=== PATIENT | male | born 1940 | race Caucasian/White ===

== ENCOUNTER 2018-03-15 07:16 | Day surgery (SDC) | payer MEDICARE ==
[2018-03-14 12:59] VITALS: BMI 27.0
[2018-03-15 07:38] VITALS: TEMP 97.6
[2018-03-15] MEDS ORDERED: LACTATED RINGERS 1,000 ML IV ONE (07:55)
--- NOTE | 2018-03-15 08:17 | P.GSHP ---
History of Present Illness H&P Date: 03/15/18 Chief Complaint: Sebaceous cyst of back This is a 77-year-old male who presents today for excision of sebaceous cyst back. Patient has had a sebaceous cyst for several years. He's had a previous excision. The area has intermittent inflammation. Past Medical History Past Medical History: Eye Disorder, Osteoarthritis (OA) Additional Past Medical History / Comment(s): "pre-diabetic", glaucoma, neuropathy feet History of Any Multi-Drug Resistant Organisms: None Reported Past Surgical History: Cholecystectomy, Joint Replacement Additional Past Surgical History / Comment(s): right hip replaced, cataract surg. Past Anesthesia/Blood Transfusion Reactions: No Reported Reaction Smoking Status: Never smoker - Past Family History Mother Family Medical History: No Reported History Medications and Allergies Home Medications Medication Instructions Recorded Confirmed Type Brimonidine Tartrate [Alphagan P 1 drops BOTH EYES BID 03/14/18 03/15/18 History 0.1% Ophth Soln] Allergies Allergy/AdvReac Type Severity Reaction Status Date / Time No Known Allergies Allergy Verified 03/15/18 07:39 Surgical - Exam Vital Signs Temp Pulse Resp BP Pulse Ox 97.6 F 67 18 146/73 98 03/15/18 07:37 03/15/18 07:37 03/15/18 07:37 03/15/18 07:37 03/15/18 07:37 - General well developed, no distress - Eyes PERRL - ENT normal pinna - Neck no masses - Respiratory normal expansion - Cardiovascular Rhythm: regular - Abdomen Abdomen: soft, non tender - Integumentary Sebaceous cyst of back. We'll perform excision.
[2018-03-15] MEDS ORDERED: LIDOCAINE 1% INJ 10MG/ML (20 ML MDV) ONE (08:29)
[2018-03-15] MEDS ORDERED: PROPOFOL 10 MG/ML 20 ML VIAL IV ONE (08:29)
[2018-03-15] MEDS ORDERED: LIDOCAINE 1%-EPI 1:100,000 30 ML VIAL SQ ONE (08:45)
[2018-03-15] MEDS ORDERED: SODIUM CHLORIDE 0.9% 50 ML with ceFAZolin 2,000 MG IV ONE ×2 (08:57)
--- NOTE | 2018-03-15 09:16 | P.OP ---
Date of Procedure: 03/15/18 Preoperative Diagnosis: Sebaceous cyst back Postoperative Diagnosis: Sebaceous cyst back Procedure(s) Performed: Excision of sebaceous cyst back Anesthesia: MAC Surgeon: Davion Sorensen Estimated Blood Loss (ml): 2 Pathology: other (Sebaceous cyst back) Condition: stable Disposition: PACU Description of Procedure: The patient's placed on the operative table in the lateral position. He received IV sedation. His back was prepped and draped in usual sterile fashion. The area of the sebaceous cyst anesthetized 1% local Xylocaine. Patient had a 3 cm sebaceous cyst. Excision of the skin was performed 15 blade. Electrocautery used to dissect the specimen free. The Bovie hemostasis. The skin was closed interrupted 3-0 Monocryl suture. Dermabond was applied. Patient tolerated the procedure well and was sent to recovery in stable condition.
[2018-03-15 09:26] VITALS: BP 166/77; PULSE 85; RESP 22
--- NOTE | 2018-03-20 09:21 | CDI ---
Outpatient Documentation Clarification Form Date : 02/18/2018 CDS/Pole Inspector Name: Hardeep Lopez Phone: If any questions, call Jesica Chacko Advanced Manufacturing Consultant at [phone] Patient Name: Yousuf Cisneros Admit Date: 03/15/2018 Discharge Date: 03/15/2018 ATTENTION: The [facility] Coding Staff appreciate your assistance in clarifying documentation. Please respond to the clarification below the line at the bottom and electronically sign. The [facility] Coding staff will review the response and follow-up if needed. Please note: Queries are made part of the Legal Health Record. If you have any questions, please contact the Advanced Manufacturing Consultant. Dear Dr. Sorensen, As per H&P it is documented as Pre-diabetes and as per Anesthesia notes it is documented as Diabetes. Please confirm whether Patient has Pre-diabetes or Diabetes (with blood glucose values). Thank you for your kind consideration. MTDD
== END 2018-03-15 09:56 | disposition home or self-care (01) ==
LOC: OR 07:16
PROVIDERS: ATTEND Surgery
DX: L02.212 Cutaneous abscess of back [any part, except buttock and flank] (principal); M19.90 Unspecified osteoarthritis, unspecified site; Z96.641 Presence of right artificial hip joint; E11.39 Type 2 diabetes mellitus with other diabetic ophthalmic complication; E11.40 Type 2 diabetes mellitus with diabetic neuropathy, unspecified; Z90.49 Acquired absence of other specified parts of digestive tract; H42 Glaucoma in diseases classified elsewhere; H40.9 Unspecified glaucoma; Z79.899 Other long term (current) drug therapy
CPT/HCPCS: 11403; 88304; J2001; J0690; J2704

== ENCOUNTER 2021-05-01 17:07 | Inpatient (IN) | payer MEDICARE ==
[2021-05-01] MEDS ORDERED: SODIUM CHLORIDE 0.9% 500 ML 500 ML IV STA (17:50)
--- NOTE | 2021-05-01 18:00 | ED ---
General Adult HPI - General Source: patient, family, EMS, RN notes reviewed, old records reviewed Mode of arrival: EMS Limitations: no limitations - History of Present Illness -: hour(s) (14) Location: chest, right, upper extremity, lower extremity (Bilateral lower) Severity scale (1-10): 1 Quality: aching Consistency: constant Associated Symptoms: weakness Treatments Prior to Arrival: none <Anthony Solorzano - Last Filed: 05/01/21 19:05> <Jennifer Lu - Last Filed: 05/01/21 23:05> - General Chief complaint: Fall Stated complaint: fall Time Seen by Provider: 05/01/21 17:38 - History of Present Illness Initial comments: This is a 80-year-old white male that presents to the emergency room with his daughter. Patient states that he was in bed sleeping at 3 AM woke up due to arthritis pain and reached over to get some pain medication. He states that the table broke and he fell off the bed landing on his abdomen. He laid there all night long until family found him. Patient denies any head injuries. He states that he has no pain other than his arthritis pain. He does state that he has right arm weakness which has been like that for a couple of years. He has a right facial droop and slurred speech that he also states has been present for 2 years. His daughter states that he seems worse to her. She states that the weakness of the right hand is definitely new. Patient states he's never been diagnosed as having a stroke. His daughter does state that his right pupil is larger than his left. He does not take any blood thinners. He states that he was unable to get up on his own because of the weakness in his hands from his arthritis. He was incontinent of bowel and bladder while laying on the floor (Anthony Solorzano) - Related Data Home Medications Medication Instructions Recorded Confirmed Ibuprofen [Advil] 200 mg PO DAILY 05/01/21 05/01/21 Allergies Allergy/AdvReac Type Severity Reaction Status Date / Time No Known Allergies Allergy Verified 05/01/21 19:14 Review of Systems ROS Other: All systems not noted in ROS Statement are negative. <Anthony Solorzano - Last Filed: 05/01/21 19:05> ROS Other: All systems not noted in ROS Statement are negative. <Jennifer Lu - Last Filed: 05/01/21 23:05> ROS Statement: Those systems with pertinent positive or pertinent negative responses have been documented in the HPI. Past Medical History Past Medical History: Eye Disorder, Osteoarthritis (OA) Additional Past Medical History / Comment(s): "pre-diabetic", glaucoma, neuropathy feet History of Any Multi-Drug Resistant Organisms: None Reported Past Surgical History: Cholecystectomy, Joint Replacement Additional Past Surgical History / Comment(s): right hip replaced, cataract surg. Past Anesthesia/Blood Transfusion Reactions: No Reported Reaction Past Psychological History: No Psychological Hx Reported Past Alcohol Use History: None Reported Past Drug Use History: None Reported - Past Family History Mother Family Medical History: No Reported History <Anthony Solorzano - Last Filed: 05/01/21 19:05> General Exam Limitations: no limitations General appearance: alert, in no apparent distress Head exam: Present: atraumatic, normocephalic, normal inspection Eye exam: Present: EOMI, other (Right pupil at 5 left pupil at 4). Absent: scleral icterus, conjunctival injection, nystagmus Pupils: Present: unequal ENT exam: Present: normal exam, normal oropharynx, mucous membranes dry Neck exam: Present: normal inspection, full ROM. Absent: tenderness, meningismus, lymphadenopathy, thyromegaly Respiratory exam: Present: normal lung sounds bilaterally. Absent: respiratory distress, wheezes, rales, rhonchi, stridor, accessory muscle use, decreased breath sounds Cardiovascular Exam: Present: regular rate, normal rhythm, normal heart sounds. Absent: systolic murmur, diastolic murmur, rubs, gallop, clicks GI/Abdominal exam: Present: soft, other (Abrasions and redness to the mid chest). Absent: distended, tenderness Right Elbow exam: Present: abrasion. Absent: tenderness, laceration, deformity Forearm Wrist exam: Present: abrasion. Absent: tenderness, laceration, deformity Hand Wrist exam: Present: other (Weakness and inability to flex and extend fingers) Neuro motor exam: Absent: wrist extension intact, thumb opposition intact, thumb IP flexion intact, thumb adduction intact, fingers 2-5 abduction intact Vascular: Present: normal capillary refill, radial pulse. Absent: vascular compromise Back exam: Present: normal inspection. Absent: tenderness, CVA tenderness (R), CVA tenderness (L), rash noted Neurological exam: Present: alert Expanded Cranial nerves: EOM's Intact: Normal, Gag Reflex: Normal, Tongue Deviation: Normal Cerebellar function: Finger to Nose: Normal, Heel to [place]: Normal Motor strength exam: RUE: 4, LUE: 5, RLE: 5, LLE: 5 Eye Response: (4) open spontaneously Motor Response: (6) obeys commands Verbal Response: (5) oriented Navin Total: 15 Psychiatric exam: Present: normal affect, normal mood Skin exam: Present: warm, dry, intact, normal color. Absent: rash, cyanosis, diaphoretic, petechiae, pallor <Anthony Solorzano - Last Filed: 05/01/21 19:05> Course Vital Signs 05/01/21 05/01/21 05/01/21 17:08 20:17 21:24 Temperature 99.9 F H 102.1 F H Pulse Rate 94 87 101 H Respiratory 17 18 18 Rate Blood Pressure 157/79 138/72 128/98 O2 Sat by Pulse 96 97 94 L Oximetry 05/01/21 05/01/21 22:53 23:02 Temperature 100.2 F H 100.8 F H Pulse Rate 92 Respiratory 18 Rate Blood Pressure 108/78 O2 Sat by Pulse 94 L Oximetry EKG Findings - EKG Results: EKG: sinus rhythm (Ventricular rate 94, RI interval .184, QRS of 0.88, QTc 0.437; normal sinus rhythm) <Anthony Solorzano - Last Filed: 05/01/21 19:05> Medical Decision Making - Lab Data Result diagrams: 05/01/21 18:00 05/01/21 18:00 <Anthony Solorzano - Last Filed: 05/01/21 19:05> - Lab Data Result diagrams: 05/01/21 18:00 05/01/21 18:00 <Jennifer Lu - Last Filed: 05/01/21 23:05> - Medical Decision Making The patient was seen and evaluated by the mid-level provider however given his slurred speech and right arm weakness I was asked to evaluate the patient immediately. Patient's slurred speech is been present for approximately 2 years. The weakness in the right arm is new today, patient does have a wrist drop. I suspect this may be due to neurapraxia likely positional from being on the floor for 14 hours. Labs were ordered CT was ordered Labs resulted multiple abnormalities. Troponin is detectable but not elevated to concerning level. Patient does have a lactic acidosis and elevated crea tinine kinase consistent with a rhabdomyolysis. Patient did develop a fever of unknown work and while in the emergency department this improved to immediately with antipyretics and IV fluids. Patient care was discussed with the patient's primary care physician Dr. Lopez who agrees with the plan for admission, IV fluid resuscitation and possible evaluation by neurology for the patient's speech difficulties which are not new and new onset of right arm weakness. Patient incontinent of urine while in the emergency department. When attempted to urinate on bedside commode also had a bowel movement therefore urinalysis was not obtained in the emergency department. (Jennifer Lu) - Lab Data Lab Results 05/01/21 05/01/21 05/01/21 Range/Units 18:00 18:00 18:00 WBC 10.3 (3.8-10.6) k/uL RBC 4.67 (4.30-5.90) m/uL Hgb 14.5 (13.0-17.5) gm/dL Hct 43.0 (39.0-53.0) % MCV 92.2 (80.0-100.0) fL MCH 31.1 (25.0-35.0) pg MCHC 33.7 (31.0-37.0) g/dL RDW 13.2 (11.5-15.5) % Plt Count 245 (150-450) k/uL MPV 8.0 Neutrophils % (Manual) 78 % Band Neuts % (Manual) 9 % Lymphocytes % (Manual) 5 % Monocytes % (Manual) 8 % Neutrophils # (Manual) 8.90 H (1.3-7.7) k/uL Lymphocytes # (Manual) 0.52 L (1.0-4.8) k/uL Monocytes # (Manual) 0.82 (0-1.0) k/uL Nucleated RBCs 0 (0-0) /100 WBC Manual Slide Review Performed PT 12.2 H (9.0-12.0) sec INR 1.2 H (<1.2) APTT 23.7 (22.0-30.0) sec Sodium 140 (137-145) mmol/L Potassium 3.6 (3.5-5.1) mmol/L Chloride 108 H (98-107) mmol/L Carbon Dioxide 21 L (22-30) mmol/L Anion Gap 11 mmol/L BUN 20 (9-20) mg/dL Creatinine 0.94 (0.66-1.25) mg/dL Est GFR (CKD-EPI)AfAm 89 (>60 ml/min/1.73 sqM) Est GFR (CKD-EPI)NonAf 77 (>60 ml/min/1.73 sqM) Glucose 134 H (74-99) mg/dL POC Glucose (mg/dL) (75-99) mg/dL POC Glu [employer] Supervisor ID Lactic Ac Sepsis Rflx Plasma Lactic Acid John (0.7-2.0) mmol/L Calcium 9.2 (8.4-10.2) mg/dL Magnesium 1.6 (1.6-2.3) mg/dL Total Bilirubin 1.6 H (0.2-1.3) mg/dL AST 71 H (17-59) U/L ALT 25 (4-49) U/L Alkaline Phosphatase 65 (38-126) U/L CK-MB (CK-2) (0.0-2.4) ng/mL Troponin I (0.000-0.034) ng/mL Total Protein 6.6 (6.3-8.2) g/dL Albumin 3.7 (3.5-5.0) g/dL 05/01/21 05/01/21 05/01/21 Range/Units 18:00 18:00 19:09 WBC (3.8-10.6) k/uL RBC (4.30-5.90) m/uL Hgb (13.0-17.5) gm/dL Hct (39.0-53.0) % MCV (80.0-100.0) fL MCH (25.0-35.0) pg MCHC (31.0-37.0) g/dL RDW (11.5-15.5) % Plt Count (150-450) k/uL MPV Neutrophils % (Manual) % Band Neuts % (Manual) % Lymphocytes % (Manual) % Monocytes % (Manual) % Neutrophils # (Manual) (1.3-7.7) k/uL Lymphocytes # (Manual) (1.0-4.8) k/uL Monocytes # (Manual) (0-1.0) k/uL Nucleated RBCs (0-0) /100 WBC Manual Slide Review PT (9.0-12.0) sec INR (<1.2) APTT (22.0-30.0) sec Sodium (137-145) mmol/L Potassium (3.5-5.1) mmol/L Chloride (98-107) mmol/L Carbon Dioxide (22-30) mmol/L Anion Gap mmol/L BUN (9-20) mg/dL Creatinine (0.66-1.25) mg/dL Est GFR (CKD-EPI)AfAm (>60 ml/min/1.73 sqM) Est GFR (CKD-EPI)NonAf (>60 ml/min/1.73 sqM) Glucose (74-99) mg/dL POC Glucose (mg/dL) (75-99) mg/dL POC Glu [employer] Supervisor ID Lactic Ac Sepsis Rflx Y Plasma Lactic Acid John 2.3 H* (0.7-2.0) mmol/L Calcium (8.4-10.2) mg/dL Magnesium (1.6-2.3) mg/dL Total Bilirubin (0.2-1.3) mg/dL AST (17-59) U/L ALT (4-49) U/L Alkaline Phosphatase (38-126) U/L CK-MB (CK-2) 7.8 H (0.0-2.4) ng/mL Troponin I 0.051 H* (0.000-0.034) ng/mL Total Protein (6.3-8.2) g/dL Albumin (3.5-5.0) g/dL 05/01/21 Range/Units 20:02 WBC (3.8-10.6) k/uL RBC (4.30-5.90) m/uL Hgb (13.0-17.5) gm/dL Hct (39.0-53.0) % MCV (80.0-100.0) fL MCH (25.0-35.0) pg MCHC (31.0-37.0) g/dL RDW (11.5-15.5) % Plt Count (150-450) k/uL MPV Neutrophils % (Manual) % Band Neuts % (Manual) % Lymphocytes % (Manual) % Monocytes % (Manual) % Neutrophils # (Manual) (1.3-7.7) k/uL Lymphocytes # (Manual) (1.0-4.8) k/uL Monocytes # (Manual) (0-1.0) k/uL Nucleated RBCs (0-0) /100 WBC Manual Slide Review PT (9.0-12.0) sec INR (<1.2) APTT (22.0-30.0) sec Sodium (137-145) mmol/L Potassium (3.5-5.1) mmol/L Chloride (98-107) mmol/L Carbon Dioxide (22-30) mmol/L Anion Gap mmol/L BUN (9-20) mg/dL Creatinine (0.66-1.25) mg/dL Est GFR (CKD-EPI)AfAm (>60 ml/min/1.73 sqM) Est GFR (CKD-EPI)NonAf (>60 ml/min/1.73 sqM) Glucose (74-99) mg/dL POC Glucose (mg/dL) 102 H (75-99) mg/dL POC Glu [employer]eles[employer] Supervisor ID Syed [place] Lactic Ac Sepsis Rflx Plasma Lactic Acid John (0.7-2.0) mmol/L Calcium (8.4-10.2) mg/dL Magnesium (1.6-2.3) mg/dL Total Bilirubin (0.2-1.3) mg/dL AST (17-59) U/L ALT (4-49) U/L Alkaline Phosphatase (38-126) U/L CK-MB (CK-2) (0.0-2.4) ng/mL Troponin I (0.000-0.034) ng/mL Total Protein (6.3-8.2) g/dL Albumin (3.5-5.0) g/dL Disposition <Anthony Solorzano - Last Filed: 05/01/21 19:05> Is patient prescribed a controlled substance at d/c from ED?: No <Jennifer Lu - Last Filed: 05/01/21 23:05> Clinical Impression: Rhabdomyolysis, Fall at home, Slurred speech, Right wrist drop Disposition: ADMITTED IP TO THIS HOSP Condition: Serious
--- NOTE | 2021-05-01 18:45 | XR ---
EXAMINATION TYPE: XR chest 2V DATE OF EXAM: 05/01/2021 COMPARISON: NONE HISTORY: Weakness TECHNIQUE: 2 views FINDINGS: There is no heart failure nor confluent pneumonic infiltrate. There is small linear density at the left lung base. There are chest leads. Bony thorax is intact. IMPRESSION: Subsegmental atelectasis left lung base. Normal heart.
[2021-05-01 18:49] LABS: Albumin 3.7 g/dL (3.5-5.0); Calcium 9.2 mg/dL (8.4-10.2); Magnesium 1.6 mg/dL (1.6-2.3); Potassium 3.6 mmol/L (3.5-5.1); Total Bilirubin 1.6 mg/dL (0.2-1.3); Total Protein 6.6 g/dL (6.3-8.2)
[2021-05-01 18:59] LABS: HGB 14.5 gm/dL (13.0-17.5); MCH 31.1 pg (25.0-35.0); MCHC 33.7 g/dL (31.0-37.0); MCV 92.2 fL (80.0-100.0); Platelet Count 245 k/uL (150-450); RBC 4.67 m/uL (4.30-5.90); RDW 13.2 % (11.5-15.5); WBC 10.3 k/uL (3.8-10.6)
--- NOTE | 2021-05-01 18:59 | CT ---
EXAMINATION TYPE: CT brain mayco mata con DATE OF EXAM: 05/01/2021 COMPARISON: None HISTORY: weakness CT DLP: 1457 mGycm Automated exposure control for dose reduction was used. Images obtained of the brain and cervical spine without contrast. There is some cerebral cortical atrophy. There is no mass effect nor midline shift. There is no sign of intracranial hemorrhage. Calvarium is intact. There is normal aeration of the mastoid sinuses. Cervical vertebra show some straightening. There is anterior spurring from C4 to C7 with bridging ost eophytes. Posterior elements are intact. There is no compression fracture. 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 No fracture. Cerebral atrophy. No acute intracranial abnormality.
[2021-05-01 19:02] LABS: INR 1.2 (<1.2); Partial Thromboplastin Time 23.7 sec (22.0-30.0); Prothrombin Time 12.2 sec (9.0-12.0)
[2021-05-01 19:07] LABS: Creatine Kinase MB 7.8 ng/mL (0.0-2.4)
[2021-05-01 19:10] LABS: Troponin I 0.051 ng/mL (0.000-0.034)
[2021-05-01] MEDS ORDERED: SODIUM CHLORIDE 0.9% 500 ML 500 ML IV ONE (19:13)
[2021-05-01 19:31] LABS: Band Neutrophils % 9 %; Lymphocytes # (M) 0.52 k/uL (1.0-4.8); Monocytes # (M) 0.82 k/uL (0-1.0); Neutrophils % (M) 78 %; Nucleated Red Blood Cells 0 /100 WBC (0-0); Total Cells Counted 100
[2021-05-01 20:03] LABS: Glucose,Whole Blood 102 mg/dL (75-99)
[2021-05-01] MEDS ORDERED: NALOXONE 0.4 MG/ML 1 ML VIAL IV PRN (20:16)
[2021-05-01] MEDS ORDERED: ACETAMINOPHEN TAB 325 MG TAB PO STA (21:26)
[2021-05-01] MEDS ORDERED: IBUPROFEN 400 MG TAB PO PRN (22:17)
[2021-05-01] MEDS ORDERED: ACETAMINOPHEN TAB 325 MG TAB PO PRN (22:17)
[2021-05-01] MEDS: SODIUM CHLORIDE 0.9% 1,000 ML IV SCH (22:58)
[2021-05-01 23:37] LABS: Appearance,Urine Clear (Clear); Bilirubin,Urine Negative (Negative); Blood,Urine Small (Negative); Color,Urine Yellow; Glucose,Urine (UA) Negative (Negative); Hyaline Casts,Urine 1 /lpf (0-2); Ketones,Urine Trace (Negative); Leukocyte Esterase,Urine Negative (Negative); Mucus,Urine Rare /hpf; Nitrite,Urine Negative (Negative); PH, Urine 5.5 (5.0-8.0); Protein,Urine 1+ (Negative); RBC,Urine 3 /hpf (0-5); Specific Gravity,Urine 1.026 (1.001-1.035); Squamous Epithelial Cell,Urine <1 /hpf (0-4); Urobilinogen,Urine <2.0 mg/dL (<2.0); WBC,Urine 1 /hpf (0-5)
[2021-05-02] MEDS ORDERED: traMADol 50 MG TAB PO PRN (11:36)
--- NOTE | 2021-05-02 12:17 | XR ---
EXAMINATION TYPE: XR wrist limited 3 views RT, XR hand limited 2 views RT DATE OF EXAM: 05/02/2021 COMPARISON: NONE HISTORY: 80-year-old male pain after fall. FINDINGS: Wrist: The radiocarpal and distal radial ulnar joint as well as the midcarpal compartment appear intact. How ever, there is bony irregularity along the proximal ulnar aspect of the lunate bone. No acute fractur e, subluxation, dislocation is seen. Osteopenia. Hands: Mild degenerative change first CMC and triscaphe joints. Mild osteoarthritic change throughout the DI P joints. No displaced fracture. No subluxation or dislocation. IMPRESSION (wrist and hand): 1. Osteopenia. No displaced fracture seen. 2. Scattered mild osteoarthritic change at the DIP joints and base of the thumb. 3. 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
[2021-05-02] MEDS: HEPARIN SODIUM,PORCINE/PF 5,000 UNIT/0.5 ML SYRINGE SQ SCH ×2 (12:19→21:08)
[2021-05-02] MEDS: PANTOPRAZOLE 40 MG TABLET PO SCH (12:19)
[2021-05-02] MEDS: SODIUM CHLORIDE 0.9% 1,000 ML IV SCH ×2 (12:21→16:52)
--- NOTE | 2021-05-02 12:25 | P.HPIM ---
History of Present Illness H&P Date: 05/02/21 (Fell on the floor or 14/15 hours with the rhabdomyolysis.) Chief Complaint: Fell down off the bed on his face could not get up stayed on the floor Past Medical History Past Medical History: Eye Disorder, Osteoarthritis (OA) Additional Past Medical History / Comment(s): "pre-diabetic", glaucoma, neuropathy feet History of Any Multi-Drug Resistant Organisms: None Reported Past Surgical History: Cholecystectomy, Joint Replacement Additional Past Surgical History / Comment(s): right hip replaced, cataract surg. Past Anesthesia/Blood Transfusion Reactions: No Reported Reaction Past Psychological History: No Psychological Hx Reported Past Alcohol Use History: None Reported Past Drug Use History: None Reported - Past Family History Mother Family Medical History: No Reported History Medications and Allergies Home Medications Medication Instructions Recorded Confirmed Type Ibuprofen [Advil] 200 mg PO DAILY 05/01/21 05/01/21 History Allergies Allergy/AdvReac Type Severity Reaction Status Date / Time No Known Allergies Allergy Verified 05/01/21 19:14 Physical Exam Vitals: Vital Signs Temp Pulse Resp BP Pulse Ox 05/02/21 07:22 98.4 F 05/02/21 07:19 85 16 112/64 96 05/02/21 06:58 97.9 F 70 19 112/62 95 05/02/21 03:00 99.0 F 87 15 102/32 95 05/01/21 23:02 100.8 F H 05/01/21 22:53 100.2 F H 92 18 108/78 94 L 05/01/21 21:24 102.1 F H 101 H 18 128/98 94 L 05/01/21 20:17 87 18 138/72 97 05/01/21 17:08 99.9 F H 94 17 157/79 96 Intake and Output 05/01/21 05/02/21 05/02/21 22:59 06:59 14:59 Other: # Voids 2 # Bowel Movements 2 Weight 83.461 kg - Constitutional General appearance: average body habitus, disheveled, mild distress - EENT Eyes: abnormal pupil, anicteric sclerae, EOMI, dentition normal Ears: bilateral: obstructed by cerumen - Neck Neck: normal ROM Carotids: bilateral: upstroke normal Thyroid: negative: normal size - Respiratory Respiratory: negative: CTA, diminished, dullness, rales, rhonchi, wheezing, prolonged expiration, prolonged inspiration - Cardiovascular Heart rate: 68 Rhythm: regular Heart sounds: normal: S1, S2 - Gastrointestinal General gastrointestinal: normal bowel sounds - Genitourinary Incontinent of urine and stools - Neurologic Right facial drooping, nasolabial fold flat on the right side, abnormal uvula, end of the mouth deviated to the left side of the face as well as the tongue to the right side, inability to use the upper extremities. Hand and wrist as well Neurologic: CNII-XII intact - Musculoskeletal Musculoskeletal: right sided weakness (Right lower extremities longer than the left lower extremities.) Slurred speech inability to walk except with a rocking, history of stroke. Probably affecting the internal capsule. Results CBC & Chem 7: 05/01/21 18:00 05/01/21 18:00 Labs: Abnormal Lab Results - Last 24 Hours (Table) 05/01/21 05/01/21 05/01/21 Range/Units 18:00 18:00 18:00 Neutrophils # (Manual) 8.90 H (1.3-7.7) k/uL Lymphocytes # (Manual) 0.52 L (1.0-4.8) k/uL PT 12.2 H (9.0-12.0) sec INR 1.2 H (<1.2) Chloride 108 H (98-107) mmol/L Carbon Dioxide 21 L (22-30) mmol/L Glucose 134 H (74-99) mg/dL POC Glucose (mg/dL) (75-99) mg/dL Plasma Lactic Acid John (0.7-2.0) mmol/L Total Bilirubin 1.6 H (0.2-1.3) mg/dL AST 71 H (17-59) U/L Creatine Kinase (55-170) U/L CK-MB (CK-2) (0.0-2.4) ng/mL Troponin I (0.000-0.034) ng/mL Urine Protein (Negative) Urine Ketones (Negative) Urine Blood (Negative) Urine Mucus (None) /hpf 05/01/21 05/01/21 05/01/21 Range/Units 18:00 18:00 20:02 Neutrophils # (Manual) (1.3-7.7) k/uL Lymphocytes # (Manual) (1.0-4.8) k/uL PT (9.0-12.0) sec INR (<1.2) Chloride (98-107) mmol/L Carbon Dioxide (22-30) mmol/L Glucose (74-99) mg/dL POC Glucose (mg/dL) 102 H (75-99) mg/dL Plasma Lactic Acid John 2.3 H* (0.7-2.0) mmol/L Total Bilirubin (0.2-1.3) mg/dL AST (17-59) U/L Creatine Kinase (55-170) U/L CK-MB (CK-2) 7.8 H (0.0-2.4) ng/mL Troponin I 0.051 H* (0.000-0.034) ng/mL Urine Protein (Negative) Urine Ketones (Negative) Urine Blood (Negative) Urine Mucus (None) /hpf 05/01/21 05/01/21 05/01/21 Range/Units 21:13 21:35 23:15 Neutrophils # (Manual) (1.3-7.7) k/uL Lymphocytes # (Manual) (1.0-4.8) k/uL PT (9.0-12.0) sec INR (<1.2) Chloride (98-107) mmol/L Carbon Dioxide (22-30) mmol/L Glucose (74-99) mg/dL POC Glucose (mg/dL) (75-99) mg/dL Plasma Lactic Acid John 2.2 H* (0.7-2.0) mmol/L Total Bilirubin (0.2-1.3) mg/dL AST (17-59) U/L Creatine Kinase 2716 H* (55-170) U/L CK-MB (CK-2) (0.0-2.4) ng/mL Troponin I (0.000-0.034) ng/mL Urine Protein 1+ H (Negative) Urine Ketones Trace H (Negative) Urine Blood Small H (Negative) Urine Mucus Rare H (None) /hpf
[2021-05-02] MEDS ORDERED: MD COMMUNICATION TO PHARMACY 1 EACH MISC PO PRN (13:56)
[2021-05-02] MEDS: VANCOMYCIN 125 MG CAPSULE PO SCH ×3 (16:51→21:09)
[2021-05-02 17:08] LABS: Chol/HDL Ratio 3.27; LDL Cholesterol,Calculated 77.6 mg/dL (0.0-131.0); VLDL Calculation 15.4 mg/dL (5.00-40.00)
[2021-05-03] MEDS: SODIUM CHLORIDE 0.9% 1,000 ML IV SCH ×3 (04:54→20:57)
[2021-05-03] MEDS: HEPARIN SODIUM,PORCINE/PF 5,000 UNIT/0.5 ML SYRINGE SQ SCH ×3 (04:54→20:57)
[2021-05-03] MEDS: PANTOPRAZOLE 40 MG TABLET PO SCH (06:53)
[2021-05-03 08:48] LABS: Basophils % (A) 0 %; Eosinophils # (A) 0.2 k/uL (0-0.7); Eosinophils % (A) 2 %; HCT 39.6 % (39.0-53.0); HGB 12.8 gm/dL (13.0-17.5); Lymphocytes # (A) 1.2 k/uL (1.0-4.8); Lymphocytes % (A) 15 %; MCH 30.7 pg (25.0-35.0); MCHC 32.2 g/dL (31.0-37.0); MCV 95.2 fL (80.0-100.0); Mean Platelet Volume 7.7; Monocytes # (A) 0.7 k/uL (0-1.0); Monocytes % (A) 9 %; Neutrophils # (A) 5.4 k/uL (1.3-7.7); Neutrophils % (A) 69 %; Platelet Count 196 k/uL (150-450); RBC 4.16 m/uL (4.30-5.90); RDW 12.9 % (11.5-15.5); WBC 7.8 k/uL (3.8-10.6)
[2021-05-03 09:04] LABS: African American GFR (CKD) >90 (>60 ml/min/1.73 sqM); Anion Gap 6 mmol/L; Blood Urea Nitrogen 13 mg/dL (9-20); Calcium 7.9 mg/dL (8.4-10.2); Carbon Dioxide 19 mmol/L (22-30); Chloride 114 mmol/L (98-107); Creatine Kinase 651 U/L (55-170); Glucose 91 mg/dL (74-99); Magnesium 1.7 mg/dL (1.6-2.3); Non-African American GFR(CKD) 89 (>60 ml/min/1.73 sqM); Potassium 3.5 mmol/L (3.5-5.1); Sodium 139 mmol/L (137-145)
[2021-05-03] MEDS: DORZOLAMIDE-TIMOLOL 2.23%/0.68 10ML BTL BOTH EYES SCH ×2 (09:06→21:01)
[2021-05-03] MEDS: ARTIFICIAL TEARS-HYPROMELLOSE DROPS 15 ML BTL BOTH EYES SCH ×3 (09:06→21:01)
[2021-05-03] MEDS: BRIMONIDINE TARTRATE 0.2% DROPS 5 ML BTL BOTH EYES SCH ×2 (09:06→21:01)
[2021-05-03] MEDS: VANCOMYCIN 125 MG CAPSULE PO SCH ×4 (09:06→20:58)
--- NOTE | 2021-05-03 11:45 | MR ---
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 FINDINGS: Diffusion weighted images demonstrate no evidence of a recent infarct or other diffusion ab normality. There is no extra-axial fluid collection. There is some scattered hyperintensities along the external capsule region, basal ganglia on the left on inversion recovery T2-weighted sequences, some confluent hyperintensity in the pericallosal, subcortical white matter. The ventricular system a nd cisternal spaces are normal in size and appearance. The brain volume is age appropriate, there is cortical atrophy. The internal auditory canals, cerebellopontine angles are unremarkable. There is some inflammatory ch jeffery in the mastoid air cells on the right. Midline structures demonstrate normal morphology, there is a partially empty sella. The craniocervic al junction appears within normal limits. Post contrast images demonstrate no abnormal enhancement. The dural venous sinuses appear patent. The visualized sinuses are clear and the globes are intact. IMPRESSION: Age-related changes of atrophy and chronic small vessel ischemia among no evident cerebel lopontine angle mass or subacute ischemia
[2021-05-03] MEDS: SODIUM BICARBONATE TAB 650 MG TAB PO SCH ×2 (13:26→20:57)
[2021-05-03] MEDS: ASPIRIN 81 MG PO SCH (13:27)
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
--- NOTE | 2021-05-03 14:46 | US ---
EXAMINATION TYPE: US carotid duplex BILAT DATE OF EXAM: 05/03/2021 COMPARISON: NONE CLINICAL HISTORY: fall, weakness. Weakness, slurred speech EXAM MEASUREMENTS: RIGHT: Peak Systolic Velocity (PSV) cm/sec ----- Right CCA: 73.2 ----- Right ICA: 93.0 ----- Right ECA: 122.4 ICA/CCA ratio: 1.3 RIGHT: End Diastole cm/sec ----- Right CCA: 13.8 ----- Right ICA: 24.8 ----- Right ECA: 0.0 LEFT: Peak Systolic Velocity (PSV) cm/sec ----- Left CCA: 76.6 ----- Left ICA: 116.0 ----- Left ECA: 108.5 ICA/CCA ratio: 1.5 LEFT: End Diastole cm/sec ----- Left CCA: 11.7 ----- Left ICA: 16.3 ----- Left ECA: 0.0 VERTEBRALS (direction of flow): Right Vertebral: Antegrade Left Vertebral: Antegrade Rhythm: Normal Grayscale, color Doppler, spectral Doppler imaging performed of the carotid arteries. Waveform analys is does not show significant stenosis of the internal carotid arteries. No significant stenosis seen bilaterally IMPRESSION: No hemodynamic significant stenosis of the proximal internal carotid arteries by Doppler criteria, an indirect measurement of carotid stenosis Criteria for Assigning % of Stenosis / Diameter reduction (Estimation based on the indirect measurements of the internal carotid artery velocities (ICA PSV). 1. Normal (no stenosis)=ICA PSV < 125 cm/s: ratio < 2.0: ICA EDV<40 cm/s. 2. Less than 50% stenosis=ICA PSV < 125 cm/s: ratio < 2.0: ICA EDV<40 cm/s. 3. 50 to 69% stenosis=ICA PSV of 125 to 230 cm/s: ration 2.0 ? 4.0: ICA EDV 40-100 cm/s. 4. Greater than 70% stenosis to near occlusion= ICA PSV > 230 cm/s: ratio > 4.0: ICA EDV > 100 cm/s. 5. Near occlusion= ICA PSV velocities may be low or undetectable: variable ratio and ICA EDV. 6. Total occlusion=unable to detect flow.
--- NOTE | 2021-05-03 17:35 | P.PN ---
Subjective Progress Note Date: 05/03/21 (, C. difficile diarrhea.) Principal diagnosis: Diagnosis #1 rhabdomyolysis, fell off the bed could not get up a down on the floor for 14- 15 hours. #2 incontinent of urine and stools associated with diarrhea positive for C. difficile treated with vancomycin, and infectious disease consultation. #3 right facial drooping, slurred speech, weakness on the right side, midline walking difficulties with the underlying suspicious of old CVA in the left hemispheric clinically. #4 lactic acidosis, with metabolic acidosis. Secondary to rhabdomyolysis and muscle breakdown. #5 bilateral cataract surgery and present of glucoma treated by line server Dr. Dr. Ireland. #6 right hip surgery arthroplasty, done in [place], right leg longer than the left leg with need adjustment in his feet. #7 right wrist drop likely due to right radial nerve compression from prolonged lying on the floor. #8 possible history of CVA with mild residual dysarthria and right facial asymmetry with the MRI and the computed tomography scan was negative. #9 C. difficile positive was colitis diarrhea. #10 osteoarthritis #11 abnormal a LT urology unclear #12 severe hearing deficit with the hearing aid. #13 MRI done today revealed scattered hyper intensities along the external capsule region and the basal ganglia on the left on inversion recovery T2 weighted sequences, some hyper intensity in thepericallosal, sup cortical white matter. Which substantiate the clinical evidence of stroke right sided with the fascial drooping on the right side and slurred speech which happened on the left side of the brain no acute stroke. #14 LDL 77 Progress note Date of service 05/03/2021. Dictation by Dr. Lopez. Patient seen today [id number] and discussed with patient and his daughter and his son-in-law. Dr. Reyes neurologist did see the patient evaluated him today and he ordered some laboratories. MRI of the brain was indicating no acute stroke however changes in the left hemispheric could be related to old stroke consistent with the current manifestation. With the presence all hyper intensity along the external capsule region, basal ganglia on the left on inversion recovery [id number] sequence as well hyper intensity in the pericallosal, subcortical white matter. Carotid duplex study was no hemodynamic significant stenosis. Consultation with physical therapy, occupational therapy, speech therapy was ordered. C. difficile testing positive for the diarrhea patient started on vancomycin oral 4 times a day and consultation with infectious disease for for further input or treatment. Patient will need inpatient rehabilitation at [facility] or [facility] recovery and [facility] his [facility]. Patient is conscious alert he able to eat with natural teeth however he stated that he had occasionally choking. Speech pathology was consulted Head was normocephalic and atraumatic, pupil right pupil wider than the left pupil , right fascial drooping with loss of nasolabial fold, angle of the mouth pulled to the left side. Speech is slurred and difficult to understand. 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 Neck was supple no JVD no thyromegaly no lymphadenopathy trachea midline. Chest: Clear to auscultation and percussion no wheezes nor rhonchi's. Heart: Regular sinus rhythm no dysrhythmia and no history of heart attack in the past or angina. Abdomen soft positive bowel sounds no tenderness in the 4 quadrants, wearing diaper with incontinent of the urine and the p.m. with the underlying history of diarrhea. 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 No evidence of fracture, no edema, positive pulses bilateral 1+ over 2+ with the underlying mild peripheral vascular disease. The left lower extremities shorter than the right lower extremities Right total hip arthroplasty in [place]. Assessment: #1 need for further rehabilitation and adjustment shoes for the lower extremities to balance. #2 need for rehabilitation in a fdc of patient choice. #3 diarrhea with C. difficile need to be treated and we did consult Dr. Daniel infectious disease. #4 remote history of CVA clinically present with the underlying clinically positive criteria and the MRI did not clear that he has acute stroke on this admission Patient is a new to me and the first time number seen in the office before. With vague past history #5 metabolic acidosis started on sodium bicarb 325 mg twice a day with the carbon dioxide 19. Line #6 rhabdomyolysis. Plan: We will wait for the results of the testing ordered by Dr. Childs neurologist Physical therapy, speech therapy, *Started fdc for long-term rehabilitation. Rhabdomyolysis is still high and will check again tomorrow. Lactic acid normalized. Objective - Vital Signs Vital signs: Vital Signs Temp 98.1 F 05/03/21 08:00 Pulse 90 05/03/21 12:00 Resp 18 05/03/21 12:00 BP 132/63 05/03/21 12:00 Pulse Ox 96 05/03/21 12:00 Intake & Output 05/02/21 05/03/21 05/03/21 18:59 06:59 18:59 Intake Total 240 Output Total 1 2 1 Balance -1 -2 239 Weight 79.379 kg 86 kg Intake: Oral 240 Output: Stool 1 2 1 Other: Voiding Method Bedside Commode Diaper Diaper Diaper Incontinent Incontinent Incontinent # Voids 1 2 # Bowel Movements 1 2 - Labs CBC & Chem 7: 05/03/21 07:40 05/03/21 07:40 Labs: Abnormal Lab Results - Last 24 Hours (Table) 05/03/21 05/03/21 Range/Units 07:40 07:40 RBC 4.16 L (4.30-5.90) m/uL Hgb 12.8 L (13.0-17.5) gm/dL Chloride 114 H (98-107) mmol/L Carbon Dioxide 19 L (22-30) mmol/L Calcium 7.9 L (8.4-10.2) mg/dL Creatine Kinase 651 H (55-170) U/L
[2021-05-03 21:53] LABS: Cyclic Citrull Pep IgG Unit <0.5 U/mL; Cyclic Citrullinated Pep IgG NEGATIVE (NEGATIVE)
[2021-05-04] MEDS: HEPARIN SODIUM,PORCINE/PF 5,000 UNIT/0.5 ML SYRINGE SQ SCH ×3 (05:37→20:17)
[2021-05-04] MEDS: SODIUM CHLORIDE 0.9% 1,000 ML IV SCH ×2 (05:38→17:36)
[2021-05-04] MEDS: PANTOPRAZOLE 40 MG TABLET PO SCH (06:46)
[2021-05-04] MEDS ORDERED: CYANOCOBALAMIN 1,000 MCG/ML 1 ML VIAL IM ONE (09:19)
[2021-05-04] MEDS: SODIUM BICARBONATE TAB 650 MG TAB PO SCH ×2 (09:20→20:17)
[2021-05-04] MEDS: ARTIFICIAL TEARS-HYPROMELLOSE DROPS 15 ML BTL BOTH EYES SCH ×3 (09:20→20:17)
[2021-05-04] MEDS: VANCOMYCIN 125 MG CAPSULE PO SCH ×4 (09:20→20:18)
[2021-05-04] MEDS: ASPIRIN 81 MG PO SCH (09:20)
[2021-05-04] MEDS: DORZOLAMIDE-TIMOLOL 2.23%/0.68 10ML BTL BOTH EYES SCH ×2 (09:21→20:17)
[2021-05-04] MEDS: BRIMONIDINE TARTRATE 0.2% DROPS 5 ML BTL BOTH EYES SCH ×2 (09:21→20:17)
[2021-05-04 10:00] LABS: African American GFR (CKD) >90 (>60 ml/min/1.73 sqM); Anion Gap 6 mmol/L; Blood Urea Nitrogen 8 mg/dL (9-20); Calcium 7.9 mg/dL (8.4-10.2); Carbon Dioxide 22 mmol/L (22-30); Chloride 111 mmol/L (98-107); Creatine Kinase 243 U/L (55-170); Glucose 104 mg/dL (74-99); Non-African American GFR(CKD) 90 (>60 ml/min/1.73 sqM); Potassium 3.2 mmol/L (3.5-5.1); Sodium 139 mmol/L (137-145)
--- NOTE | 2021-05-04 11:39 | CDI ---
Documentation Clarification Form Date: 05/04/2021 11:19:26 AM From: Linette Knott RN, CCDS Admit Date: 05/01/2021 08:16:00 PM Patient Name: Yousuf Cisneros Visit Number: [id number] Discharge Date: ATTENTION: The Clinical Documentation Specialists (CDI) and [facility] Coding Staff appreciate your assistance in clarifying documentation. Please respond to the clarification below the line at the bottom and electronically sign. The CDI & [facility] Coding staff will review the response and follow-up if needed. Please note: Queries are made part of the Legal Health Record. If you have any questions, please contact the author of this message via ITS. Dr. Agustin Lopez Rhabdomyolysis is documented in the emergency department assessment, H&P and subsequent progress notes. [Additional clarification regarding the type of rhabdomyolysis is requested. History/Risk Factors: Arthritis Clinical Indicators: 80-year-old male present to ED found by family on floor after fall. He was on floor approximately 14-15 hours. He had new weakness in the right arm with wrist drop due to neurapraxia likely positional from being on floor for 14 hours per ED assessment. 05/01 Vital sign: 128/98 101 18 102.1 05/01 WBC 10.3, Neutrophils 8.90, Lactic acid 2.3, 2.2; Creatine Kinase 2716, CK- MB 7.8, Troponin I 0.051, Covid -19 Not detected; C. Difficile-Positive. Treatment: .9 NS 1000 MLS X2 then @ 100 MLS/HR Monitor Labs: CBC, BUN, CR, Lytes, creatine kinase, CK-MB per orders Please clarify the type of rhabdomyolysis, if known: [x ] Traumatic rhabdomyolysis due to fall [ ] Traumatic rhabdomyolysis due to prolonged immobility [ ] Other, please specify [ ] Unable to Determine (Template Last Revised: October 2020) Patient fall off the bed could not stand up stayed on the floor for 1415 hours until the family member came and helped. It is also on the admission note as well MTDD
--- NOTE | 2021-05-04 12:57 | P.PN ---
Subjective Progress Note Date: 05/04/21 (Rhabdomyolysis, fall off the bed, prolongated time on the floor, vitamin D deficiency, CVA with the right hemiparesis and facial drooping and speech disturbance) Prognosis note Dictation by Dr. Naranjo date of service 05/04/2021. Speech pathology did evaluate the patient today Mrs. [place] speech pathologist vinod parikh evaluation was nondiagnostic and she requesting a modified barium swallow and we agreed with that with a history of intermittent choking. Today he was complaining of the food doesn't taste well and he like this to, also he has C. difficile colitis with distention of the abdomen tympanitic on percussion and still have diarrhea, we consulted Dr. Daniel infectious disease and patient already on vancomycin orally. We'll consult dietitian for evaluation and treatment with the adjusting the diet Obtain abdominal x-ray with the tympanitic percussion and still diarrhea. 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 Patient had rhabdomyolysis with dehydration improving the serum creatine kinase today level 243 still but mildly elevated, potassium 3.2 with the hydration, vitamin B12 262 with vitamin B12 deficiency, plan to have vitamin B12 1000 g IM today and once a week subsequently. Positive stool for occult blood when association with C. difficile colitis. Rheumatoid factor 9 which is normal, CCP negative. Serum folate 15 which is normal, renal function stable blood glucose normal and hemoglobin A1c 5 with no evidence of diabetes mellitus. On the physical exam: Patient is conscious alert oriented able to communicate as a slurred speech able to eat but the food doesn't palatable to him and he need easy to swallow with a soft diet and will plan for dietitian consultation. HEENT: No changes pupil is on equal, oropharynx natural teeth and the modified barium swallow was planned for tomorrow a.m. I did speak with the speech pathologist Neck was supple no JVD no thyromegaly no lymphadenopathy trachea midline, carotid duplex scan was negative no hemodynamic significant stenosis. Chest clear to auscultation and percussion. Heart regular sinus rhythm no dysrhythmia. GI: Tympanitic abdomen with discomfort on percussion and decreased bowel sounds and diarrhea associated with C. difficile colitis currently on vancomycin oral and we will be obtaining x-ray of the abdomen today. And the speech pathology will do modified barium swallow tomorrow. Genitourinary: Patient is incontinent to urine and stools. Extremities no edema. Pulses however is 1+ over 2+, right hip prosthesis, right lower extremity longer than the left lower extremities, currently he is on the rehab with the plan for fpc prolonged rehabilitation.. Neurological evaluation: Seen by Dr. Reyes neurologist with the underlying suspicious of the left hemispheric CVA by MRI as mentioned in the report with the right facial drooping slurred speech and weakness in the right side. The right hand and the right breast with radial nerve compression was prolonged compression on the floor when he fell down for prolongated. 14-15 hour. He his daughter. Assessment: We requested vitamin D is not available yet with the low calcium 7.9. Modified barium swallow tomorrow. Vitamin B12 deficiency and Dr. Reyes given injection of vitamin B12 1000 g IM however this will need to be repeated at the next fpc once a week for 4 weeks and recheck vitamin B12 as well as switching to oral sublingual. Dr. Daniel infectious disease has been consulted because of the C. difficile colitis and infection. We'll follow his recommendation as well. Continue hydration with the rhabdomyolysis. Vital sign is stable. Plan continue the IV hydration for rhabdomyolysis, wait for modified barium swallow tomorrow, that is hypokalemia and we will recommend potassium supplementation as well and probably obtain ionized calcium for hypocalcemia. Plan for transfer to fpc when the bed is available in 48 hour period Objective - Vital Signs Vital signs: Vital Signs Temp 97.7 F 05/04/21 08:00 Pulse 82 05/04/21 08:00 Resp 16 05/04/21 08:00 BP 116/55 05/04/21 08:00 Pulse Ox 96 05/04/21 08:00 Intake & Output 05/03/21 05/04/21 05/04/21 18:59 06:59 18:59 Intake Total 358 180 Output Total 1 1 Balance 357 179 Weight 84 kg Intake: Oral 358 180 Output: Stool 1 1 Other: Voiding Method Diaper Diaper Diaper Incontinent Incontinent Incontinent # Voids 2 1 # Bowel Movements 2 2 1 - Labs CBC & Chem 7: 05/03/21 07:40 05/04/21 08:23 Labs: Abnormal Lab Results - Last 24 Hours (Table) 05/03/21 05/04/21 Range/Units 13:50 08:23 ESR 27 H (0-15) mm/hr Potassium 3.2 L (3.5-5.1) mmol/L Chloride 111 H (98-107) mmol/L BUN 8 L (9-20) mg/dL Glucose 104 H (74-99) mg/dL Calcium 7.9 L (8.4-10.2) mg/dL Creatine Kinase 243 H (55-170) U/L
[2021-05-04 13:18] LABS: Basophils % (A) 0 %; Eosinophils # (A) 0.2 k/uL (0-0.7); Eosinophils % (A) 2 %; HCT 41.5 % (39.0-53.0); Lymphocytes # (A) 1.6 k/uL (1.0-4.8); Lymphocytes % (A) 18 %; MCH 29.7 pg (25.0-35.0); MCHC 31.4 g/dL (31.0-37.0); MCV 94.5 fL (80.0-100.0); Mean Platelet Volume 7.4; Monocytes # (A) 0.8 k/uL (0-1.0); Monocytes % (A) 9 %; Neutrophils # (A) 6.2 k/uL (1.3-7.7); Neutrophils % (A) 68 %; Platelet Count 248 k/uL (150-450); RBC 4.39 m/uL (4.30-5.90); RDW 12.8 % (11.5-15.5); WBC 9.2 k/uL (3.8-10.6)
--- NOTE | 2021-05-04 13:42 | XR ---
EXAMINATION TYPE: XR abdomen complete w decub DATE OF EXAM: 05/04/2021 COMPARISON: NONE HISTORY: Pain TECHNIQUE: Supine, upright, and left side down lateral decubitus views of the abdomen are obtained. FINDINGS: Multiple dilated bowel loops with air-fluid levels. Hypertrophic and degenerative change sp ine. Linear changes involving the lung bases and surgical clips in right upper quadrant. Arthropathy of the left hip and postsurgical change right hip. Calcifications in the pelvis likely vascular. Diff use osteopenia. IMPRESSION: Nonspecific gas pattern correlate for distal obstruction versus ileus.
[2021-05-04 15:15] VITALS: BMI 27.3
[2021-05-04] MEDS: POTASSIUM CHLORIDE 10 MEQ in WATER FOR INJECTION 1 100ML.BAG IVPB SCH ×4 (17:33→21:31)
--- NOTE | 2021-05-04 22:15 | P.PN ---
Subjective Progress Note Date: 05/04/21 Patient was seen for a follow-up. Patient offers no new complaints. Patient had low-grade fever today. Patient has been diagnosed with C. difficile colitis. He is on oral vancomycin. Objective - Vital Signs Vital signs: Vital Signs Temp 98.2 F 05/04/21 16:00 Pulse 94 05/04/21 16:00 Resp 18 05/04/21 16:00 BP 134/60 05/04/21 16:00 Pulse Ox 95 05/04/21 16:00 Intake & Output 05/04/21 05/04/21 05/05/21 06:59 18:59 06:59 Intake Total 1018 Output Total 2 Balance 1016 Weight 84 kg 84 kg Intake: Oral 1018 Output: Stool 2 Other: Voiding Method Diaper Diaper Incontinent Incontinent # Voids 1 1 # Bowel Movements 2 3 - Exam Deferred. Mentation is normal. He is hard of hearing. - Labs CBC & Chem 7: 05/04/21 13:01 05/04/21 08:23 Labs: Abnormal Lab Results - Last 24 Hours (Table) 05/04/21 Range/Units 08:23 Potassium 3.2 L (3.5-5.1) mmol/L Chloride 111 H (98-107) mmol/L BUN 8 L (9-20) mg/dL Glucose 104 H (74-99) mg/dL Calcium 7.9 L (8.4-10.2) mg/dL Creatine Kinase 243 H (55-170) U/L Vitamin D 25-Hydroxy 26.4 L (30.0-100.0) ng/mL Assessment and Plan Assessment: * Status post fall by sliding off the bed, and laying on the floor for about 12 hours. Patient not able to get up because of generalized weakness, probably related to diarrhea from C. difficile and his underlying severe osteoarthritis of upper extremities. * New onset right wrist drop, likely due to right radial nerve compression from prolonged laying on the floor. * Previous history of possible CVA in the past, with mild residual dysarthria and right facial asymmetry. MRI of the brain revealed no acute stroke. * Mild B12 deficiency. * C. difficile colitis * Osteoarthritis * Minimally elevated ALT. * Hard of hearing. Plan: * Patient has developed right wrist drop, probably due to right radial nerve palsy from laying on the right arm for prolonged period of time. He. Hopefully will improve with time. Avoid laying on the right side, to prevent further compression of the right radial nerve. * May need outpatient EMG and nerve conduction studies of right upper extremity as outpatient, if symptoms persist beyond 2 weeks. * Patient is being treated for C. difficile colitis. * MRI of the brain revealed focal area of encephalomalacia along the basal ganglia on the right is again noted consistent with remote infarct. No acute process. Age-related changes of atrophy and chronic small vessel ischemia. No CP angle mass. * Carotid Doppler revealed no hemodynamic significant stenosis of proximal ICA. Antegrade flow in both vertebral arteries. * Continue aspirin 81 mg daily for stroke prevention. * Lipid panel with cholesterol 134, LDL 77, HDL 41 and triglycerides 77. No indication for statins. * B12 262, folate 15.0, MMA and B6 pending, ESR 27, RA negative, CCP negative and hemoglobin A1c 5.0. We will start B12 replacement. * PT and OT.
--- NOTE | 2021-05-04 23:01 | P.CONS ---
History of Present Illness - Reason for Consult Consult date: 05/04/21 C. diff colitis Requesting physician: Agustin Lopez - Chief Complaint Weakness and was found on ground x 1 day - History of Present Illness Patient is a 80-year-old male with a past medical history significant for CVA, patient was brought to [facility] ER on 05/01/2021 after pending the patient did fell down and the night before while trying to get his a rthritis medication and later on the floor. The patient was found by the family the next day or 2 without the patient was having more weakness and concern for a new stroke, patient subsequently has been admitted to hospital and stroke workup is in progress and the patient is being seen by neurology MRI did shows evidence of previous infarct, patient did have a fever of 120 Fahrenheit on presentation to the hospital, patient did have a UA that was negative chest x-ray with evidence of any pneumonia, patient did have diarrhea stool for C. diff was sent which came back positive for C. diff toxin, and patient was started on vancomycin and infectious disease was consulted to possibly for further management, at the time of my evaluation this morning the patient is pleasantly confused and elevated good historian, when asked specifically for home therapy went to the bathroom he was unable to answer no vomiting has been reported and the patient when asked specific denies having abdominal pain no chest pain shortness of breath or cough overall he still remains to be elevated as mostly information has been obtained from review the chart Review of Systems Positive points has been mentioned in HPI complete review could not be obtained because of his underlying mental status Past Medical History Past Medical History: Eye Disorder, Osteoarthritis (OA) Additional Past Medical History / Comment(s): glaucoma, History of Any Multi-Drug Resistant Organisms: C-DIFF Year Discovered:: 05/02/2021 MDRO Source:: Stool Past Surgical History: Cholecystectomy, Joint Replacement Additional Past Surgical History / Comment(s): right hip replaced, cataract surg. Past Anesthesia/Blood Transfusion Reactions: No Reported Reaction Smoking Status: Never smoker - Past Family History Mother Family Medical History: No Reported History Father Family Medical History: No Reported History Medications and Allergies Home Medications Medication Instructions Recorded Confirmed Type Ibuprofen [Advil] 200 mg PO DAILY 05/01/21 05/01/21 History Timolol/Brimonidin/Dorzolam/Pf 2 drop BOTH EYES BID 05/02/21 05/03/21 History [Timolol 0.5%/Brim 0.15%/Dorzolam 2% Ophth Soln] Artificial Tears-Hypromellose 1 drops BOTH EYES TID 05/03/21 05/03/21 History [Artificial Tear Drops] Allergies Allergy/AdvReac Type Severity Reaction Status Date / Time No Known Allergies Allergy Verified 05/01/21 19:14 Physical Exam Vitals: Vital Signs Temp Pulse Resp BP Pulse Ox 05/04/21 04:00 98.1 F 78 18 148/75 92 L 05/04/21 02:00 75 18 05/03/21 23:56 98.2 F 75 18 129/60 96 05/03/21 20:00 98.4 F 82 18 118/59 95 05/03/21 16:00 98.2 F 94 18 134/60 95 05/03/21 12:00 90 18 132/63 96 Intake and Output 05/03/21 05/04/21 05/04/21 22:59 06:59 14:59 Intake Total 180 Balance 180 Intake: Oral 180 Other: Voiding Method Diaper Diaper Incontinent Incontinent # Voids 1 # Bowel Movements 2 Weight 84 kg GENERAL DESCRIPTION: Elderly male lying in bed, no distress. No tachypnea or accessory muscle of respiration use. HEENT: Shows Pallor , no scleral icterus. Oral mucous membrane is dry. No pharyngeal erythema or thrush NECK: Trachea central, no thyromegaly. LUNGS: Unlabored breathing. Clear to auscultation anteriorly. No wheeze or crackle. HEART: S1, S2, regular rate and rhythm. No loud murmur ABDOMEN: Soft, no tenderness , guarding or rigidity, no organomegaly EXTREMITIES: No edema of feet. SKIN: No rash, no masses palpable. NEUROLOGICAL: The patient is awake, alert, oriented x1, mood and affect normal. Results CBC & Chem 7: 05/04/21 13:01 05/04/21 08:23 Labs: Abnormal Lab Results - Last 24 Hours (Table) 05/03/21 05/04/21 Range/Units 13:50 08:23 ESR 27 H (0-15) mm/hr Potassium 3.2 L (3.5-5.1) mmol/L Chloride 111 H (98-107) mmol/L BUN 8 L (9-20) mg/dL Glucose 104 H (74-99) mg/dL Calcium 7.9 L (8.4-10.2) mg/dL Creatine Kinase 243 H (55-170) U/L Assessment and Plan Assessment: 1-patient presented to the hospital after the patient was noticed to be on the floor after fall the night before with evidence of rhabdomyolysis patient did have a fever and diarrhea now with a stool for C. diff positive likely symptomatic C. diff colitis as there are no other FOCUS of infection (1) C. difficile colitis Current Visit: Yes Status: Acute Code(s): A04.72 - ENTEROCOLITIS D/T CLOSTRIDIUM DIFFICILE, NOT SPCF RECUR SNOMED Code(s): 393460382 Plan: 1-vancomycin 125 mg by mouth every 6 hours 10 days 2-we'll add Questran if the diarrhea persist 3-contact isolation We will follow on clinical condition and cultures to further adjust medication if needed Thank you for this consultation will follow this patient with you Time with Patient: Greater than 30
[2021-05-05] MEDS: HEPARIN SODIUM,PORCINE/PF 5,000 UNIT/0.5 ML SYRINGE SQ SCH ×3 (04:32→20:13)
[2021-05-05] MEDS: SODIUM CHLORIDE 0.9% 1,000 ML IV SCH ×3 (04:33→20:13)
[2021-05-05] MEDS: PANTOPRAZOLE 40 MG TABLET PO SCH (06:42)
[2021-05-05 08:00] LABS: African American GFR (CKD) >90 (>60 ml/min/1.73 sqM); Anion Gap 5 mmol/L; Blood Urea Nitrogen 4 mg/dL (9-20); Calcium 7.9 mg/dL (8.4-10.2); Carbon Dioxide 22 mmol/L (22-30); Chloride 113 mmol/L (98-107); Glucose 94 mg/dL (74-99); Non-African American GFR(CKD) >90 (>60 ml/min/1.73 sqM); Potassium 3.4 mmol/L (3.5-5.1); Sodium 140 mmol/L (137-145)
[2021-05-05] MEDS: VANCOMYCIN 125 MG CAPSULE PO SCH ×4 (08:20→20:13)
[2021-05-05] MEDS: SODIUM BICARBONATE TAB 650 MG TAB PO SCH ×2 (08:21→20:13)
[2021-05-05] MEDS: ASPIRIN 81 MG PO SCH (08:21)
[2021-05-05] MEDS: ARTIFICIAL TEARS-HYPROMELLOSE DROPS 15 ML BTL BOTH EYES SCH ×3 (08:22→20:14)
[2021-05-05] MEDS: DORZOLAMIDE-TIMOLOL 2.23%/0.68 10ML BTL BOTH EYES SCH (08:22)
[2021-05-05] MEDS: BRIMONIDINE TARTRATE 0.2% DROPS 5 ML BTL BOTH EYES SCH ×2 (08:37→20:14)
[2021-05-05] MEDS: POTASSIUM CHLORIDE ER 20 MEQ TAB.ER PO SCH ×2 (12:07→20:13)
[2021-05-05] MEDS: CHOLECALCIFEROL 25 MCG (1000 IU) TABLET PO SCH (12:07)
--- NOTE | 2021-05-05 13:03 | P.PN ---
Subjective Progress Note Date: 05/05/21 (C. difficile enteritis with colitis. Rhabdomyolysis improving, left atmospheric old CVA with right hemiparesis involving fascial. Right wrist radial nerve compression.) Progress note dictation by Dr. Lopez Date of service 05/05/2021. Discussed with his daughter the patient and the nurse JUSTIN Singh. We requested the check with [facility] on in regards acceptance of the patient with the C. difficile in [place] treatment "treatment needed for 10 days total, " Also waiting for Dr. De León the surgeon in regard of the metastatic abdomen with distention questionable ileus versus obstruction and hopefully he will see him today. In regards of rhabdomyolysis has been significant improvement and it will continue to improve subsequently as outpatient. Speech pathologist did cancel his MBS test due to effect of the distention of the abdomen and clear liquid diet, however these tests can be done and later date as he is able to eat and swallow in the hospital without choking. Patient still have diarrhea and loose bowel as his daughter and the patient stated yesterday. With no significant improvement yet but still is abdomen is tympanitic on percussion with discomfort. On examination today, patient is conscious alert oriented able to communicate his daughter at bedside trying to help him and feed him. Also his nurse in in the room with the discussion. Head was normocephalic and atraumatic, pupil is on equal, bilateral cataract surgery in the past underlying glaucoma and he has drops. Right facial asymmetry with the loss of nasolabial fold and deviation of the angle of the mouth. And slurred his speech. Neck was supple no JVD no thyromegaly no lymphadenopathy trachea midline. Chest is clear to auscultation percussion no wheezes no rhonchi's. Heart regular sinus rhythm no dysrhythmia. No chest pain Abdomen: Tympanitic on percussion vague discomfort still diarrhea positive blood probably associated with the enterocolitis from the C. difficile with normal hemoglobin Extremities right hip arthroplasty, right lower extremities longer than the left, Neurological examination no acute changes. Assessment currently we are waiting for the need the general surgeon Dr. De León for evaluation if there is any further treatment needed #2 also clarification with the [facility] and the accepting the patient with C. difficile before completing the treatment for 10 days. Patient did not have any added Questran so far, was suggested by Dr. Daniel infectious disease. Able to eat without choking and modified barium swallow has been canceled by the speech pathology. 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 Rhabdomyolysis improving significantly. With hydration. Lactic acidosis is resolved Patient living alone need for further rehabilitation and the plan for [facility] when bed is available and acceptance after surgical evaluation. Plan: We'll continue current medication and plan Discussed with patient and his daughter and his nurse. Electrolyte in a.m. to assess his potassium with the underlying hypokalemia Started on K-Dur 20 milliequivalent twice a day added to the protocol due to loss of potassium with the diarrhea and still low potassium. Objective - Vital Signs Vital signs: Vital Signs Temp 97.9 F 05/05/21 12:46 Pulse 83 05/05/21 12:46 Resp 18 05/05/21 12:46 BP 145/71 05/05/21 12:46 Pulse Ox 98 05/05/21 12:46 Intake & Output 05/04/21 05/05/21 05/05/21 18:59 06:59 18:59 Intake Total 1018 Output Total 2 Balance 1016 Weight 84 kg 87 kg Intake: Oral 1018 Output: Stool 2 Other: Voiding Method Diaper Diaper Diaper Incontinent Incontinent Incontinent # Voids 1 1 1 # Bowel Movements 3 - Labs CBC & Chem 7: 05/04/21 13:01 05/05/21 07:18 Labs: Abnormal Lab Results - Last 24 Hours (Table) 05/01/21 05/04/21 05/05/21 Range/Units 21:13 08:23 07:18 Potassium 3.4 L (3.5-5.1) mmol/L Chloride 113 H (98-107) mmol/L BUN 4 L (9-20) mg/dL Creatinine 0.64 L (0.66-1.25) mg/dL Calcium 7.9 L (8.4-10.2) mg/dL Myoglobin 1452 H (28-72) ng/mL Vitamin D 25-Hydroxy 26.4 L (30.0-100.0) ng/mL
--- NOTE | 2021-05-05 14:36 | P.GSCN ---
History of Present Illness Consult date: 05/05/21 History of present illness: This is a 80-year-old male presents to the hospital with C. difficile colitis. Is having multiple bowel movements a day 4-5. Already this morning. He denies any nausea vomiting. He denies any abdominal pain at this time. He is passing gas. He is tolerating a clear liquid diet. Past Medical History Past Medical History: Eye Disorder, Osteoarthritis (OA) Additional Past Medical History / Comment(s): glaucoma, History of Any Multi-Drug Resistant Organisms: C-DIFF Year Discovered:: 05/02/2021 MDRO Source:: Stool Past Surgical History: Cholecystectomy, Joint Replacement Additional Past Surgical History / Comment(s): right hip replaced, cataract surg. Past Anesthesia/Blood Transfusion Reactions: No Reported Reaction Smoking Status: Never smoker - Past Family History Mother Family Medical History: No Reported History Father Family Medical History: No Reported History Medications and Allergies Home Medications Medication Instructions Recorded Confirmed Type Ibuprofen [Advil] 200 mg PO DAILY 05/01/21 05/01/21 History Timolol/Brimonidin/Dorzolam/Pf 2 drop BOTH EYES BID 05/02/21 05/03/21 History [Timolol 0.5%/Brim 0.15%/Dorzolam 2% Ophth Soln] Artificial Tears-Hypromellose 1 drops BOTH EYES TID 05/03/21 05/03/21 History [Artificial Tear Drops] Allergies Allergy/AdvReac Type Severity Reaction Status Date / Time No Known Allergies Allergy Verified 05/01/21 19:14 Surgical - Exam Osteopathic Statement: *. No significant issues noted on an osteopathic structural exam other than those noted in the History and Physical/Consult. Vital Signs Temp Pulse Resp BP Pulse Ox 99.9 F H 94 17 157/79 96 05/01/21 17:08 05/01/21 17:08 05/01/21 17:08 05/01/21 17:08 05/01/21 17:08 - General well developed, well nourished, no distress - Neck trachea midline - Respiratory normal expansion, normal respiratory effort - Cardiovascular Rhythm: regular - Abdomen distended Abdomen: soft, non tender - Neurologic normal coordination, normal sensation - Psychiatric oriented to time, oriented to person, oriented to place Results - Labs 05/04/21 13:05/05/21 07:18 Abnormal Lab Results - Last 24 Hours (Table) 05/01/21 05/03/21 05/04/21 Range/Units 21:13 13:50 08:23 Potassium (3.5-5.1) mmol/L Chloride (98-107) mmol/L BUN (9-20) mg/dL Creatinine (0.66-1.25) mg/dL Calcium (8.4-10.2) mg/dL Myoglobin 1452 H (28-72) ng/mL Vitamin B6 3 L (5-50) ug/L Vitamin D 25-Hydroxy 26.4 L (30.0-100.0) ng/mL 05/05/21 Range/Units 07:18 Potassium 3.4 L (3.5-5.1) mmol/L Chloride 113 H (98-107) mmol/L BUN 4 L (9-20) mg/dL Creatinine 0.64 L (0.66-1.25) mg/dL Calcium 7.9 L (8.4-10.2) mg/dL Myoglobin (28-72) ng/mL Vitamin B6 (5-50) ug/L Vitamin D 25-Hydroxy (30.0-100.0) ng/mL Diabetes panel 05/05/21 Range/Units 07:18 Sodium 140 (137-145) mmol/L Potassium 3.4 L (3.5-5.1) mmol/L Chloride 113 H (98-107) mmol/L Carbon Dioxide 22 (22-30) mmol/L BUN 4 L (9-20) mg/dL Creatinine 0.64 L (0.66-1.25) mg/dL Glucose 94 (74-99) mg/dL Calcium 7.9 L (8.4-10.2) mg/dL Calcium panel 05/05/21 Range/Units 07:18 Calcium 7.9 L (8.4-10.2) mg/dL Pituitary panel 05/05/21 Range/Units 07:18 Sodium 140 (137-145) mmol/L Potassium 3.4 L (3.5-5.1) mmol/L Chloride 113 H (98-107) mmol/L Carbon Dioxide 22 (22-30) mmol/L BUN 4 L (9-20) mg/dL Creatinine 0.64 L (0.66-1.25) mg/dL Glucose 94 (74-99) mg/dL Calcium 7.9 L (8.4-10.2) mg/dL Adrenal panel 05/05/21 Range/Units 07:18 Sodium 140 (137-145) mmol/L Potassium 3.4 L (3.5-5.1) mmol/L Chloride 113 H (98-107) mmol/L Carbon Dioxide 22 (22-30) mmol/L BUN 4 L (9-20) mg/dL Creatinine 0.64 L (0.66-1.25) mg/dL Glucose 94 (74-99) mg/dL Calcium 7.9 L (8.4-10.2) mg/dL Assessment and Plan Assessment: Cdiff colitis Plan: Patient is having BM and passing gas. No Nausea or vomiting or clinical signs of obstruction. Continue ID recs for antibiotics for treatment of Cdiff. Distention likely secondary to Cdiff. No plans for acute general surgical intervention
--- NOTE | 2021-05-05 15:05 | P.PN ---
Subjective Progress Note Date: 05/05/21 Patient was seen for a follow-up. Patient offers no new complaints. Patient is laying comfortably in the bed. Patient has been diagnosed with C. difficile colitis. He is on oral vancomycin. Objective - Vital Signs Vital signs: Vital Signs Temp 97.9 F 05/05/21 12:46 Pulse 83 05/05/21 12:46 Resp 18 05/05/21 12:46 BP 145/71 05/05/21 12:46 Pulse Ox 98 05/05/21 12:46 Intake & Output 05/04/21 05/05/21 05/05/21 18:59 06:59 18:59 Intake Total 1018 Output Total 2 Balance 1016 Weight 84 kg 87 kg Intake: Oral 1018 Output: Stool 2 Other: Voiding Method Diaper Diaper Diaper Incontinent Incontinent Incontinent # Voids 1 1 1 # Bowel Movements 3 - Exam Deferred. Mentation is normal. He is hard of hearing. Patient continues to have slurred speech, right facial droop. Right wrist drop, has not changed. - Labs CBC & Chem 7: 05/04/21 13:01 05/06/21 09:19 Labs: Abnormal Lab Results - Last 24 Hours (Table) 05/01/21 05/03/21 05/04/21 Range/Units 21:13 13:50 08:23 Potassium (3.5-5.1) mmol/L Chloride (98-107) mmol/L BUN (9-20) mg/dL Creatinine (0.66-1.25) mg/dL Calcium (8.4-10.2) mg/dL Myoglobin 1452 H (28-72) ng/mL Vitamin B6 3 L (5-50) ug/L Vitamin D 25-Hydroxy 26.4 L (30.0-100.0) ng/mL 05/05/21 Range/Units 07:18 Potassium 3.4 L (3.5-5.1) mmol/L Chloride 113 H (98-107) mmol/L BUN 4 L (9-20) mg/dL Creatinine 0.64 L (0.66-1.25) mg/dL Calcium 7.9 L (8.4-10.2) mg/dL Myoglobin (28-72) ng/mL Vitamin B6 (5-50) ug/L Vitamin D 25-Hydroxy (30.0-100.0) ng/mL Assessment and Plan Assessment: * Status post fall by sliding off the bed, and laying on the floor for about 12 hours. Patient not able to get up because of generalized weakness, probably related to diarrhea from C. difficile and his underlying severe osteoarthritis of upper extremities. * New onset right wrist drop, likely due to right radial nerve compression from prolonged laying on the floor. * Previous history of possible CVA in the past, with mild residual dysarthria and right facial asymmetry. MRI of the brain revealed no acute stroke. * Mild B12 deficiency. * Vitamin B6 deficiency * C. difficile colitis * Osteoarthritis * Minimally elevated ALT. * Hard of hearing. Plan: * Patient has developed right wrist drop, probably due to right radial nerve palsy from laying on the right arm for prolonged period of time. He. Hopefully will improve with time. Avoid laying on the right side, to prevent further compression of the right radial nerve. * May need outpatient EMG and nerve conduction studies of right upper extremity as outpatient, if symptoms persist beyond 2 weeks. * Patient is being treated for C. difficile colitis. * MRI of the brain revealed focal area of encephalomalacia along the basal ganglia on the right is again noted consistent with remote infarct. No acute process. Age-related changes of atrophy and chronic small vessel ischemia. No CP angle mass. * Carotid Doppler revealed no hemodynamic significant stenosis of proximal ICA. Antegrade flow in both vertebral arteries. * Continue aspirin 81 mg daily for stroke prevention. * Lipid panel with cholesterol 134, LDL 77, HDL 41 and triglycerides 77. No indication for statins. * B12 262, folate 15.0, MMA 0.29 normal. B6 3 (5-50), ESR 27, RA negative, CCP negative and hemoglobin A1c 5.0. We will start B12 and vitamin B6 replacement. * PT and OT.
--- NOTE | 2021-05-05 15:40 | PN ---
PROGRESS NOTE DATE OF SERVICE: 05/05/2021 REASON FOR FOLLOWUP: C difficile colitis. INTERVAL HISTORY: The patient is afebrile. He is breathing comfortably. He seems to be slightly more awake and alert. He is still complaining of diarrhea; unable to tell me how many times he went to the bathroom. No chest pain occasional cough. PHYSICAL EXAMINATION: Blood pressure 145/71 with a pulse of 83, temperature 97.9. He is 98% on room air. GENERAL DESCRIPTION: General description is an elderly male lying in bed in no distress. RESPIRATORY SYSTEM: Unlabored breathing. Clear to auscultation anteriorly. HEART: S1, S2. Regular rate and rhythm. ABDOMEN: Soft. No tenderness. LABS: Hemoglobin is 13, white count 9.2. BUN , creatinine 0.64. DIAGNOSTIC IMPRESSION AND PLAN: Patient with Clostridium difficile colitis, on oral vancomycin. Still complaining of diarrhea. Will add Questran for symptomatic relief and continue supportive care. Continue with oral vancomycin. MMODL / IJN: [id number] /
[2021-05-05] MEDS: CYANOCOBALAMIN 1,000 MCG/ML 1 ML VIAL IM SCH (16:01)
[2021-05-05] MEDS: PYRIDOXINE 50 MG TAB PO SCH ×2 (16:02→20:13)
[2021-05-05] MEDS: CHOLESTYRAMINE (WITH SUGAR) 4 GM PACKET PO SCH (18:01)
[2021-05-06] MEDS: SODIUM CHLORIDE 0.9% 1,000 ML IV SCH (04:38)
[2021-05-06] MEDS: HEPARIN SODIUM,PORCINE/PF 5,000 UNIT/0.5 ML SYRINGE SQ SCH ×2 (04:38→11:29)
[2021-05-06] MEDS: PANTOPRAZOLE 40 MG TABLET PO SCH (06:19)
[2021-05-06] MEDS: VANCOMYCIN 125 MG CAPSULE PO SCH ×2 (08:58→11:29)
[2021-05-06] MEDS: CHOLESTYRAMINE (WITH SUGAR) 4 GM PACKET PO SCH (08:58)
[2021-05-06] MEDS: POTASSIUM CHLORIDE ER 20 MEQ TAB.ER PO SCH (08:58)
[2021-05-06] MEDS: ARTIFICIAL TEARS-HYPROMELLOSE DROPS 15 ML BTL BOTH EYES SCH ×2 (08:59→17:01)
[2021-05-06] MEDS: PYRIDOXINE 50 MG TAB PO SCH (08:59)
[2021-05-06] MEDS: CHOLECALCIFEROL 25 MCG (1000 IU) TABLET PO SCH (08:59)
[2021-05-06] MEDS: ASPIRIN 81 MG PO SCH (08:59)
[2021-05-06] MEDS: BRIMONIDINE TARTRATE 0.2% DROPS 5 ML BTL BOTH EYES SCH (08:59)
[2021-05-06] MEDS: SODIUM BICARBONATE TAB 650 MG TAB PO SCH (09:00)
[2021-05-06] MEDS: CYANOCOBALAMIN 1,000 MCG/ML 1 ML VIAL IM SCH (09:00)
[2021-05-06] MEDS: DORZOLAMIDE-TIMOLOL 2.23%/0.68 10ML BTL BOTH EYES SCH (09:00)
[2021-05-06 10:10] LABS: Potassium 3.8 mmol/L (3.5-5.1)
--- NOTE | 2021-05-06 13:00 | P.DS ---
Providers Date of admission: 05/01/21 20:16 Expected date of discharge: 05/06/21 Attending physician: Agustin Lopez Consults: 05/03/21 06:41 Consult Physician Urgent Consulting Provider: Shiv Drake Consult Reason/Comments: r/o cva Do you want consulting provider notified?: Yes 05/03/21 15:27 Consult Physician Routine Consulting Provider: Lissa Daniel Consult Reason/Comments: Cdiff on PO vanco Do you want consulting provider notified?: Yes 05/04/21 14:07 Consult Physician Routine Consulting Provider: Rey Diggs Consult Reason/Comments: obstruction vs ileas/ Occult positive stool Do you want consulting provider notified?: Yes Primary care physician: Agustin Lopez Discharge summary date of service 05/06/[address] Lopez Disposition Continue rehabilitation and admission to [facility] for further evaluation and treatment. Final diagnoses: #1 rhabdomyolysis resulted from falling off the bed laying down on the floor for 14-15 hours till his daughter came and checked on him. #2 severe C. difficile with enterocolitis C. difficile infection associated with electrolyte imbalance and hypokalemia. #3 remote left CVA and right facial drooping, slurred speech, occasional dysphagia with the bedside speech pathology evaluation was negative. Prior to discharge speech pathology will do modified barium swallow for evaluation prior to discharge to [facility]. For jail rehabilitation. #4 bilateral cataract surgery in the past with the presence of glaucoma treated by Dr. Dario peralta ophthalmologists. #5 urinary incontinence, stool incontinent, #6 patient lives alone with need for more than 20 pupil 4 his ADLs. #7 vitamin B12 deficiency #8 vitamin B6 deficiency. #9 hypocalcemia associated with vitamin D deficiency, ionized calcium was normal. #10 mild elevation of d-dimer, ultrasound of the lower extremities negative for DVT. #11 right radial nerve in the rest compression with laying down on the floor causing decreased function and recommendation from neurology Dr. Odonnell to see as outpatient urologist Procedure done during his hospitalization including the emergency room. Computed tomography scan of the brain Consultation with neurology Dr. Reyes Consultation with general surgeon Dr. anne. Ultrasound of the lower extremities negative for DVT Modified barium swallow with a history of stroke and remote history of choking result is pending. Chest x-ray negative Abdominal x-ray with distention, seen by Dr. anne the surgeon, secondary symptoms of C. difficile and colitis and to continue the current antibiotic. Carotid testing ordered by Dr. Reyes was negative. With no hemodynamic significant stenosis and the EKG normal sinus rhythm and no evidence of congestive heart failure. Presentation to the emergency room Patient fell off the bed could not move or get up stayed on the floor for 14-15 hours. His previous physician Dr. Bates. in the ER patient and the family requested me to see the patient and to treat him. Elevated CPK need to be hydrated with the also extremity finger that he had probable a stroke considered as initially as an acute however the computed tomography scan was negative. Hospital course: Patient admitted and monitored serum creatine kinase, he had also peripheral edema, for further evaluation and testing to rule out DVT. With review of the laboratories for further electrolyte abnormalities and vitamin deficiency and hypokalemia, which she has been covered. And patient has been recovered and need for further rehab in [facility]. [id number] exam on discharge. Patient is going for MBS study for swallowing. Head was normocephalic and atraumatic, right pupil wider than the left pupil Oropharynx natural teeth able to eat and swallow, his right facial drooping and angle of the mouth pulled to the left side. And slurred speech. Had weakness also in the right-sided. Neck was supple no JVD no thyromegaly no lymphadenopathy, trachea midline Chest was clear to auscultation percussion Heart regular sinus rhythm no history of CT in the past or chest pain Abdomen: Mild distention distention with percussion positive bowel sounds and he has bowel movement however slowest due to the C. difficile colitis. Extremities: No edema, positive pulses bilateral, right lower leg is longer than the left lower leg, with the history of right hip prosthesis done in [place]. For further need of balancing of his left foot with the thick soles of the shoes and can be done as an rehab [facility] Neurologically patient no change in mental status and his neurological finding is stable need for further rehabilitation. Assessment and plan: Patient will have today MBS study followed by discharge to [facility] with the current medication. I did review the medication and no narcotic in it. We'll follow him as outpatient in the jail as he is a new patient to me. Patient Condition at Discharge: Serious Plan - Discharge Summary Discharge Rx Participant: Yes New Discharge Prescriptions: New Cyanocobalamin [Vitamin B-12 Injection] 1,000 mcg IM WEEKLY #20 ml Cholecalciferol [Vitamin D3 (25 Mcg = 1000 Iu)] 100 mcg PO DAILY #30 tablet Aspirin 81 mg PO DAILY tab Potassium Chloride ER [K-Dur 20] 20 meq PO BID #60 tablet Pantoprazole [Protonix] 40 mg PO AC-BRKFST #60 tab Cholestyramine (with Sugar) [Questran Packet] 4 gm PO BID@1000,1800 #20 packet Acetaminophen Tab [Tylenol] 650 mg PO Q6HR PRN tab PRN Reason: Mild Pain Or Fever > 100.5 Vancomycin 125 mg PO QID 10 Days #40 Pyridoxine [Vitamin B-6] 50 mg PO BID #60 tab Continue Timolol/Brimonidin/Dorzolam/Pf [Timolol 0.5%/Brim 0.15%/Dorzolam 2% Ophth Soln] 2 drop BOTH EYES BID Artificial Tears-Hypromellose [Artificial Tear Drops] 1 drops BOTH EYES TID Discontinued Ibuprofen [Advil] 200 mg PO DAILY Discharge Medication List Timolol/Brimonidin/Dorzolam/Pf [Timolol 0.5%/Brim 0.15%/Dorzolam 2% Ophth Soln] 2 drop BOTH EYES BID 05/02/21 [History] Artificial Tears-Hypromellose [Artificial Tear Drops] 1 drops BOTH EYES TID 05/03/21 [History] Acetaminophen Tab [Tylenol] 650 mg PO Q6HR PRN tab 05/06/21 [Rx] Aspirin 81 mg PO DAILY tab 05/06/21 [Rx] Cholecalciferol [Vitamin D3 (25 Mcg = 1000 Iu)] 100 mcg PO DAILY #30 tablet 05/06/21 [Rx] Cholestyramine (with Sugar) [Questran Packet] 4 gm PO BID@1000,1800 #20 packet 05/06/21 [Rx] Cyanocobalamin [Vitamin B-12 Injection] 1,000 mcg IM WEEKLY #20 ml 05/06/21 [Rx] Pantoprazole [Protonix] 40 mg PO AC-BRKFST #60 tab 05/06/21 [Rx] Potassium Chloride ER [K-Dur 20] 20 meq PO BID #60 tablet 05/06/21 [Rx] Pyridoxine [Vitamin B-6] 50 mg PO BID #60 tab 05/06/21 [Rx] Vancomycin 125 mg PO QID 10 Days #40 05/06/21 [Rx]
[2021-05-06 13:06] VITALS: BP 172/78; PULSE 88; RESP 17; TEMP 98.3
--- NOTE | 2021-05-06 13:59 | FL ---
EXAMINATION TYPE: FL barium swallow w video DATE OF EXAM: 05/06/2021 COMPARISON: NONE HISTORY: Dysarthria, weakness, rule out aspiration. The patient was evaluated in the lateral projection during real-time fluoroscopy, during ingestion of barium mixed with solids and liquids. No aspiration or laryngeal penetration. See report from [facility] pathology. Vallecular residuals were noted. Delayed initiation of the swallow was present. 2 minutes 36 seconds fluoroscopy time, no images obtained
--- NOTE | 2021-05-06 15:16 | PN ---
PROGRESS NOTE DATE OF SERVICE: 05/06/2021 REASON FOR FOLLOWUP: C difficile colitis. INTERVAL HISTORY: The patient is afebrile. The patient is breathing comfortably. Denies having any chest pain, shortness of breath or cough. No abdominal pain. Diarrhea has slowed down. PHYSICAL EXAMINATION: Blood pressure is 172/78 with a pulse of 88, temperature 98.3. He is 93% on room air. GENERAL DESCRIPTION: General description is an elderly male lying in bed in no distress. RESPIRATORY SYSTEM: Unlabored breathing. Clear to auscultation anteriorly. HEART: S1, S2. Regular rate and rhythm. ABDOMEN: Soft. No tenderness. EXTREMITIES: No edema of the feet. LABS: Creatinine 0.64. DIAGNOSTIC IMPRESSION AND PLAN: Patient with Clostridium difficile colitis; seems to be clinically responding to the oral vancomycin and Questran; to continue to finish a 10-day course of therapy and monitor his clinical course closely. Continue supportive care. MMODL / IJN: [id number] /
--- NOTE | 2021-05-06 18:56 | P.PN ---
Subjective Progress Note Date: 05/06/21 Patient was seen for a follow-up. Patient offers no new complaints. Patient is laying comfortably in the bed. Patient has been diagnosed with C. difficile colitis. He is on oral vancomycin. Objective - Vital Signs Vital signs: Vital Signs Temp 98.3 F 05/06/21 12:00 Pulse 88 05/06/21 12:00 Resp 17 05/06/21 12:00 BP 172/78 05/06/21 12:00 Pulse Ox 93 L 05/06/21 12:00 Intake & Output 05/05/21 05/06/21 05/06/21 18:59 06:59 18:59 Intake Total 180 Balance 180 Weight 85.5 kg Intake: Oral 180 Other: Voiding Method Diaper Diaper Diaper Incontinent Incontinent Incontinent # Voids 1 1 - Exam Patient's mental status appears normal. Continues to have some dysarthric speech. No aphasia. Cranial nerves significant for right facial asymmetry. Tongue protrudes to the midline. Patient is hard of hearing. Patient has dysphagia. Discussed with speech therapist. Other cranial nerves normal. Muscle strength continues to show right wrist drop. Rest of the muscles are normal. Patient's tone is mild to moderately increased on the right, mildly on the left. No tremors at rest noted. Patient is bradykinetic. Patient has some shuffling gait noted by the nurse when he walked with a therapist. - Labs CBC & Chem 7: 05/04/21 13:01 05/06/21 09:19 Labs: Abnormal Lab Results - Last 24 Hours (Table) 05/06/21 Range/Units 09:19 Chloride 111 H (98-107) mmol/L Assessment and Plan Assessment: * Status post fall by sliding off the bed, and laying on the floor for about 12 hours. Patient not able to get up because of generalized weakness, probably related to diarrhea from C. difficile and his underlying severe osteoarthritis of upper extremities. * New onset right wrist drop, likely due to right radial nerve compression from prolonged laying on the floor. * Previous history of possible CVA in the past, with mild residual dysarthria and right facial asymmetry. MRI of the brain revealed no acute stroke. 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 No signs of Parkinson's disease. * Mild B12 deficiency. * Vitamin B6 deficiency * C. difficile colitis * Osteoarthritis * Minimally elevated ALT. * Hard of hearing. Plan: * Patient has developed right wrist drop, probably due to right radial nerve palsy from laying on the right arm for prolonged period of time. He. Hopefully will improve with time. Avoid laying on the right side, to prevent further compression of the right radial nerve. * May need outpatient EMG and nerve conduction studies of right upper extremity as outpatient, if symptoms persist beyond 2 weeks. * Patient is being treated for C. difficile colitis. * MRI of the brain revealed focal area of encephalomalacia along the basal ganglia on the right is again noted consistent with remote infarct. No acute process. Age-related changes of atrophy and chronic small vessel ischemia. No CP angle mass. * Carotid Doppler revealed no hemodynamic significant stenosis of proximal ICA. Antegrade flow in both vertebral arteries. * Continue aspirin 81 mg daily for stroke prevention. * Lipid panel with cholesterol 134, LDL 77, HDL 41 and triglycerides 77. No indication for statins. * B12 262, folate 15.0, MMA 0.29 normal. B6 3 (5-50), ESR 27, RA negative, CCP negative and hemoglobin A1c 5.0. Suggest continue B12 1000 g IM monthly and vitamin B6 50 mg twice a day for 2 weeks and then 50 mg once daily thereafter. * Recommended patient's daughter for him to follow up with a neurologist as outpatient.
== END 2021-05-06 17:00 | DRG 372 ==
LOC: EC 17:07 → 3SCARD 20:16
PROVIDERS: ADMIT Internal Medicine; ATTEND Internal Medicine
DX: A04.72 Enterocolitis due to Clostridium difficile, not specified as recurrent (principal); E87.2 Acidosis; G81.91 Hemiplegia, unspecified affecting right dominant side; J98.11 Atelectasis; T79.6XXA Traumatic ischemia of muscle, initial encounter; E53.1 Pyridoxine deficiency; E53.8 Deficiency of other specified B group vitamins; E55.9 Vitamin D deficiency, unspecified; E86.0 Dehydration; E87.6 Hypokalemia; G56.31 Lesion of radial nerve, right upper limb; I69.328 Other speech and language deficits following cerebral infarction; I69.392 Facial weakness following cerebral infarction; H40.9 Unspecified glaucoma; R79.1 Abnormal coagulation profile; H91.90 Unspecified hearing loss, unspecified ear; I73.9 Peripheral vascular disease, unspecified; M21.331 Wrist drop, right wrist; M47.9 Spondylosis, unspecified; Z20.822 Contact with and (suspected) exposure to COVID-19; E87.8 Other disorders of electrolyte and fluid balance, not elsewhere classified; M17.0 Bilateral primary osteoarthritis of knee; R26.2 Difficulty in walking, not elsewhere classified; W06.XXXA Fall from bed, initial encounter; Y92.003 Bedroom of unspecified non-institutional (private) residence as the place of occurrence of the external cause; M85.80 Other specified disorders of bone density and structure, unspecified site; R13.10 Dysphagia, unspecified; R32 Unspecified urinary incontinence; Z96.641 Presence of right artificial hip joint; Z60.2 Problems related to living alone
CPT/HCPCS: 36415; 70450; 70553; 71046; 72125; 74021; 74230; 80048; 80051; 80053; 80061; 81001; 82272; 82306; 82330; 82550; 82553; 82607; 82746; 83036; 83605; 83735; 83874; 83921; 84207; 84484; 85025; 85610; 85652; 85730; 86200; 86431; 87324; 87338; 87635; 93005; 93880; 96360; 96361; 99285

== ENCOUNTER → 2021-06-29 | Outpatient (CLI) | payer MEDICARE ==
[2021-06-29 15:44] LABS: Basophils # (A) 0.02 X 10*3/uL (0.00-0.10); Basophils % (A) 0.7 %; Eosinophils # (A) 0.01 X 10*3/uL (0.04-0.35); Eosinophils % (A) 0.4 %; HGB 13.6 g/dL (13.0-17.0); Lymphocytes # (A) 0.86 X 10*3/uL (0.90-5.00); Lymphocytes % (A) 31.9 %; MCH 29.2 pg (27.0-32.0); MCHC 30.9 g/dL (32.0-37.0); MCV 94.6 fL (80.0-97.0); Mean Platelet Volume 9.6 fL (9.5-12.2); Monocytes # (A) 0.38 X 10*3/uL (0.20-1.00); Monocytes % (A) 14.1 %; Neutrophils # (A) 1.43 X 10*3/uL (1.80-7.70); Neutrophils % (A) 52.9 %; Platelet Count 194 X 10*3/uL (140-440); RBC 4.65 X 10*6/uL (4.40-5.60); RDW 13.1 % (11.5-14.5)
[2021-06-29 17:01] LABS: ALT 24 U/L (10-49); AST 35 U/L (14-35); African American GFR (CKD) 71.5 (60.0-200.0); Albumin 4.1 g/dL (3.8-4.9); Albumin/Globulin Ratio 1.44 (1.60-3.17); Alkaline Phosphatase 67 U/L (41-126); BUN/Creat Ratio 15.18 Ratio (12.00-20.00); Calcium 9.1 mg/dL (8.7-10.3); Carbon Dioxide 24.6 mmol/L (21.6-31.8); Chloride 102 mmol/L (96-109); Creatine Kinase 41 U/L (35-257); Globulin 2.8 g/dL (1.6-3.3); Glucose 99 mg/dL (70-110); Non-African American GFR(CKD) 61.7 (60.0-200.0); Potassium 4.6 mmol/L (3.5-5.5); Sodium 139 mmol/L (135-145); Total Protein 6.9 g/dL (6.2-8.2)
[2021-06-29 17:02] LABS: Chol/HDL Ratio 4.79 Ratio; LDL Cholesterol,Calculated 105.4 mg/dL (0.0-131.0); Magnesium 1.8 mg/dL (1.5-2.4); Phosphorus 3.6 mg/dL (2.4-5.1); Uric Acid 7.5 mg/dL (3.7-8.7)
[2021-06-29 17:48] LABS: Erythrocyte Sedimentation Rate 32 mm/Hr (0-20)
[2021-06-29 22:31] LABS: DNA Double-Stranded NEGATIVE (NEGATIVE)
== END | disposition home or self-care (01) ==
LOC: LABWHC1 09:18
PROVIDERS: ATTEND Internal Medicine
DX: E11.65 Type 2 diabetes mellitus with hyperglycemia (principal); D64.9 Anemia, unspecified; N40.0 Benign prostatic hyperplasia without lower urinary tract symptoms; M10.9 Gout, unspecified; E78.5 Hyperlipidemia, unspecified; M81.0 Age-related osteoporosis without current pathological fracture; E55.9 Vitamin D deficiency, unspecified; D89.9 Disorder involving the immune mechanism, unspecified; G90.09 Other idiopathic peripheral autonomic neuropathy
CPT/HCPCS: 36415; 80053; 80061; 82272; 82306; 82550; 83036; 83735; 84100; 84153; 84443; 84550; 85025; 85652; 86038; 86140; 86225

== ENCOUNTER → 2021-09-21 | Outpatient (CLI) | payer MEDICARE ==
[2021-09-21 15:35] LABS: Creatinine,Urine Random 159.4 mg/dL
[2021-09-21 18:29] LABS: ALT 11 U/L (10-49); AST 19 U/L (14-35); African American GFR (CKD) 80.1 (60.0-200.0); Albumin 3.9 g/dL (3.8-4.9); Alkaline Phosphatase 59 U/L (41-126); BUN/Creat Ratio 11.76 Ratio (12.00-20.00); Calcium 9.3 mg/dL (8.7-10.3); Carbon Dioxide 24.2 mmol/L (20.0-27.5); Chloride 108 mmol/L (96-109); Creatine Kinase 52 U/L (35-257); Globulin 2.8 g/dL (1.6-3.3); Glucose 90 mg/dL (70-110); Magnesium 1.9 mg/dL (1.5-2.4); Non-African American GFR(CKD) 69.1 (60.0-200.0); Phosphorus 3.5 mg/dL (2.4-5.1); Potassium 4.3 mmol/L (3.5-5.5); Sodium 143 mmol/L (135-145); Total Protein 6.7 g/dL (6.2-8.2); Uric Acid 6.1 mg/dL (3.7-8.7)
[2021-09-21 18:47] LABS: Chol/HDL Ratio 3.67 Ratio; VLDL Calculation 18.76 mg/dL (5.00-40.00)
[2021-09-21 19:21] LABS: Basophils # (A) 0.05 X 10*3/uL (0.00-0.10); Basophils % (A) 0.9 %; Eosinophils % (A) 1.8 %; HCT 42.8 % (39.6-50.0); HGB 13.4 g/dL (13.0-17.0); Immature Grans, Automated 0.2 %; MCHC 31.3 g/dL (32.0-37.0); Mean Platelet Volume 9.4 fL (9.5-12.2); Monocytes # (A) 0.52 X 10*3/uL (0.20-1.00); Monocytes % (A) 9.2 %; NRBC Per 100 WBC 0 /100 WBCS (0.0-0.0); Neutrophils # (A) 3.66 X 10*3/uL (1.80-7.70); Neutrophils % (A) 64.9 %; Platelet Count 241 X 10*3/uL (140-440); RBC 4.46 X 10*6/uL (4.40-5.60); RDW 13.4 % (11.5-14.5); WBC 5.64 X 10*3/uL (4.50-10.00)
[2021-09-21 21:15] LABS: Erythrocyte Sedimentation Rate 18 mm/Hr (0-20)
== END | disposition home or self-care (01) ==
LOC: LABWHC1 10:02
PROVIDERS: ATTEND Internal Medicine
DX: D64.9 Anemia, unspecified (principal); I10 Essential (primary) hypertension; E78.5 Hyperlipidemia, unspecified
CPT/HCPCS: 36415; 80053; 80061; 82306; 82550; 82570; 83735; 84100; 84156; 84443; 84550; 85025; 85652; 86140

== ENCOUNTER → 2021-11-25 | Outpatient (CLI) | payer MEDICARE ==
[2021-11-25 18:29] LABS: African American GFR (CKD) 73.1 (60.0-200.0); Anion Gap 9.9 mmol/L (10.00-18.00); BUN/Creat Ratio 10.64 Ratio (12.00-20.00); Blood Urea Nitrogen 11.7 mg/dL (9.0-27.0); Calcium 9.5 mg/dL (8.7-10.3); Carbon Dioxide 27.1 mmol/L (20.0-27.5); Non-African American GFR(CKD) 63.1 (60.0-200.0); Potassium 4.9 mmol/L (3.5-5.5)
== END | disposition home or self-care (01) ==
LOC: LABWHC1 11:20
PROVIDERS: ATTEND Internal Medicine
DX: E87.6 Hypokalemia (principal); E53.9 Vitamin B deficiency, unspecified
CPT/HCPCS: 36415; 80048; 82607

== ENCOUNTER → 2022-02-18 | Outpatient (CLI) | payer MEDICARE ==
--- NOTE | 2022-02-18 15:18 | XR ---
2 view abdomen HISTORY: R 10.9, K 59.00 2 views the abdomen on 3 images, correlation prior exam 05/04/2021 Lung bases are clear. Surgical clips are present right upper quadrant. There is no evident bowel obst ruction or pneumoperitoneum. Some retained fecal debris is present within the colon. Spinal spondylos is is noted incidentally. Patient is status post right hip arthroplasty with heterotopic new bone for mation. Probable vascular calcifications within the pelvis. Osteoarthritic change present in the left hip. IMPRESSION: Nonobstructive bowel gas pattern.
[2022-02-18 18:25] LABS: Magnesium 2.3 mg/dL (1.5-2.4); Phosphorus 2.9 mg/dL (2.4-5.1)
[2022-02-18 19:11] LABS: Basophils # (A) 0.04 X 10*3/uL (0.00-0.10); Basophils % (A) 0.6 %; Eosinophils # (A) 0.02 X 10*3/uL (0.04-0.35); Eosinophils % (A) 0.3 %; HCT 41.2 % (39.6-50.0); HGB 13.2 g/dL (13.0-17.0); Immature Grans, Automated 0.3 %; Lymphocytes # (A) 0.91 X 10*3/uL (0.90-5.00); Lymphocytes % (A) 13.4 %; MCH 29.9 pg (27.0-32.0); MCV 93.2 fL (80.0-97.0); Mean Platelet Volume 10.5 fL (9.5-12.2); Monocytes # (A) 0.72 X 10*3/uL (0.20-1.00); Monocytes % (A) 10.6 %; NRBC Per 100 WBC 0 /100 WBCS (0.0-0.0); Neutrophils # (A) 5.06 X 10*3/uL (1.80-7.70); Neutrophils % (A) 74.8 %; Platelet Count 206 X 10*3/uL (140-440); RBC 4.42 X 10*6/uL (4.40-5.60); WBC 6.77 X 10*3/uL (4.50-10.00)
[2022-02-18 19:12] LABS: RBC Morphology NORMAL
[2022-02-18 19:15] LABS: ALT 14 U/L (10-49); AST 15 U/L (14-35); African American GFR (CKD) 5.6 (60.0-200.0); Albumin 3.9 g/dL (3.8-4.9); Albumin/Globulin Ratio 1.33 (1.60-3.17); Alkaline Phosphatase 60 U/L (41-126); BUN/Creat Ratio 8.95 Ratio (12.00-20.00); Carbon Dioxide 22.4 mmol/L (20.0-27.5); Chloride 102 mmol/L (96-109); Globulin 2.9 g/dL (1.6-3.3); Glucose 173 mg/dL (70-110); Non-African American GFR(CKD) 4.9 (60.0-200.0); Potassium 4.7 mmol/L (3.5-5.5); Sodium 141 mmol/L (135-145); Total Protein 6.8 g/dL (6.2-8.2)
[2022-02-18 19:56] LABS: Erythrocyte Sedimentation Rate 55 mm/Hr (0-20)
== END | disposition home or self-care (01) ==
LOC: LABWHC1 12:19
PROVIDERS: ATTEND Internal Medicine
DX: E55.9 Vitamin D deficiency, unspecified (principal); R10.9 Unspecified abdominal pain; E03.9 Hypothyroidism, unspecified; K59.00 Constipation, unspecified
CPT/HCPCS: 36415; 74019; 80053; 82306; 82607; 82746; 83735; 84100; 84443; 85025; 85652; 86140

== ENCOUNTER 2022-02-19 11:50 | Inpatient (IN) | payer MEDICARE ==
[2022-02-19] MEDS ORDERED: SODIUM CHLORIDE 0.9% 500 ML 500 ML IV STA (12:16)
[2022-02-19] MEDS ORDERED: SODIUM CHLORIDE 0.9% 1,000 ML IV STA ×2 (12:26→12:31)
--- NOTE | 2022-02-19 12:51 | ED ---
General Adult HPI - General Chief complaint: Weakness Stated complaint: Weakness Time Seen by Provider: 02/19/22 12:16 Source: patient, family, RN notes reviewed, old records reviewed Mode of arrival: wheelchair Limitations: no limitations - History of Present Illness Initial comments: Patient Is an 81-year-old male who presents emergency Department with his family concern for worsening weakness for the last 3-4 days. 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 Family has noticed that over the last 3-4 days, patient become more weak. He normally can ambulate with his walker. They've noticed she is having a difficult time standing up. Also noticed that his speech seems slowed but not slurred. They brought him to his PCP yesterday where labs and an abdominal x- ray were obtained. They brought him back in today over concern for worsening weakness. He is complaining of lower abdominal pain. Denies nausea. They concerned he is not eating or drinking enough. Patient does live at home alone by himself. Unknown in terms of trauma or falls. Unknown last bowel movement. At least 1 day of no urine output. No fevers, chills, cough. No chest pain. Patient otherwise has no acute complaints other than the abdominal discomfort in the generalized weakness. Presents for further evaluation at this time. - Related Data Home Medications Medication Instructions Recorded Confirmed Timolol/Brimonidin/Dorzolam/Pf 1 drop BOTH EYES BID 05/02/21 02/19/22 [Timolol 0.5%/Brim 0.15%/Dorzolam 2% [facility]] Acetaminophen [Tylenol Arthritis] 650 mg PO Q12H PRN 02/19/22 02/19/22 Carboxymethylcellulose Sodium 1 drop BOTH EYES Q4H PRN 02/19/22 02/19/22 [Refresh Tears] Cholecalciferol [Vitamin D3 (25 25 mcg PO DAILY 02/19/22 02/19/22 Mcg = 1000 Iu)] Potassium Gluconate [Potassium 99 mg PO DAILY 02/19/22 02/19/22 Gluconate ER] Previous Rx's Medication Instructions Recorded Aspirin 81 mg PO DAILY tab 05/06/21 Pantoprazole [Protonix] 40 mg PO AC-BRKFST #60 tab 05/06/21 Allergies Allergy/AdvReac Type Severity Reaction Status Date / Time No Known Allergies Allergy Verified 02/19/22 14:03 Review of Systems ROS Statement: Those systems with pertinent positive or pertinent negative responses have been documented in the HPI. Review of Systems: CONST: Denies fever EYES: Denies blurry vision ENT: Denies nasal congestion C/V: Denies Chest pain RESP: Denies shortness of breath GI: Endorses abdominal pain : Denies dysuria SKIN: Denies rash. MSK: Denies joint pain. NEURO: Denies headache ROS Other: All systems not noted in ROS Statement are negative. Past Medical History Past Medical History: Eye Disorder, Osteoarthritis (OA) Additional Past Medical History / Comment(s): glaucoma, History of Any Multi-Drug Resistant Organisms: C-DIFF Date of last positivie culture/infection: 05/02/2021 MDRO Source:: Stool Past Surgical History: Cholecystectomy, Joint Replacement Additional Past Surgical History / Comment(s): right hip replaced, cataract surg. Past Anesthesia/Blood Transfusion Reactions: No Reported Reaction Past Psychological History: No Psychological Hx Reported Smoking Status: Never smoker Past Alcohol Use History: None Reported Past Drug Use History: None Reported - Past Family History Mother Family Medical History: No Reported History Father Family Medical History: No Reported History General Exam - General Exam Comments Initial Comments: General: Appears in no acute distress. HEAD: Normal with no signs of head trauma. EYES: EOMI. Conjunctiva normal. Right pupil slightly larger than left pupil secondary to prior lung surgery which is chronic. ENT: Hearing grossly intact, normal oropharynx. RESPIRATORY: Clear breath sounds bilaterally. No wheezes, rales, or rhonchi. C/V: Regular rate and rhythm. S1 and S2 auscultated, no edema, peripheral pulses 2+ and intact throughout ABD: Abdomen is soft, with some suprapubic tenderness and distention. No guar ding. No rebound tenderness. No peritoneal signs. EXT: Normal range of motion, no obvious deformity SKIN: No rashes or lesions observed on exposed skin. NEURO: Alert and oriented 4. No focal sensory strength deficits. Ablates with a walker at baseline. 4 out of 5 strength in all 4 extremities. No obvious deficits. Right pupil is larger than left pupil, however this is chronic secondary to lens surgery. GCS is 15. NIH is 0. Limitations: no limitations Course Vital Signs 02/19/22 02/19/22 02/19/22 12:05 13:27 16:14 Temperature 98 F Pulse Rate 93 92 88 Respiratory 18 18 18 Rate Blood Pressure 129/74 111/63 104/50 O2 Sat by Pulse 99 96 98 Oximetry Medical Decision Making - Medical Decision Making Based on the patient's presentation and physical exam, I'm concerned for possible infectious etiology but cannot rule out other etiology for his current symptoms. I will review his laboratory studies from yesterday but we will obtain a broad workup including electrolytes, cardiac, CT brain and abdomen and pelvis. Chest x-ray will also be obtained. Family was in agreement this plan. I did review the patient's labs from yesterday and it does appear that he is in acute renal failure with a creatinine of 9. Bladder scan will be obtained and 40 catheter will be placed to monitor urine output. Bladder scan did show a large amount of urine in the bladder, unable to Light. Full catheter was therefore placed we will monitor his urine output. Weakness is all likely secondary to this urinary retention causing acute renal failure but we will complete workup at this time. Vital signs are within normal limits and stable.Abdominal x-ray from yesterday showed no acute process. He was started on normal saline fluids. EKG showed no signs of acute ischemia.Chest x-ray reveals no acute cardiopulmonary process. Renal ultrasound shows no acute findings. Ultrasound completed following Hernandez catheter placement. CT brain and CT abdomen and pelvis revealed mild fecal stasis but no other findings. No acute intracranial process. There are chronic changes. Repeat laboratory studies performed today revealed a slight leukocytosis of 11.6. Patient is mildly hyperkalemic to 5.4 and patient was administered IV fluids as there were no EKG changes. Patient has redemonstration of his acute renal failure with a one of 105 and creatinine of 11.62. Patient has a metabolic acidosis with an anion gap, likely secondary to lactic acidosis with his lactic acid of 2.5. Troponin is indeterminate will be trended. Urinalysis is unremarkable. Covid is positive. Flu is negative. Patient had a total of over 1500 mL of urine from his Hernandez catheter. I discussed the findings with him and family members patient patient will be ad mitted to the hospital. Urology as well as nephrology will be consulted. He'll be started on maintenance fluids in addition to the Hernandez catheter. I did discuss obtaining monoclonal antibodies, as the patient will be admitted for his acute renal failure and urinary retention, not for Covid. Therefore he does meet admission criteria. He accepted the monoclonal antibodies. He was not vaccinated. Does not want to vaccine. I updated the patient's family members of the positive Covid test and recommended that they be tested if they have symptoms. They were in agreement this plan. I answered all questions that he had. I spoke with the admitting physician, Dr. Lopez was in agreement this plan. I spoke with Dr. Mehta of nephrology who was in agreement this plan. Urology was consulted. Patient was admitted in stable condition. - Lab Data Result diagrams: 02/19/22 12:31 02/19/22 12:31 Lab Results 02/19/22 02/19/22 02/19/22 Range/Units 12:31 12:31 12:31 WBC 11.6 H (3.8-10.6) k/uL RBC 4.52 (4.30-5.90) m/uL Hgb 14.1 (13.0-17.5) gm/dL Hct 43.5 (39.0-53.0) % MCV 96.1 (80.0-100.0) fL MCH 31.1 (25.0-35.0) pg MCHC 32.3 (31.0-37.0) g/dL RDW 12.7 (11.5-15.5) % Plt Count 221 (150-450) k/uL MPV 7.9 Neutrophils % 85 % Lymphocytes % 7 % Monocytes % 7 % Eosinophils % 0 % Basophils % 0 % Neutrophils # 9.9 H (1.3-7.7) k/uL Lymphocytes # 0.8 L (1.0-4.8) k/uL Monocytes # 0.8 (0-1.0) k/uL Eosinophils # 0.0 (0-0.7) k/uL Basophils # 0.0 (0-0.2) k/uL PT 11.5 (9.0-12.0) sec INR 1.1 (<1.2) APTT 22.7 (22.0-30.0) sec Sodium 139 (137-145) mmol/L Potassium 5.4 H (3.5-5.1) mmol/L Chloride 102 (98-107) mmol/L Carbon Dioxide 18 L (22-30) mmol/L Anion Gap 19 mmol/L BUN 105 H* (9-20) mg/dL Creatinine 11.62 H* (0.66-1.25) mg/dL Est GFR (CKD-EPI)AfAm 4 (>60 ml/min/1.73 sqM) Est GFR (CKD-EPI)NonAf 4 (>60 ml/min/1.73 sqM) Glucose 158 H (74-99) mg/dL Lactic Ac Sepsis Rflx Plasma Lactic Acid John (0.7-2.0) mmol/L Calcium 10.2 (8.4-10.2) mg/dL Magnesium 2.4 H (1.6-2.3) mg/dL Total Bilirubin 1.3 (0.2-1.3) mg/dL AST 50 (17-59) U/L ALT 24 (4-49) U/L Alkaline Phosphatase 73 (38-126) U/L Troponin I (0.000-0.034) ng/mL Total Protein 7.8 (6.3-8.2) g/dL Albumin 4.4 (3.5-5.0) g/dL Urine Color Urine Appearance (Clear) Urine pH (5.0-8.0) Ur Specific [place] (1.001-1.035) Urine Protein (Negative) Urine Glucose (UA) (Negative) Urine Ketones (Negative) Urine Blood (Negative) Urine Nitrite (Negative) Urine Bilirubin (Negative) Urine Urobilinogen (<2.0) mg/dL Ur Leukocyte Esterase (Negative) Urine RBC (0-5) /hpf Urine WBC (0-5) /hpf Ur Squamous Epith Cells (0-4) /hpf Urine Bacteria (None) /hpf Hyaline Casts (0-2) /lpf Urine Mucus (None) /hpf Coronavirus (PCR) (Not Detectd) Influenza Type A RNA (Not Detectd) Influenza Type B (PCR) (Not Detectd) 02/19/22 02/19/22 02/19/22 Range/Units 12:31 12:31 12:42 WBC (3.8-10.6) k/uL RBC (4.30-5.90) m/uL Hgb (13.0-17.5) gm/dL Hct (39.0-53.0) % MCV (80.0-100.0) fL MCH (25.0-35.0) pg MCHC (31.0-37.0) g/dL RDW (11.5-15.5) % Plt Count (150-450) k/uL MPV Neutrophils % % Lymphocytes % % Monocytes % % Eosinophils % % Basophils % % Neutrophils # (1.3-7.7) k/uL Lymphocytes # (1.0-4.8) k/uL Monocytes # (0-1.0) k/uL Eosinophils # (0-0.7) k/uL Basophils # (0-0.2) k/uL PT (9.0-12.0) sec INR (<1.2) APTT (22.0-30.0) sec Sodium (137-145) mmol/L Potassium (3.5-5.1) mmol/L Chloride (98-107) mmol/L Carbon Dioxide (22-30) mmol/L Anion Gap mmol/L BUN (9-20) mg/dL Creatinine (0.66-1.25) mg/dL Est GFR (CKD-EPI)AfAm (>60 ml/min/1.73 sqM) Est GFR (CKD-EPI)NonAf (>60 ml/min/1.73 sqM) Glucose (74-99) mg/dL Lactic Ac Sepsis Rflx Plasma Lactic Acid John 2.5 H* (0.7-2.0) mmol/L Calcium (8.4-10.2) mg/dL Magnesium (1.6-2.3) mg/dL Total Bilirubin (0.2-1.3) mg/dL AST (17-59) U/L ALT (4-49) U/L Alkaline Phosphatase (38-126) U/L Troponin I 0.028 (0.000-0.034) ng/mL Total Protein (6.3-8.2) g/dL Albumin (3.5-5.0) g/dL Urine Color Yellow Urine Appearance Clear (Clear) Urine pH 5.5 (5.0-8.0) Ur Specific [place] 1.014 (1.001-1.035) Urine Protein Negative (Negative) Urine Glucose (UA) Negative (Negative) Urine Ketones Negative (Negative) Urine Blood Trace H (Negative) Urine Nitrite Negative (Negative) Urine Bilirubin Negative (Negative) Urine Urobilinogen <2.0 (<2.0) mg/dL Ur Leukocyte Esterase Negative (Negative) Urine RBC 7 H (0-5) /hpf Urine WBC 3 (0-5) /hpf Ur Squamous Epith Cells 1 (0-4) /hpf Urine Bacteria Rare H (None) /hpf Hyaline Casts 1 (0-2) /lpf Urine Mucus Rare H (None) /hpf Coronavirus (PCR) (Not Detectd) Influenza Type A RNA (Not Detectd) Influenza Type B (PCR) (Not Detectd) 02/19/22 02/19/22 02/19/22 Range/Units 12:54 12:54 13:18 WBC (3.8-10.6) k/uL RBC (4.30-5.90) m/uL Hgb (13.0-17.5) gm/dL Hct (39.0-53.0) % MCV (80.0-100.0) fL MCH (25.0-35.0) pg MCHC (31.0-37.0) g/dL RDW (11.5-15.5) % Plt Count (150-450) k/uL MPV Neutrophils % % Lymphocytes % % Monocytes % % Eosinophils % % Basophils % % Neutrophils # (1.3-7.7) k/uL Lymphocytes # (1.0-4.8) k/uL Monocytes # (0-1.0) k/uL Eosinophils # (0-0.7) k/uL Basophils # (0-0.2) k/uL PT (9.0-12.0) sec INR (<1.2) APTT (22.0-30.0) sec Sodium (137-145) mmol/L Potassium (3.5-5.1) mmol/L Chloride (98-107) mmol/L Carbon Dioxide (22-30) mmol/L Anion Gap mmol/L BUN (9-20) mg/dL Creatinine (0.66-1.25) mg/dL Est GFR (CKD-EPI)AfAm (>60 ml/min/1.73 sqM) Est GFR (CKD-EPI)NonAf (>60 ml/min/1.73 sqM) Glucose (74-99) mg/dL Lactic Ac Sepsis Rflx Y Plasma Lactic Acid John (0.7-2.0) mmol/L Calcium (8.4-10.2) mg/dL Magnesium (1.6-2.3) mg/dL Total Bilirubin (0.2-1.3) mg/dL AST (17-59) U/L ALT (4-49) U/L Alkaline Phosphatase (38-126) U/L Troponin I (0.000-0.034) ng/mL Total Protein (6.3-8.2) g/dL Albumin (3.5-5.0) g/dL Urine Color Urine Appearance (Clear) Urine pH (5.0-8.0) Ur Specific [place] (1.001-1.035) Urine Protein (Negative) Urine Glucose (UA) (Negative) Urine Ketones (Negative) Urine Blood (Negative) Urine Nitrite (Negative) Urine Bilirubin (Negative) Urine Urobilinogen (<2.0) mg/dL Ur Leukocyte Esterase (Negative) Urine RBC (0-5) /hpf Urine WBC (0-5) /hpf Ur Squamous Epith Cells (0-4) /hpf Urine Bacteria (None) /hpf Hyaline Casts (0-2) /lpf Urine Mucus (None) /hpf Coronavirus (PCR) Detected A (Not Detectd) Influenza Type A RNA Not Detected (Not Detectd) Influenza Type B (PCR) Not Detected (Not Detectd) - EKG Data -: EKG Interpreted by Me EKG Comments: 12-lead Electrocardiogram Interpretation Note EKG was reviewed and interpreted by myself. 12-lead ECG performed at 1227 is interpreted by me as revealing normal sinus rhythm at a rate of 91 beats per minute. [place] is normal. GA interval is 157 ms, QRS duration is 80 ms, QTc is 379 ms.. There were no ST or T wave abnormalities to suggest myocardial ischemia or injury. R wave progression across the precordium was satisfactory. By my interpretation this EKG is non-diagnostic for acute ischemia. Critical Care Time Critical Care Time: Yes Total Critical Care Time: 35 Critical Care Time: Upon my evaluation, this patient had a high probability of imminent or life- threatening deterioration due to acute renal failure, mild hyperkalemia, urinary retention, COVID-19 positive, which required my direct attention, intervention, and personal management. I have personally provided 35 minutes of critical care time exclusive of time spent on separately billable procedures. Time includes review of laboratory data, radiology results, discussion with consultants, and monitoring for potential decompensation. Interventions were performed as documented in my note. Disposition Clinical Impression: Acute renal failure (ARF), Obstructive uropathy, Hyperkalemia, COVID-19 Disposition: ADMITTED IP TO THIS HOSP Condition: Stable Time of Disposition: 14:30
[2022-02-19 13:03] LABS: Basophils % (A) 0 %; Eosinophils % (A) 0 %; HCT 43.5 % (39.0-53.0); HGB 14.1 gm/dL (13.0-17.5); Lymphocytes # (A) 0.8 k/uL (1.0-4.8); Lymphocytes % (A) 7 %; MCH 31.1 pg (25.0-35.0); MCHC 32.3 g/dL (31.0-37.0); MCV 96.1 fL (80.0-100.0); Mean Platelet Volume 7.9; Monocytes # (A) 0.8 k/uL (0-1.0); Monocytes % (A) 7 %; Neutrophils # (A) 9.9 k/uL (1.3-7.7); Neutrophils % (A) 85 %; Platelet Count 221 k/uL (150-450); RBC 4.52 m/uL (4.30-5.90); RDW 12.7 % (11.5-15.5); WBC 11.6 k/uL (3.8-10.6)
[2022-02-19 13:13] LABS: Albumin 4.4 g/dL (3.5-5.0); Calcium 10.2 mg/dL (8.4-10.2); Magnesium 2.4 mg/dL (1.6-2.3); Potassium 5.4 mmol/L (3.5-5.1); Total Bilirubin 1.3 mg/dL (0.2-1.3); Total Protein 7.8 g/dL (6.3-8.2)
[2022-02-19 13:23] LABS: Appearance,Urine Clear (Clear); Bacteria,Urine Rare /hpf; Bilirubin,Urine Negative (Negative); Blood,Urine Trace (Negative); Color,Urine Yellow; Glucose,Urine (UA) Negative (Negative); Hyaline Casts,Urine 1 /lpf (0-2); Ketones,Urine Negative (Negative); Leukocyte Esterase,Urine Negative (Negative); Mucus,Urine Rare /hpf; Nitrite,Urine Negative (Negative); PH, Urine 5.5 (5.0-8.0); Protein,Urine Negative (Negative); RBC,Urine 7 /hpf (0-5); Specific Gravity,Urine 1.014 (1.001-1.035); Squamous Epithelial Cell,Urine 1 /hpf (0-4); Urobilinogen,Urine <2.0 mg/dL (<2.0); WBC,Urine 3 /hpf (0-5)
--- NOTE | 2022-02-19 14:12 | US ---
EXAMINATION TYPE: US renals and bladder DATE OF EXAM: 02/19/2022 COMPARISON: NONE CLINICAL HISTORY: arf. EXAM MEASUREMENTS: Right Kidney: 11.1 x 6.4 x 5.7 cm Left Kidney: 11.0 x 6.8 x 6.5 cm Right Kidney: No hydronephrosis or masses seen Left Kidney: No hydronephrosis or masses seen Bladder: not distended, patient has catheter IMPRESSION: No evidence of renal mass or obstruction. Urinary bladder empty during the exam.
--- NOTE | 2022-02-19 14:21 | XR ---
EXAMINATION TYPE: XR chest 2V DATE OF EXAM: 02/19/2022 COMPARISON: Chest x-ray May 01, 2021 HISTORY: Weakness. TECHNIQUE: Frontal and lateral views of the chest are obtained. FINDINGS: There is some chronic parenchymal changes bilaterally without suspicious focal air space o pacity, pleural effusion, or pneumothorax seen. The cardiac silhouette size is stable and within nor mal limits. The osseous structures are demineralized. IMPRESSION: Chronic changes without acute pulmonary process. No significant change from prior.
--- NOTE | 2022-02-19 14:23 | CT ---
EXAMINATION TYPE: CT brain wo con DATE OF EXAM: 02/19/2022 HISTORY: Weakness, stroke history CT DLP: 1094.1 mGycm. Automated Exposure Control for Dose Reduction was Utilized. TECHNIQUE: CT scan of the head is performed without contrast. COMPARISON: CT brain May 01, 2021. MRI brain May 03, 2021 FINDINGS: There is no acute intracranial hemorrhage or midline shift identified. There is mild diff use ventricular and sulcal prominence consistent with diffuse age-related cerebral atrophy. There is mild low-attenuation in the periventricular white matter consistent with chronic small vessel ischem ic change. The globes are intact and the visualized sinuses are clear. IMPRESSION: No acute intracranial hemorrhage or midline shift. There is mild diffuse cerebral atrop hy and chronic small vessel ischemic change redemonstrated. No significant change from prior studies .
--- NOTE | 2022-02-19 14:26 | CT ---
EXAMINATION TYPE: CT abdomen pelvis wo con DATE OF EXAM: 02/19/2022 HISTORY: Weakness, abdominal pain CT DLP: 761.2 mGycm. Automated Exposure Control for Dose Reduction was Utilized. TECHNIQUE: CT scan of the abdomen and pelvis is performed without oral or IV contrast. COMPARISON: NONE FINDINGS: Within the limitations of a non-contrast study, the following observations are made. Subop timal as there is artifact from overlying bilateral upper extremities. LUNG BASES: No significant abnormality is appreciated. LIVER/GB: Cholecystectomy clips are seen. PANCREAS: No significant abnormality is seen. SPLEEN: No significant abnormality is seen. ADRENALS: Slightly low dense thickening of both adrenal glands favoring benign lipid rich hyperplasia . KIDNEYS: No definitive renal calculi or hydronephrosis bilaterally. Hernandez catheter within urinary john dder. BOWEL: Suboptimal evaluation without enteric contrast. No suspicious small or large bowel dilatation. Mild to moderate right-sided colonic fecal prominence. GENITAL ORGANS: Enlarged prostate consistent with BPH. LYMPH NODES: No greater than 1cm abdominal or pelvic lymph nodes are appreciated. OSSEOUS STRUCTURES: Metallic hardware from right hip arthroplasty causes streak artifact limiting harmony luation of pelvic structures. Calcified disc L5-S1 level OTHER: Mild to moderate calcified plaque of the aorta extends into branch vessels.. IMPRESSION: No renal stones or hydronephrosis is clearly seen bilaterally. No bowel obstruction. Mild /moderate proximal colonic fecal stasis otherwise no acute findings present on noncontrast CT.
[2022-02-19 14:29] LABS: INR 1.1 (<1.2); Partial Thromboplastin Time 22.7 sec (22.0-30.0); Prothrombin Time 11.5 sec (9.0-12.0)
[2022-02-19] MEDS ORDERED: NALOXONE 0.4 MG/ML 1 ML VIAL IV PRN (14:42)
[2022-02-19] MEDS ORDERED: ONDANSETRON 4 MG/2 ML VIAL IVP PRN (14:42)
[2022-02-19] MEDS ORDERED: ARTIFICIAL TEARS-HYPROMELLOSE DROPS 15 ML BTL BOTH EYES PRN (14:44)
[2022-02-19] MEDS ORDERED: BEBTELOVIMAB (EUA) 175 MG/2 ML VIAL IV ONE (16:15)
[2022-02-19 17:05] LABS: ABG HCO3 20 mmol/L (21-25); ABG Oxygen Saturation 98.4 % (94-97); ABG PCO2 31 mmHg (35-45); ABG PH 7.41 (7.35-7.45); ABG PO2 95 mmHg (83-108); ABG TCO2 21 mmol/L (19-24); Allen Test Performed? Yes
--- NOTE | 2022-02-19 17:09 | P.HPIM ---
History of Present Illness H&P Date: 02/19/22 (Progressive generalized weakness) Chief Complaint: Progressive weakness with inability to walk, unable to urinate. History and physical Dictation date of service 02/19/[address] Lopez. Chief complaint: Patient presented to the emergency room with progressive generalized weakness, he live alone, his daughter able to help him and she live close by. Main complaint generalized weakness and he use to be able to use a walker with a history of stroke and speech disturbance due to the stroke. His symptoms progressed for the last 3 days. He had laboratory test done and Monday and x- ray and he supposed to see me next week in the office. However patient progres sed and his weakness increase, he wasn't able to go to urinate in the ER found that he had 1700 as I was told with the bladder scan. With the probability of enlarged prostate as well as the did a computed tomography scan and ultrasound of the kidneys with no hydronephrosis with the presence of enlarged prostate. History of present illness Patient seen on Monday with a vague complaint of lower abdominal discomfort and history of GERD disease, given laboratory and x-rays, patient supposedly have these testing before I see him however that was not done and is complaining of fatigue abdominal pain progressed. Subsequently patient came to the ER examined by Dr. Lynn and evaluated and laboratory was obtained found that he has a KCI with the GFR for and creatinine 11.6 to and the BUN 105 added to call G[facility] testing COVID-19 test was positive for coronavirus. Patient received in the ER the monoclonal. Bebtelovimab EUA 175 mg IV X1. Past medical history: Benign prostatic hypertrophy, no history of obstruction uropathy in the past. No history of stones. No history of hydronephrosis in the past. He had history of CVA affected the internal capsule and affecting his walking as well as a speech impediment secondary to the stroke. He was at home functioning and able to ambulate with a walker, current changes is new and duration of 33 days and progressive. History of GERD disease. Not a smoker Nondrinker Has only one daughter and he is . ALLERGY unknown. Review of system: #1 patient is very difficult to communicate with the speech worsening with a history of CVA in the past but currently this is a new changes and he had a CAT scan which was not indicating any new changes or new stroke. #2 cardiovascular he had no history of hypertension and he is not on any medication for blood pressure #3 history of hyper lipidemia #4 never smoked and no asthma or wheezing or cough but found today in the ER that he had [id number] test for coronavirus was positive. And patient received monoclonal in the ER still will be isolated #5 no history of acute renal failure in the past however dehydration was positive. #6 no history of diabetes mellitus in the past and no thyroid disease. #7 right hip arthroplasty and cholecystectomy in the past. #8 musculoskeletal difficulty with walking and uses a walker at home and he was active. Rest of the review of system was noncontributory On examination [id number]: Head was normocephalic and atraumatic, pupil on equal was and nasal xander secondary to cataract surgery and glaucoma. But reactive. He has a speech disturbance, normal natural teeth with upper and lower tongue is normal and able to eat and swallow at home physician and the uvula midline. Hearing mild to moderate impairment. Neck was supple no JVD no thyromegaly no lymphadenopathy trachea midline. Chest was clear to auscultation and percussion no wheezes no rhonchi's and normal breath sounds Heart: PMI in the fifth intercostal space normal S1 and S2 no gallop nor drop no murmur. Abdomen: Soft positive bowel sound and no tenderness on the flank or the 4 quadr ant however he had suprapubic discomfort and he had Hernandez catheter placed secondary of urinary retention with large amount to THE past the residual volume. Extremities: No edema and positive pulses. 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 Lower extremities he is able to elevate his leg from the supine position pulses was intact able to bend his knee some of the sensation is impaired. On admission to the ER his vital sign: Temperature was 90 8F oral her heart rate 93 bpm regular, respiratory rate 18, blood pressure was 129/74 with a mean blood pressure 92, oxygen saturation on room air was 99. Percent Laboratory: Leukocytosis, WBC 11.6 mild Hemoglobin 14.1/hematocrit 43.5/MCV 96.1 neutrophil 9.9 PT 11.5, INR 1.1, PTT 22.7. Chemistry: Sodium 139, potassium 5.4 mildly elevated patient was taken potassium at home and we discontinued that on yesterday the Monday. His carbon dioxide 18 indicating metabolic acidosis secondary to acute kidney injury with renal failure and will obtain ABGs. His BUN 105, creatinine 11.6 to, GFR 4 which indicating acute kidney injury with renal failure probably secondary to prostate obstruction with obstructive uropathy. Magnesium 2.4 mildly elevated. Liver enzyme was normal including the alkaline phosphatase and troponin and albumin as well as total protein UA: PH of 5.5, trace blood and RBCs 7 which is elevated . Negative nitrite, negative leukocyte Coronavirus PCR detected Influenza A and B not detected. Investigations in the ER Abdomen and pelvis CT Brain CT Chest x-ray Renal ultrasound. Assessment: #1 RAUL acute kidney injury #2 obstructive uropathy with accumulation of the urine and unable to urinate probably progressive, no hydronephrosis no stone found. #3 leukocytosis with no evidence of urine infection #4 metabolic acidosis secondary to acute kidney injury #5 dehydration with hyperkalemia #6 Covid-19, coronavirus detected by testing PCR, patient received monoclonal I V, patient did not have no vaccination. #7 prostatic enlargement progressive to cause obstruction. Rule out malignancy #8 hematuria probably secondary to enlarged prostate 9 generalized weakness with inability to walk. #10 history of CVA in the past with the progressive speech disturbance. #11 GERD disease. Plan: #[address] Mehta #[address] Buitrago #3 continue with the Hernandez catheter with a history of obstructive uropathy. #4 with a metabolic acidosis secondary to renal failure was start sodium bicarb orally #5 continue hydration and repeat the laboratory. Tell seen by the nephrology and urology. #6 obtain pro-calcitonin, sed rate, CRP, LDH, d-dimer #7 heparin 5000 subcu every 12 hour for DVT prophylaxis. Past Medical History Past Medical History: Eye Disorder, Osteoarthritis (OA) Additional Past Medical History / Comment(s): glaucoma, History of Any Multi-Drug Resistant Organisms: C-DIFF Date of last positivie culture/infection: 05/02/2021 MDRO Source:: Stool Past Surgical History: Cholecystectomy, Joint Replacement Additional Past Surgical History / Comment(s): right hip replaced, cataract surg. Past Anesthesia/Blood Transfusion Reactions: No Reported Reaction Past Psychological History: No Psychological Hx Reported Smoking Status: Never smoker Past Alcohol Use History: None Reported Past Drug Use History: None Reported - Past Family History Mother Family Medical History: No Reported History Father Family Medical History: No Reported History Medications and Allergies Home Medications Medication Instructions Recorded Confirmed Type Timolol/Brimonidin/Dorzolam/Pf 1 drop BOTH EYES BID 05/02/21 02/19/22 History [Timolol 0.5%/Brim 0.15%/Dorzolam 2% Ophth Soln] Aspirin 81 mg PO DAILY tab 05/06/21 02/19/22 Rx Pantoprazole [Protonix] 40 mg PO AC-BRKFST #60 tab 05/06/21 02/19/22 Rx Acetaminophen [Tylenol Arthritis] 650 mg PO Q12H PRN 02/19/22 02/19/22 History Carboxymethylcellulose Sodium 1 drop BOTH EYES Q4H PRN 02/19/22 02/19/22 History [Refresh Tears] Cholecalciferol [Vitamin D3 (25 25 mcg PO DAILY 02/19/22 02/19/22 History Mcg = 1000 Iu)] Potassium Gluconate [Potassium 99 mg PO DAILY 02/19/22 02/19/22 History Gluconate ER] Allergies Allergy/AdvReac Type Severity Reaction Status Date / Time No Known Allergies Allergy Verified 02/19/22 14:03 Physical Exam Vitals: Vital Signs Temp Pulse Resp BP Pulse Ox 02/19/22 16:14 88 18 104/50 98 02/19/22 13:27 92 18 111/63 96 02/19/22 12:05 98 F 93 18 129/74 99 Intake and Output 02/19/22 02/19/22 02/19/22 06:59 14:59 22:59 Output Total 2079 Balance -2079 Output: Urine 2080 Uretheral (Hernandez) 500 Other: Weight 72.575 kg Results CBC & Chem 7: 02/19/22 12:31 02/19/22 12:31 Labs: Abnormal Lab Results - Last 24 Hours (Table) 02/19/22 02/19/22 02/19/22 Range/Units 12:31 12:31 12:31 WBC 11.6 H (3.8-10.6) k/uL Neutrophils # 9.9 H (1.3-7.7) k/uL Lymphocytes # 0.8 L (1.0-4.8) k/uL Potassium 5.4 H (3.5-5.1) mmol/L Carbon Dioxide 18 L (22-30) mmol/L BUN 105 H* (9-20) mg/dL Creatinine 11.62 H* (0.66-1.25) mg/dL Glucose 158 H (74-99) mg/dL Plasma Lactic Acid John 2.5 H* (0.7-2.0) mmol/L Magnesium 2.4 H (1.6-2.3) mg/dL Urine Blood (Negative) Urine RBC (0-5) /hpf Urine Bacteria (None) /hpf Urine Mucus (None) /hpf Coronavirus (PCR) (Not Detectd) 02/19/22 02/19/22 Range/Units 12:42 12:54 WBC (3.8-10.6) k/uL Neutrophils # (1.3-7.7) k/uL Lymphocytes # (1.0-4.8) k/uL Potassium (3.5-5.1) mmol/L Carbon Dioxide (22-30) mmol/L BUN (9-20) mg/dL Creatinine (0.66-1.25) mg/dL Glucose (74-99) mg/dL Plasma Lactic Acid John (0.7-2.0) mmol/L Magnesium (1.6-2.3) mg/dL Urine Blood Trace H (Negative) Urine RBC 7 H (0-5) /hpf Urine Bacteria Rare H (None) /hpf Urine Mucus Rare H (None) /hpf Coronavirus (PCR) Detected A (Not Detectd)
[2022-02-19 17:55] LABS: C Reactive Protein 7.1 mg/dL (<1.0)
[2022-02-19] MEDS: HEPARIN SODIUM,PORCINE/PF 5,000 UNIT/0.5 ML SYRINGE SQ SCH (17:55)
[2022-02-19 21:52] LABS: African American GFR (CKD) 13 (>60 ml/min/1.73 sqM); Anion Gap 7 mmol/L; Blood Urea Nitrogen 72 mg/dL (9-20); Carbon Dioxide 22 mmol/L (22-30); Chloride 112 mmol/L (98-107); Glucose 112 mg/dL (74-99); Non-African American GFR(CKD) 11 (>60 ml/min/1.73 sqM); Potassium 4.1 mmol/L (3.5-5.1); Sodium 141 mmol/L (137-145)
[2022-02-19] MEDS: SODIUM BICARBONATE TAB 650 MG TAB PO SCH (22:06)
[2022-02-19] MEDS: ACETAMINOPHEN TAB 325 MG TAB PO PRN (22:06)
[2022-02-19] MEDS: TIMOLOL 0.5% OPHTH DROPS 5 ML BTL BOTH EYES SCH (22:07)
[2022-02-19] MEDS: BRIMONIDINE TARTRATE 0.2% DROPS 5 ML BTL BOTH EYES SCH (22:07)
[2022-02-19] MEDS: DORZOLAMIDE HCL 2% DROPS 10 ML BTL BOTH EYES SCH (22:07)
[2022-02-20] MEDS: HEPARIN SODIUM,PORCINE/PF 5,000 UNIT/0.5 ML SYRINGE SQ SCH ×2 (09:12→15:00)
[2022-02-20] MEDS: ASPIRIN 81 MG PO SCH (09:12)
[2022-02-20] MEDS: PANTOPRAZOLE 40 MG TABLET PO SCH (09:12)
[2022-02-20] MEDS: DORZOLAMIDE HCL 2% DROPS 10 ML BTL BOTH EYES SCH ×2 (09:12→20:37)
[2022-02-20] MEDS: CHOLECALCIFEROL 25 MCG (1000 IU) TABLET PO SCH (09:12)
[2022-02-20] MEDS: SODIUM BICARBONATE TAB 650 MG TAB PO SCH ×2 (09:12→20:37)
[2022-02-20] MEDS: TIMOLOL 0.5% OPHTH DROPS 5 ML BTL BOTH EYES SCH ×2 (09:13→20:37)
[2022-02-20] MEDS: BRIMONIDINE TARTRATE 0.2% DROPS 5 ML BTL BOTH EYES SCH ×2 (09:14→20:38)
[2022-02-20] MEDS ORDERED: SODIUM CHLORIDE 0.9% 1,000 ML IV SCH (09:15)
--- NOTE | 2022-02-20 09:57 | P.NPCON ---
History of Present Illness - Reason for Consult acute renal failure - History of Present Illness Reason for consultation: Acute kidney injury History of present illness: Patient is a 81-year-old male seen in renal consultation for acute kidney injury. Creatinine was 11.62 on admission. Patient was noted to be severe urinary retention. Hernandez catheter was placed in the ER with over 1 L of urine obtained. Creatinine yesterday evening was down to 4.71. Urine output has been over 4 L since admission. Patient's baseline creatinine is near 1. Patient's currently sitting up in bed. She presented with worsening weakness noted by the family members. Patient was weaker and wasn't ambulating the way he normally does. Patient denies vomiting or diarrhea but his oral intake has been poor. Patient lives by himself. Afebrile. Blood pressure has been fairly stable with lowest reading being 91/51. He is receiving IV fluids. He did test positive for coronavirus. No history of diabetes. I don't see any nonsteroidals and his home medication list. Vital signs are stable. General: Awake. No acute distress. HEENT: Head exam is unremarkable. LUNGS: Breath sounds decreased. HEART: Rate and Rhythm are regular. ABDOMEN: Soft, no distention. EXTREMITITES: No edema. Past Medical History Past Medical History: Eye Disorder, Osteoarthritis (OA) Additional Past Medical History / Comment(s): glaucoma, History of Any Multi-Drug Resistant Organisms: C-DIFF Date of last positivie culture/infection: 05/02/2021 MDRO Source:: Stool Past Surgical History: Cholecystectomy, Joint Replacement Additional Past Surgical History / Comment(s): right hip replaced, cataract surg. Past Anesthesia/Blood Transfusion Reactions: No Reported Reaction Past Psychological History: No Psychological Hx Reported Smoking Status: Never smoker Past Alcohol Use History: None Reported Past Drug Use History: None Reported - Past Family History Mother Family Medical History: No Reported History Father Family Medical History: No Reported History Medications and Allergies Home Medications Medication Instructions Recorded Confirmed Type Timolol/Brimonidin/Dorzolam/Pf 1 drop BOTH EYES BID 05/02/21 02/19/22 History [Timolol 0.5%/Brim 0.15%/Dorzolam 2% Ophth Soln] Aspirin 81 mg PO DAILY tab 05/06/21 02/19/22 Rx Pantoprazole [Protonix] 40 mg PO AC-BRKFST #60 tab 05/06/21 02/19/22 Rx Acetaminophen [Tylenol Arthritis] 650 mg PO Q12H PRN 02/19/22 02/19/22 History Carboxymethylcellulose Sodium 1 drop BOTH EYES Q4H PRN 02/19/22 02/19/22 History [Refresh Tears] Cholecalciferol [Vitamin D3 (25 25 mcg PO DAILY 02/19/22 02/19/22 History Mcg = 1000 Iu)] Potassium Gluconate [Potassium 99 mg PO DAILY 02/19/22 02/19/22 History Gluconate ER] Allergies Allergy/AdvReac Type Severity Reaction Status Date / Time No Known Allergies Allergy Verified 02/19/22 14:03 Physical Exam Vitals: Vital Signs Temp Pulse Pulse Resp BP BP Pulse Ox 02/20/22 05:45 98.3 F 76 17 121/69 98 02/20/22 02:28 100/58 02/20/22 02:00 98.2 F 69 17 91/51 99 02/19/22 20:00 87 18 02/19/22 19:21 98.8 F 87 18 127/70 97 02/19/22 18:00 97.6 F 72 18 155/95 96 02/19/22 17:27 98.5 F 82 18 122/63 99 02/19/22 16:14 88 18 104/50 98 02/19/22 13:27 92 18 111/63 96 02/19/22 12:05 98 F 93 18 129/74 99 Intake and Output 02/19/22 02/20/22 02/20/22 22:59 06:59 14:59 Intake Total 240 Output Total 940 1400 Balance -700 -1400 Intake: Oral 240 Output: Urine 940 1400 Other: Voiding Method Indwelling Catheter Weight 72.575 kg Results - Lab Results Most recent lab results ABG pH 7.41 (7.35-7.45) 02/19/22 16:58 ABG pCO2 31 mmHg (35-45) L 02/19/22 16:58 ABG pO2 95 mmHg (83-108) 02/19/22 16:58 ABG HCO3 20 mmol/L (21-25) L 02/19/22 16:58 ABG O2 Saturation 98.4 % (94-97) H 02/19/22 16:58 Calcium 9.0 mg/dL (8.4-10.2) 02/19/22 21:29 Magnesium 2.4 mg/dL (1.6-2.3) H 02/19/22 12:31 02/19/22 12:31 02/19/22 21:29 Assessment and Plan Plan: Assessment: 1. Acute kidney injury secondary to urinary retention. Creatinine was 11 on admission and was down to 4.7 as of last night. Baseline creatinine near 1. No proteinuria on UA. 2. Urinary retention status post Hernandez catheter placement. No hydronephrosis noted on CAT scan. 3. Metabolic acidosis secondary to acute kidney injury. Improved. On oral bicarbonate. Plan: Decrease rate of normal saline to 75 mL an hour. Maintain Hernandez catheter. Add Flomax. Urology consulted. Continue to monitor renal function and urine output. Morning labs pending. Thank you for the consultation. I'll continue to follow the patient with you during his hospital stay.
[2022-02-20] MEDS: TAMSULOSIN 0.4 MG CAP.ER.24H PO SCH (10:44)
[2022-02-20 11:52] LABS: Basophils # (A) 0.04 X 10*3/uL (0.00-0.10); Basophils % (A) 0.6 %; Eosinophils # (A) 0.14 X 10*3/uL (0.04-0.35); Eosinophils % (A) 2.3 %; HCT 34.7 % (39.6-50.0); HGB 10.8 g/dL (13.0-17.0); Immature Grans, Automated 0.3 %; Lymphocytes # (A) 1.14 X 10*3/uL (0.90-5.00); Lymphocytes % (A) 18.5 %; MCH 29.8 pg (27.0-32.0); MCHC 31.1 g/dL (32.0-37.0); MCV 95.6 fL (80.0-97.0); Mean Platelet Volume 10.3 fL (9.5-12.2); Monocytes # (A) 0.75 X 10*3/uL (0.20-1.00); Monocytes % (A) 12.2 %; NRBC Per 100 WBC 0 /100 WBCS (0.0-0.0); Neutrophils # (A) 4.08 X 10*3/uL (1.80-7.70); Neutrophils % (A) 66.1 %; Platelet Count 136 X 10*3/uL (140-440); RBC 3.63 X 10*6/uL (4.40-5.60); RDW 13.2 % (11.5-14.5); WBC 6.17 X 10*3/uL (4.50-10.00)
--- NOTE | 2022-02-20 12:03 | P.GSCN ---
History of Present Illness Consult date: 02/20/22 History of present illness: 81-year-old gentleman in the hospital for progressive weakness. He is status post stroke. He was found to be in urine retention with over 1500 mL of urine. He is found to have acute renal failure. There is no hydronephrosis on ultrasound or CAT scan. The patient has a known history of enlarged prostate but has not needed treatment for this today. The patient is interviewed at the bedside. His responses are slow probably due to the previous stroke. The responses are simply answered but appropriate. He does admit to constipation in the last several days. He is not on any new medications. He is placed on tamsulosin in the hospital but was not previously. He denies previously seen a urologist. Review of Systems All systems: negative - Constitutional Denies fever, Denies weight loss - EENT Eyes: denies blurred vision Ears, nose, mouth and throat: Denies dysphagia - Cardiovascular Denies chest pain, Denies shortness of breath - Respiratory Denies cough, Denies 7 - Gastrointestinal Reports as per HPI - Genitourinary Denies dysuria, Denies hematuria - Integumentary Denies rash, Denies unusual bruising - Neurological Denies headaches, Denies syncope - Hematologic/Lymphatic Denies easy bleeding, Denies easy bruising Past Medical History Past Medical History: Eye Disorder, Osteoarthritis (OA) Additional Past Medical History / Comment(s): glaucoma, History of Any Multi-Drug Resistant Organisms: C-DIFF Year Discovered:: 05/02/2021 MDRO Source:: Stool Past Surgical History: Cholecystectomy, Joint Replacement Additional Past Surgical History / Comment(s): right hip replaced, cataract surg. Past Anesthesia/Blood Transfusion Reactions: No Reported Reaction Past Psychological History: No Psychological Hx Reported Smoking Status: Never smoker Past Alcohol Use History: None Reported Past Drug Use History: None Reported - Past Family History Mother Family Medical History: No Reported History Father Family Medical History: No Reported History Medications and Allergies Home Medications Medication Instructions Recorded Confirmed Type Timolol/Brimonidin/Dorzolam/Pf 1 drop BOTH EYES BID 05/02/21 02/19/22 History [Timolol 0.5%/Brim 0.15%/Dorzolam 2% Ophth Soln] Aspirin 81 mg PO DAILY tab 05/06/21 02/19/22 Rx Pantoprazole [Protonix] 40 mg PO AC-BRKFST #60 tab 05/06/21 02/19/22 Rx Acetaminophen [Tylenol Arthritis] 650 mg PO Q12H PRN 02/19/22 02/19/22 History Carboxymethylcellulose Sodium 1 drop BOTH EYES Q4H PRN 02/19/22 02/19/22 History [Refresh Tears] Cholecalciferol [Vitamin D3 (25 25 mcg PO DAILY 02/19/22 02/19/22 History Mcg = 1000 Iu)] Potassium Gluconate [Potassium 99 mg PO DAILY 02/19/22 02/19/22 History Gluconate ER] Allergies Allergy/AdvReac Type Severity Reaction Status Date / Time No Known Allergies Allergy Verified 02/19/22 14:03 Surgical - Exam Vital Signs Temp Pulse Resp BP Pulse Ox 98 F 93 18 129/74 99 02/19/22 12:05 02/19/22 12:05 02/19/22 12:05 02/19/22 12:05 02/19/22 12:05 - General well developed, well nourished, no distress - Eyes PERRL - ENT no hearing loss - Neck no masses - Respiratory normal expansion, normal respiratory effort - Cardiovascular Rhythm: regular - Abdomen Abdomen: soft, non tender - Genitourinary Indwelling catheter. Testes descended. Prostate 30 g. b 9. Notable constipation and fecal impaction - Integumentary no rash, no growths - Neurologic normal sensation - Musculoskeletal normal posture - Psychiatric Speech is slow and somewhat a phasic but appropriate oriented to time, oriented to person, oriented to place Results - Labs 02/20/22 07:06 02/19/22 21:29 Abnormal Lab Results - Last 24 Hours (Table) 02/19/22 02/19/22 02/19/22 Range/Units 12:31 12:31 12:31 WBC 11.6 H (3.8-10.6) k/uL RBC (4.40-5.60) X 10*6/uL Hgb (13.0-17.0) g/dL Hct (39.6-50.0) % MCHC (32.0-37.0) g/dL Plt Count (140-440) X 10*3/uL Neutrophils # 9.9 H (1.3-7.7) k/uL Lymphocytes # 0.8 L (1.0-4.8) k/uL ESR (0-15) mm/hr D-Dimer (<0.60) mg/L FEU ABG pCO2 (35-45) mmHg ABG HCO3 (21-25) mmol/L ABG O2 Saturation (94-97) % Potassium 5.4 H (3.5-5.1) mmol/L Chloride (98-107) mmol/L Carbon Dioxide 18 L (22-30) mmol/L BUN 105 H* (9-20) mg/dL Creatinine 11.62 H* (0.66-1.25) mg/dL Glucose 158 H (74-99) mg/dL Plasma Lactic Acid John 2.5 H* (0.7-2.0) mmol/L Magnesium 2.4 H (1.6-2.3) mg/dL Troponin I (0.000-0.034) ng/mL C-Reactive Protein (<1.0) mg/dL Procalcitonin (0.02-0.09) ng/mL Urine Blood (Negative) Urine RBC (0-5) /hpf Urine Bacteria (None) /hpf Urine Mucus (None) /hpf Coronavirus (PCR) (Not Detectd) 02/19/22 02/19/22 02/19/22 Range/Units 12:42 12:54 16:58 WBC (3.8-10.6) k/uL RBC (4.40-5.60) X 10*6/uL Hgb (13.0-17.0) g/dL Hct (39.6-50.0) % MCHC (32.0-37.0) g/dL Plt Count (140-440) X 10*3/uL Neutrophils # (1.3-7.7) k/uL Lymphocytes # (1.0-4.8) k/uL ESR (0-15) mm/hr D-Dimer (<0.60) mg/L FEU ABG pCO2 31 L (35-45) mmHg ABG HCO3 20 L (21-25) mmol/L ABG O2 Saturation 98.4 H (94-97) % Potassium (3.5-5.1) mmol/L Chloride (98-107) mmol/L Carbon Dioxide (22-30) mmol/L BUN (9-20) mg/dL Creatinine (0.66-1.25) mg/dL Glucose (74-99) mg/dL Plasma Lactic Acid John (0.7-2.0) mmol/L Magnesium (1.6-2.3) mg/dL Troponin I (0.000-0.034) ng/mL C-Reactive Protein (<1.0) mg/dL Procalcitonin (0.02-0.09) ng/mL Urine Blood Trace H (Negative) Urine RBC 7 H (0-5) /hpf Urine Bacteria Rare H (None) /hpf Urine Mucus Rare H (None) /hpf Coronavirus (PCR) Detected A (Not Detectd) 02/19/22 02/19/22 02/19/22 Range/Units 17:30 17:30 17:30 WBC (3.8-10.6) k/uL RBC (4.40-5.60) X 10*6/uL Hgb (13.0-17.0) g/dL Hct (39.6-50.0) % MCHC (32.0-37.0) g/dL Plt Count (140-440) X 10*3/uL Neutrophils # (1.3-7.7) k/uL Lymphocytes # (1.0-4.8) k/uL ESR 35 H (0-15) mm/hr D-Dimer (<0.60) mg/L FEU ABG pCO2 (35-45) mmHg ABG HCO3 (21-25) mmol/L ABG O2 Saturation (94-97) % Potassium (3.5-5.1) mmol/L Chloride (98-107) mmol/L Carbon Dioxide (22-30) mmol/L BUN (9-20) mg/dL Creatinine (0.66-1.25) mg/dL Glucose (74-99) mg/dL Plasma Lactic Acid John (0.7-2.0) mmol/L Magnesium (1.6-2.3) mg/dL Troponin I 0.041 H* (0.000-0.034) ng/mL C-Reactive Protein (<1.0) mg/dL Procalcitonin 0.12 H (0.02-0.09) ng/mL Urine Blood (Negative) Urine RBC (0-5) /hpf Urine Bacteria (None) /hpf Urine Mucus (None) /hpf Coronavirus (PCR) (Not Detectd) 02/19/22 02/19/22 02/19/22 Range/Units 17:30 21:29 21:29 WBC (3.8-10.6) k/uL RBC (4.40-5.60) X 10*6/uL Hgb (13.0-17.0) g/dL Hct (39.6-50.0) % MCHC (32.0-37.0) g/dL Plt Count (140-440) X 10*3/uL Neutrophils # (1.3-7.7) k/uL Lymphocytes # (1.0-4.8) k/uL ESR (0-15) mm/hr D-Dimer (<0.60) mg/L FEU ABG pCO2 (35-45) mmHg ABG HCO3 (21-25) mmol/L ABG O2 Saturation (94-97) % Potassium (3.5-5.1) mmol/L Chloride 112 H (98-107) mmol/L Carbon Dioxide (22-30) mmol/L BUN 72 H (9-20) mg/dL Creatinine 4.71 H (0.66-1.25) mg/dL Glucose 112 H (74-99) mg/dL Plasma Lactic Acid John (0.7-2.0) mmol/L Magnesium (1.6-2.3) mg/dL Troponin I 0.043 H* (0.000-0.034) ng/mL C-Reactive Protein 7.1 H (<1.0) mg/dL Procalcitonin (0.02-0.09) ng/mL Urine Blood (Negative) Urine RBC (0-5) /hpf Urine Bacteria (None) /hpf Urine Mucus (None) /hpf Coronavirus (PCR) (Not Detectd) 02/19/22 02/20/22 Range/Units 21:29 07:06 WBC (3.8-10.6) k/uL RBC 3.63 L (4.40-5.60) X 10*6/uL Hgb 10.8 L (13.0-17.0) g/dL Hct 34.7 L (39.6-50.0) % MCHC 31.1 L (32.0-37.0) g/dL Plt Count 136 L (140-440) X 10*3/uL Neutrophils # (1.3-7.7) k/uL Lymphocytes # (1.0-4.8) k/uL ESR (0-15) mm/hr D-Dimer >34.10 H (<0.60) mg/L FEU ABG pCO2 (35-45) mmHg ABG HCO3 (21-25) mmol/L ABG O2 Saturation (94-97) % Potassium (3.5-5.1) mmol/L Chloride (98-107) mmol/L Carbon Dioxide (22-30) mmol/L BUN (9-20) mg/dL Creatinine (0.66-1.25) mg/dL Glucose (74-99) mg/dL Plasma Lactic Acid John (0.7-2.0) mmol/L Magnesium (1.6-2.3) mg/dL Troponin I (0.000-0.034) ng/mL C-Reactive Protein (<1.0) mg/dL Procalcitonin (0.02-0.09) ng/mL Urine Blood (Negative) Urine RBC (0-5) /hpf Urine Bacteria (None) /hpf Urine Mucus (None) /hpf Coronavirus (PCR) (Not Detectd) Diabetes panel 02/19/22 02/19/22 02/19/22 Range/Units 12:31 17:30 21:29 Sodium 139 141 (137-145) mmol/L Potassium 5.4 H 4.1 (3.5-5.1) mmol/L Chloride 102 112 H (98-107) mmol/L Carbon Dioxide 18 L 22 (22-30) mmol/L BUN 105 H* 72 H (9-20) mg/dL Creatinine 11.62 H* 4.71 H (0.66-1.25) mg/dL Glucose 158 H 112 H (74-99) mg/dL Hemoglobin A1c 5.3 (0.0-6.0) % Calcium 10.2 9.0 (8.4-10.2) mg/dL AST 50 (17-59) U/L ALT 24 (4-49) U/L Alkaline Phosphatase 73 (38-126) U/L Total Protein 7.8 (6.3-8.2) g/dL Albumin 4.4 (3.5-5.0) g/dL Calcium panel 02/19/22 02/19/22 Range/Units 12:31 21:29 Calcium 10.2 9.0 (8.4-10.2) mg/dL Albumin 4.4 (3.5-5.0) g/dL Pituitary panel 02/19/22 02/19/22 Range/Units 12:31 21:29 Sodium 139 141 (137-145) mmol/L Potassium 5.4 H 4.1 (3.5-5.1) mmol/L Chloride 102 112 H (98-107) mmol/L Carbon Dioxide 18 L 22 (22-30) mmol/L BUN 105 H* 72 H (9-20) mg/dL Creatinine 11.62 H* 4.71 H (0.66-1.25) mg/dL Glucose 158 H 112 H (74-99) mg/dL Calcium 10.2 9.0 (8.4-10.2) mg/dL Adrenal panel 02/19/22 02/19/22 Range/Units 12:31 21:29 Sodium 139 141 (137-145) mmol/L Potassium 5.4 H 4.1 (3.5-5.1) mmol/L Chloride 102 112 H (98-107) mmol/L Carbon Dioxide 18 L 22 (22-30) mmol/L BUN 105 H* 72 H (9-20) mg/dL Creatinine 11.62 H* 4.71 H (0.66-1.25) mg/dL Glucose 158 H 112 H (74-99) mg/dL Calcium 10.2 9.0 (8.4-10.2) mg/dL Total Bilirubin 1.3 (0.2-1.3) mg/dL AST 50 (17-59) U/L ALT 24 (4-49) U/L Alkaline Phosphatase 73 (38-126) U/L Total Protein 7.8 (6.3-8.2) g/dL Albumin 4.4 (3.5-5.0) g/dL - Imaging CT scan - abdomen: report reviewed, image reviewed CT scan - pelvis: report reviewed, image reviewed US - kidney/bladder: report reviewed, image reviewed Assessment and Plan Assessment: Impression: Urine retention probably secondary to constipation aggravated by BPH. Weakness of indeterminate etiology. Acute renal failure possibly due to urine retention Recommendations: I have instructed the nursing staff to try to evacuate his bowels. After that we can give him a voiding trial in the next 48 hours of. He should stay on the tamsulosin. We'll follow with you.
[2022-02-20] MEDS ORDERED: bisacodyL 10 MG SUPP RECTAL STA (12:22)
[2022-02-20] MEDS: bisacodyL 5 MG TABLET.DR PO PRN (12:59)
--- NOTE | 2022-02-20 13:09 | P.PN ---
Subjective Progress Note Date: 02/20/22 Principal diagnosis: Diagnosis #1 acute kidney injury secondary to urinary retention #2 enlarged prostate with the obstructive uropathy #3 no evidence of hydronephrosis. #4 generalized weakness #5 history of CVA in the past affecting speech and use walker for walking. #6 metabolic acidosis #7 dehydration severe with dehydration drop of hemoglobin from 14. today 10.8 #8 lactic acidosis resolved #9 elevated d-dimer more than 34.10, elevated sed rate 35. CO2 on admission 18 started on sodium bicarb #10 elevated troponin 0.041 0.043, C-reactive protein 7.1, pro calcitonin 0.12 elevated marker probably secondary to overt coronavirus positive testing. #11 hematuria with negative leukocyte esterase, and nitrite. RBCs 7. This is a prognosis note Date of service 02/20/2022 Dictation by Patient seen and evaluated [id number] No chest pain no shortness of breath however he has elevated troponin and elevated d-dimer with the probability due to acute kidney injury however we consulted the cardiology to evaluate and advise. Lactic acidosis has been resolved with the 2.5 and a follow-up with hydration 1.7. All marker checked with the in the elevation secondary to Magan and place on isolation. As well patient received in the ER Bebtelvimab 175 mg 2 mL vial IV. Patient on heparin subcu every 12 hours Patient seen by nephrology and urology today. Chemistry this morning not available however creatinine was 4.71 lost night improved initially was 11.62 in the ER. PSA not available. LDH is normal, hemoglobin A1c 5.3 was no history of diabetes. Patient in bed conscious alert able to communicate with speech slurred with the previous CVA. Able to eat and swallow but need integration assistant. Vital sign indicate the Lee 90 8.4F exemplary. And the pulse 70 bpm regular sinus and the blood pressure 106/65 with a mean blood pressure 78 Oxygen saturation 98%. HEENT negative and he had natural teas able to hear but impaired Neck was supple no JVD no thyromegaly no lymphadenopathy trachea midline. Chest is clear to auscultation and percussion Heart was regular sinus rhythm no chest pain. The abdomen soft. Bowel sounds no tenderness. And his name complained y esterday on admission to the ER that he could not urinate and he was probably selected with the enlargement prostate. Extremities no edema and positive pulses. Neurologically stable no new event with generalized weakness. Assessment and plan #1 acute kidney injury probably secondary to urinary retention with gradual improvement. Laboratory #2 with a mean symptoms inability to urinate with the obstructive uropathy could be secondary to the prostate and PSA was not available urology consult was done today #3 no evidence of hypertension, no evidence of diabetes mellitus, no evidence of the stone. #4 severe dehydration gradual improvement #5 coronavirus was positive PCR for Covid-19 and positive markers as well. #6 we'll obtain CBC tomorrow and BMP #7 anemia with drop of the hemoglobin as mentioned above with the hydration probably with chronic disease #8 hematuria with the RBCs in the urine however possibility of due to Hernandez catheter with unknown if the urine analysis done before or after the placement of the Hernandez catheter. Objective - Vital Signs Vital signs: Vital Signs Temp 98.4 F 02/20/22 10:00 Pulse 70 02/20/22 10:00 Resp 17 02/20/22 05:45 BP 106/65 02/20/22 10:00 Pulse Ox 98 02/20/22 10:00 FiO2 Intake & Output 02/19/22 02/20/22 02/20/22 18:59 06:59 18:59 Intake Total 240 Output Total 3020 1400 900 Balance -2780 -1400 -900 Weight 72.575 kg Intake: Oral 240 Output: Urine 3020 1400 900 Uretheral (Hernandez) 500 Other: Voiding Method Indwelling Catheter - Labs CBC & Chem 7: 02/20/22 07:06 02/19/22 21:29 Labs: Abnormal Lab Results - Last 24 Hours (Table) 02/19/22 02/19/22 02/19/22 Range/Units 12:31 12:31 12:31 WBC 11.6 H (3.8-10.6) k/uL RBC (4.40-5.60) X 10*6/uL Hgb (13.0-17.0) g/dL Hct (39.6-50.0) % MCHC (32.0-37.0) g/dL Plt Count (140-440) X 10*3/uL Neutrophils # 9.9 H (1.3-7.7) k/uL Lymphocytes # 0.8 L (1.0-4.8) k/uL ESR (0-15) mm/hr D-Dimer (<0.60) mg/L FEU ABG pCO2 (35-45) mmHg ABG HCO3 (21-25) mmol/L ABG O2 Saturation (94-97) % Potassium 5.4 H (3.5-5.1) mmol/L Chloride (98-107) mmol/L Carbon Dioxide 18 L (22-30) mmol/L BUN 105 H* (9-20) mg/dL Creatinine 11.62 H* (0.66-1.25) mg/dL Glucose 158 H (74-99) mg/dL Plasma Lactic Acid John 2.5 H* (0.7-2.0) mmol/L Magnesium 2.4 H (1.6-2.3) mg/dL Troponin I (0.000-0.034) ng/mL C-Reactive Protein (<1.0) mg/dL Procalcitonin (0.02-0.09) ng/mL Urine Blood (Negative) Urine RBC (0-5) /hpf Urine Bacteria (None) /hpf Urine Mucus (None) /hpf Coronavirus (PCR) (Not Detectd) 02/19/22 02/19/22 02/19/22 Range/Units 12:42 12:54 16:58 WBC (3.8-10.6) k/uL RBC (4.40-5.60) X 10*6/uL Hgb (13.0-17.0) g/dL Hct (39.6-50.0) % MCHC (32.0-37.0) g/dL Plt Count (140-440) X 10*3/uL Neutrophils # (1.3-7.7) k/uL Lymphocytes # (1.0-4.8) k/uL ESR (0-15) mm/hr D-Dimer (<0.60) mg/L FEU ABG pCO2 31 L (35-45) mmHg ABG HCO3 20 L (21-25) mmol/L ABG O2 Saturation 98.4 H (94-97) % Potassium (3.5-5.1) mmol/L Chloride (98-107) mmol/L Carbon Dioxide (22-30) mmol/L BUN (9-20) mg/dL Creatinine (0.66-1.25) mg/dL Glucose (74-99) mg/dL Plasma Lactic Acid John (0.7-2.0) mmol/L Magnesium (1.6-2.3) mg/dL Troponin I (0.000-0.034) ng/mL C-Reactive Protein (<1.0) mg/dL Procalcitonin (0.02-0.09) ng/mL Urine Blood Trace H (Negative) Urine RBC 7 H (0-5) /hpf Urine Bacteria Rare H (None) /hpf Urine Mucus Rare H (None) /hpf Coronavirus (PCR) Detected A (Not Detectd) 02/19/22 02/19/22 02/19/22 Range/Units 17:30 17:30 17:30 WBC (3.8-10.6) k/uL RBC (4.40-5.60) X 10*6/uL Hgb (13.0-17.0) g/dL Hct (39.6-50.0) % MCHC (32.0-37.0) g/dL Plt Count (140-440) X 10*3/uL Neutrophils # (1.3-7.7) k/uL Lymphocytes # (1.0-4.8) k/uL ESR 35 H (0-15) mm/hr D-Dimer (<0.60) mg/L FEU ABG pCO2 (35-45) mmHg ABG HCO3 (21-25) mmol/L ABG O2 Saturation (94-97) % Potassium (3.5-5.1) mmol/L Chloride (98-107) mmol/L Carbon Dioxide (22-30) mmol/L BUN (9-20) mg/dL Creatinine (0.66-1.25) mg/dL Glucose (74-99) mg/dL Plasma Lactic Acid John (0.7-2.0) mmol/L Magnesium (1.6-2.3) mg/dL Troponin I 0.041 H* (0.000-0.034) ng/mL C-Reactive Protein (<1.0) mg/dL Procalcitonin 0.12 H (0.02-0.09) ng/mL Urine Blood (Negative) Urine RBC (0-5) /hpf Urine Bacteria (None) /hpf Urine Mucus (None) /hpf Coronavirus (PCR) (Not Detectd) 02/19/22 02/19/22 02/19/22 Range/Units 17:30 21:29 21:29 WBC (3.8-10.6) k/uL RBC (4.40-5.60) X 10*6/uL Hgb (13.0-17.0) g/dL Hct (39.6-50.0) % MCHC (32.0-37.0) g/dL Plt Count (140-440) X 10*3/uL Neutrophils # (1.3-7.7) k/uL Lymphocytes # (1.0-4.8) k/uL ESR (0-15) mm/hr D-Dimer (<0.60) mg/L FEU ABG pCO2 (35-45) mmHg ABG HCO3 (21-25) mmol/L ABG O2 Saturation (94-97) % Potassium (3.5-5.1) mmol/L Chloride 112 H (98-107) mmol/L Carbon Dioxide (22-30) mmol/L BUN 72 H (9-20) mg/dL Creatinine 4.71 H (0.66-1.25) mg/dL Glucose 112 H (74-99) mg/dL Plasma Lactic Acid John (0.7-2.0) mmol/L Magnesium (1.6-2.3) mg/dL Troponin I 0.043 H* (0.000-0.034) ng/mL C-Reactive Protein 7.1 H (<1.0) mg/dL Procalcitonin (0.02-0.09) ng/mL Urine Blood (Negative) Urine RBC (0-5) /hpf Urine Bacteria (None) /hpf Urine Mucus (None) /hpf Coronavirus (PCR) (Not Detectd) 02/19/22 02/20/22 Range/Units 21:29 07:06 WBC (3.8-10.6) k/uL RBC 3.63 L (4.40-5.60) X 10*6/uL Hgb 10.8 L (13.0-17.0) g/dL Hct 34.7 L (39.6-50.0) % MCHC 31.1 L (32.0-37.0) g/dL Plt Count 136 L (140-440) X 10*3/uL Neutrophils # (1.3-7.7) k/uL Lymphocytes # (1.0-4.8) k/uL ESR (0-15) mm/hr D-Dimer >34.10 H (<0.60) mg/L FEU ABG pCO2 (35-45) mmHg ABG HCO3 (21-25) mmol/L ABG O2 Saturation (94-97) % Potassium (3.5-5.1) mmol/L Chloride (98-107) mmol/L Carbon Dioxide (22-30) mmol/L BUN (9-20) mg/dL Creatinine (0.66-1.25) mg/dL Glucose (74-99) mg/dL Plasma Lactic Acid John (0.7-2.0) mmol/L Magnesium (1.6-2.3) mg/dL Troponin I (0.000-0.034) ng/mL C-Reactive Protein (<1.0) mg/dL Procalcitonin (0.02-0.09) ng/mL Urine Blood (Negative) Urine RBC (0-5) /hpf Urine Bacteria (None) /hpf Urine Mucus (None) /hpf Coronavirus (PCR) (Not Detectd)
[2022-02-20 13:59] LABS: Albumin/Globulin Ratio 1.24 (1.60-3.17); Anion Gap 11.1 mmol/L (10.00-18.00); BUN/Creat Ratio 21.87 Ratio (12.00-20.00); Blood Urea Nitrogen 42.2 mg/dL (9.0-27.0); Carbon Dioxide 21.8 mmol/L (20.0-27.5); Globulin 2.4 g/dL (1.6-3.3); Potassium 3.8 mmol/L (3.5-5.5); Total Bilirubin 0.9 mg/dL (0.30-1.20); Total Protein 5.5 g/dL (6.2-8.2)
[2022-02-20] MEDS: SODIUM CHLORIDE 0.45% 1,000 ML IV SCH (17:09)
--- NOTE | 2022-02-20 20:50 | P.CRDCN ---
History of Present Illness History of present illness: HISTORY OF PRESENTING ILLNESS Patient is a pleasant 81-year-old male with history of stroke with residual deficits and somewhat slow to answer, chronic kidney disease, hyperlipidemia. 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 He presented secondary to generalized weakness and unable to use his walker. He has been having some urinary retention and hasn't been able urinate and in the ER found to have a proximally 1700 mL urinary retention. Hernandez catheter was placed. He had acute kidney injury with initial creatinine 11.6 however improved to 1.9 today. Baseline appears 1.1 from November. Troponins mildly elevated 0.043. D-dimer elevated greater than 34. EKG showing sinus rhythm without significant ST or T wave abnormalities. Denies any previous cardiac workup, no history of CAD or stents. He denies any actual shortness breath or chest pain. REVIEW OF SYSTEMS At the time of my exam: CONSTITUTIONAL: Denies fever or chills. CARDIOVASCULAR: Denies chest pain, shortness of breath, orthopnea, PND or palpitations. RESPIRATORY: Denies cough. GASTROINTESTINAL: Denies abdominal pain, diarrhea, constipation, nausea or vomiting. MUSCULOSKELETAL: Denies myalgias. NEUROLOGIC: Denies numbness, tingling or weakness. ENDOCRINE: Denies fatigue, weight change, polydipsia or polyurina. GENITOURINARY: Denies burning, hematuria or urgency with micturation. HEMATOLOGIC: Denies history of anemia or bleeding. PHYSICAL EXAMINATION Vital signs reviewed. CONSTITUTIONAL: No apparent distress, chronically ill-appearing, slow to respond, poor insight into medical problems HEENT: Head is normocephalic. Pupils are equal, round. Sclerae anicteric. Mucous membranes of the mouth are moist. No JVD. No carotid bruit. CHEST EXAMINATION: Lungs are clear to auscultation. No chest wall tenderness is noted on palpation or with deep breathing. HEART EXAMINATION: Regular rate and rhythm. S1, S2 heard. No murmurs, gallops or rub. ABDOMEN: Soft, nontender. Positive bowel sounds. EXTREMITIES: 2+ peripheral pulses, no lower extremity edema and no calf tenderness. NEUROLOGIC EXAMINATION: Patient is awake, alert and oriented x3. ASSESSMENT 1. Non-STEMI likely type II mechanism related to COVID, RAUL 2. Acute kidney injury related to urinary retention 3. Hyperlipidemia 4. History of stroke PLAN Check limited 2-D echo for left ventricular function. Do not suspect acute coronary syndrome. Continue with aspirin. Further recommendations to follow. Past Medical History Past Medical History: Eye Disorder, Osteoarthritis (OA) Additional Past Medical History / Comment(s): glaucoma, History of Any Multi-Drug Resistant Organisms: C-DIFF Date of last positivie culture/infection: 05/02/2021 MDRO Source:: Stool Past Surgical History: Cholecystectomy, Joint Replacement Additional Past Surgical History / Comment(s): right hip replaced, cataract surg. Past Anesthesia/Blood Transfusion Reactions: No Reported Reaction Past Psychological History: No Psychological Hx Reported Smoking Status: Never smoker Past Alcohol Use History: None Reported Past Drug Use History: None Reported - Past Family History Mother Family Medical History: No Reported History Father Family Medical History: No Reported History Medications and Allergies Home Medications Medication Instructions Recorded Confirmed Type Timolol/Brimonidin/Dorzolam/Pf 1 drop BOTH EYES BID 05/02/21 02/19/22 History [Timolol 0.5%/Brim 0.15%/Dorzolam 2% Oph Soln] Aspirin 81 mg PO DAILY tab 05/06/21 02/19/22 Rx Pantoprazole [Protonix] 40 mg PO AC-BRKFST #60 tab 05/06/21 02/19/22 Rx Acetaminophen [Tylenol Arthritis] 650 mg PO Q12H PRN 02/19/22 02/19/22 History Carboxymethylcellulose Sodium 1 drop BOTH EYES Q4H PRN 02/19/22 02/19/22 History [Refresh Tears] Cholecalciferol [Vitamin D3 (25 25 mcg PO DAILY 02/19/22 02/19/22 History Mcg = 1000 Iu)] Potassium Gluconate [Potassium 99 mg PO DAILY 02/19/22 02/19/22 History Gluconate ER] Allergies Allergy/AdvReac Type Severity Reaction Status Date / Time No Known Allergies Allergy Verified 02/19/22 14:03 Physical Exam Vitals: Vital Signs Temp Pulse Resp BP Pulse Ox 02/20/22 18:00 98.0 F 85 108/64 96 02/20/22 14:00 97.7 F 82 100/60 96 02/20/22 10:00 98.4 F 70 106/65 98 02/20/22 05:45 98.3 F 76 17 121/69 98 02/20/22 02:28 100/58 02/20/22 02:00 98.2 F 69 17 91/51 99 Intake and Output 02/20/22 02/20/22 02/20/22 06:59 14:59 22:59 Intake Total 600 Output Total 1400 900 750 Balance -1400 -900 -150 Intake: Intake, IV Titration 600 Amount Sodium Chloride 0.9% 1, 600 000 ml @ 75 mls/hr IV . [id number] [facility] Rx#:[id number] Output: Urine 1400 900 750 Results 02/20/22 07:06 02/20/22 07:06 Cardiac Enzymes 02/19/22 02/20/22 Range/Units 21:29 07:06 AST 53 H (14-35) U/L Troponin I 0.043 H* (0.000-0.034) ng/mL CBC 02/20/22 Range/Units 07:06 WBC 6.17 (4.50-10.00) X 10*3/uL RBC 3.63 L (4.40-5.60) X 10*6/uL Hgb 10.8 L (13.0-17.0) g/dL Hct 34.7 L (39.6-50.0) % Plt Count 136 L (140-440) X 10*3/uL Comprehensive Metabolic Panel 02/19/22 02/20/22 Range/Units 21:29 07:06 Sodium 141 147 H (137-145) mmol/L Potassium 4.1 3.8 (3.5-5.1) mmol/L Chloride 112 H 114 H (98-107) mmol/L Carbon Dioxide 22 21.8 (22-30) mmol/L BUN 72 H 42.2 H (9-20) mg/dL Creatinine 4.71 H 1.9 H (0.66-1.25) mg/dL Glucose 112 H 95 (74-99) mg/dL Calcium 9.0 9.0 (8.4-10.2) mg/dL AST 53 H (14-35) U/L ALT 28 (10-49) U/L Alkaline Phosphatase 51 (41-126) U/L Total Protein 5.5 L (6.2-8.2) g/dL Albumin 3.0 L (3.8-4.9) g/dL Current Medications Generic Name Dose Route Start Last Admin Trade Name Freq PRN Reason Stop Dose Admin Acetaminophen 650 mg 02/19/22 15:59 02/19/22 22:06 Acetaminophen Tab 325 Mg Tab PO 650 mg Q12H PRN Administration Pain Artificial Tears 1 drops 02/19/22 14:44 Artificial Tears-Hypromellose Drops 15 Ml Btl BOTH EYES Q4H PRN dry eyes Aspirin 81 mg 02/20/22 09:00 02/20/22 09:12 Aspirin 81 Mg PO 81 mg DAILY [facility] Administration Bisacodyl 10 mg 02/20/22 12:22 02/20/22 12:59 Bisacodyl 5 Mg Tablet.Dr PO 10 mg DAILY PRN Administration Constipation Brimonidine Tartrate 1 drops 02/19/22 21:00 02/20/22 20:38 Brimonidine Tartrate 0.2% Drops 5 Ml Btl BOTH EYES 1 drops BID [facility] Administration Cholecalciferol 25 mcg 02/20/22 09:00 02/20/22 09:12 Cholecalciferol 25 Mcg (1000 Iu) Tablet PO 25 mcg DAILY [facility] Administration Dorzolamide HCl 1 drops 02/19/22 21:00 02/20/22 20:37 Dorzolamide Hcl 2% Drops 10 Ml Btl BOTH EYES 1 drops BID [facility] Administration Heparin Sodium (Porcine) 5,000 unit 02/19/22 17:30 02/20/22 15:00 Heparin Sodium,Porcine/Pf 5,000 Unit/0.5 Ml Syringe SQ 5,000 unit AC-BID [facility] Administration Sodium Chloride 1,000 mls @ 100 mls/hr 02/20/22 16:15 02/20/22 17:09 Saline 0.45% IV 100 mls/hr .Q10H [facility] Administration Naloxone HCl 0.2 mg 02/19/22 14:42 Naloxone 0.4 Mg/Ml 1 Ml Vial IV Q2M PRN Opioid Reversal Ondansetron HCl 4 mg 02/19/22 14:42 Ondansetron 4 Mg/2 Ml Vial IVP Q8HR PRN Nausea And Vomiting Pantoprazole Sodium 40 mg 02/20/22 07:30 02/20/22 09:12 Pantoprazole 40 Mg Tablet PO 40 mg AC-BRKFST [facility] Administration Sodium Bicarbonate 650 mg 02/19/22 21:00 02/20/22 20:37 Sodium Bicarbonate Tab 650 Mg Tab PO 650 mg BID [facility] Administration Tamsulosin HCl 0.4 mg 02/20/22 10:00 02/20/22 10:44 Tamsulosin 0.4 Mg Cap.Er.24h PO 0.4 mg PC-BRKFST [facility] Administration Timolol Maleate 1 drops 02/19/22 21:00 02/20/22 20:37 Timolol 0.5% Ophth Drops 5 Ml Btl BOTH EYES 1 drops BID [facility] Administration Intake and Output 02/20/22 02/20/22 02/20/22 06:59 14:59 22:59 Intake Total 600 Output Total 1400 900 750 Balance -1400 -900 -150 Intake: Intake, IV Titration 600 Amount Sodium Chloride 0.9% 1, 600 000 ml @ 75 mls/hr IV . [id number] [facility] Rx#:[id number] Output: Urine 1400 900 750 02/20/22 07:06 02/20/22 07:06
[2022-02-21] MEDS: SODIUM CHLORIDE 0.45% 1,000 ML IV SCH ×3 (05:33→23:03)
[2022-02-21] MEDS: HEPARIN SODIUM,PORCINE/PF 5,000 UNIT/0.5 ML SYRINGE SQ SCH ×2 (08:49→17:36)
[2022-02-21] MEDS: CHOLECALCIFEROL 25 MCG (1000 IU) TABLET PO SCH (08:50)
[2022-02-21] MEDS: SODIUM BICARBONATE TAB 650 MG TAB PO SCH ×2 (08:50→20:11)
[2022-02-21] MEDS: TAMSULOSIN 0.4 MG CAP.ER.24H PO SCH (08:50)
[2022-02-21] MEDS: PANTOPRAZOLE 40 MG TABLET PO SCH (08:50)
[2022-02-21] MEDS: TIMOLOL 0.5% OPHTH DROPS 5 ML BTL BOTH EYES SCH ×2 (08:50→20:16)
[2022-02-21] MEDS: ASPIRIN 81 MG PO SCH (08:50)
[2022-02-21] MEDS: DORZOLAMIDE HCL 2% DROPS 10 ML BTL BOTH EYES SCH ×2 (08:51→20:15)
[2022-02-21] MEDS: BRIMONIDINE TARTRATE 0.2% DROPS 5 ML BTL BOTH EYES SCH ×2 (08:51→20:15)
[2022-02-21 09:08] LABS: Basophils # (A) 0.04 X 10*3/uL (0.00-0.10); Basophils % (A) 0.6 %; Eosinophils % (A) 3.2 %; HCT 32.7 % (39.6-50.0); HGB 10.2 g/dL (13.0-17.0); Immature Grans, Automated 0.3 %; Lymphocytes # (A) 1.65 X 10*3/uL (0.90-5.00); Lymphocytes % (A) 26.5 %; MCH 29.8 pg (27.0-32.0); MCHC 31.2 g/dL (32.0-37.0); MCV 95.6 fL (80.0-97.0); Mean Platelet Volume 10.2 fL (9.5-12.2); Monocytes # (A) 0.69 X 10*3/uL (0.20-1.00); Monocytes % (A) 11.1 %; NRBC Per 100 WBC 0 /100 WBCS (0.0-0.0); Neutrophils # (A) 3.62 X 10*3/uL (1.80-7.70); Neutrophils % (A) 58.3 %; Platelet Count 167 X 10*3/uL (140-440); RBC 3.42 X 10*6/uL (4.40-5.60); RDW 13.2 % (11.5-14.5); WBC 6.22 X 10*3/uL (4.50-10.00)
--- NOTE | 2022-02-21 09:36 | P.PN ---
Subjective HISTORY OF PRESENTING ILLNESS Patient is a pleasant 81-year-old male with history of stroke with residual deficits and somewhat slow to answer, chronic kidney disease, hyperlipidemia. 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 We are asked to see in consultation for Elevated troponin. He presented secondary to generalized weakness and unable to use his walker. He has been having some urinary retention and hasn't been able urinate and in the ER found to have a proximally 1700 mL urinary retention. Hernandez catheter was placed. He had acute kidney injury with initial creatinine 11.6 however improved to 1.9 from labs on 02/20. Troponins mildly elevated 0.043. D-dimer elevated greater than 34. EKG revealed sinus rhythm without significant ST or T wave abnormalities. Denies any previous cardiac workup, no history of CAD or stents. 02/21/2022 Patient seen and examined at bedside, no acute distress. He denies any chest pain or shortness of breath. Overall patient is feeling well. Echocardiogram is pending. Vital signs are stable. He does take Aspirin 81mg daily. Labs, WBC 6.2, hemoglobin 10.2, platelets 167, BMP is pending. PHYSICAL EXAMINATION Vital signs reviewed. CONSTITUTIONAL: No apparent distress, chronically ill-appearing, slow to respond, poor insight into medical problems HEENT: Head is normocephalic. Pupils are equal, round. Sclerae anicteric. Mucous membranes of the mouth are moist. No JVD. No carotid bruit. CHEST EXAMINATION: Lungs are clear to auscultation. No chest wall tenderness is noted on palpation or with deep breathing. HEART EXAMINATION: Regular rate and rhythm. S1, S2 heard. No murmurs, gallops or rub. ABDOMEN: Soft, nontender. Positive bowel sounds. EXTREMITIES: 2+ peripheral pulses, no lower extremity edema and no calf tenderness. NEUROLOGIC EXAMINATION: Patient is awake, alert and oriented x3. ASSESSMENT Non-STEMI likely type II mechanism related to COVID, RAUL Acute kidney injury related to urinary retention Hyperlipidemia History of stroke and affecting speech PLAN Plan for limited 2-D echo for left ventricular function. Do not suspect acute coronary syndrome. Continue with aspirin. Further recommendations pending echocardiogram results. Rest of management per primary. Nurse practitioner note has been reviewed by physician. Signing provider agrees with the documented findings, assessment, and plan of care. Objective - Vital Signs Vital signs: Vital Signs Temp 98.5 F 02/21/22 05:31 Pulse 70 02/21/22 05:31 Resp 17 02/21/22 05:31 BP 110/64 02/21/22 05:31 Pulse Ox 97 02/21/22 05:31 FiO2 Intake & Output 02/20/22 02/21/22 02/21/22 18:59 06:59 18:59 Intake Total 600 Output Total 1650 800 Balance -1050 -800 Intake: Intake, IV Titration 600 Amount Sodium Chloride 0.9% 1, 600 000 ml @ 75 mls/hr IV . [id number] [facility] Rx#:[id number] Output: Urine 1650 800 Other: Voiding Method Indwelling Catheter - Labs CBC & Chem 7: 02/21/22 05:46 02/20/22 07:06 Labs: Abnormal Lab Results - Last 24 Hours (Table) 02/19/22 02/20/22 02/20/22 Range/Units 17:30 07:06 07:06 RBC 3.63 L (4.40-5.60) X 10*6/uL Hgb 10.8 L (13.0-17.0) g/dL Hct 34.7 L (39.6-50.0) % MCHC 31.1 L (32.0-37.0) g/dL Plt Count 136 L (140-440) X 10*3/uL Sodium 147 H (135-145) mmol/L Chloride 114 H (96-109) mmol/L BUN 42.2 H (9.0-27.0) mg/dL Creatinine 1.9 H (0.6-1.5) mg/dL Est GFR (CKD-EPI)AfAm 37.0 L (60.0-200.0) Est GFR (CKD-EPI)NonAf 32.0 L (60.0-200.0) BUN/Creatinine Ratio 21.87 H (12.00-20.00) Ratio AST 53 H (14-35) U/L Total Protein 5.5 L (6.2-8.2) g/dL Albumin 3.0 L (3.8-4.9) g/dL Albumin/Globulin Ratio 1.24 L (1.60-3.17) g/dL Procalcitonin 0.12 H (0.02-0.09) ng/mL 02/21/22 Range/Units 05:46 RBC 3.42 L (4.40-5.60) X 10*6/uL Hgb 10.2 L (13.0-17.0) g/dL Hct 32.7 L (39.6-50.0) % MCHC 31.2 L (32.0-37.0) g/dL Plt Count (140-440) X 10*3/uL Sodium (135-145) mmol/L Chloride (96-109) mmol/L BUN (9.0-27.0) mg/dL Creatinine (0.6-1.5) mg/dL Est GFR (CKD-EPI)AfAm (60.0-200.0) Est GFR (CKD-EPI)NonAf (60.0-200.0) BUN/Creatinine Ratio (12.00-20.00) Ratio AST (14-35) U/L Total Protein (6.2-8.2) g/dL Albumin (3.8-4.9) g/dL Albumin/Globulin Ratio (1.60-3.17) g/dL Procalcitonin (0.02-0.09) ng/mL
[2022-02-21 09:42] LABS: Anion Gap 10.5 mmol/L (10.00-18.00); BUN/Creat Ratio 20.72 Ratio (12.00-20.00); Blood Urea Nitrogen 16.1 mg/dL (9.0-27.0); Calcium 8.2 mg/dL (8.7-10.3); Carbon Dioxide 20.2 mmol/L (20.0-27.5); Non-African American GFR(CKD) 85.4 (60.0-200.0); Potassium 3.8 mmol/L (3.5-5.5)
[2022-02-21 11:53] LABS: Chol/HDL Ratio 2.99 Ratio; LDL Cholesterol,Calculated 58.2 mg/dL (0.0-131.0)
--- NOTE | 2022-02-21 13:12 | P.PN ---
Subjective Progress Note Date: 02/21/22 (Acute kidney injury, dehydration, coronavirus positive Covid19) Progress note date of service 02/21/2022. Patient seen [id number] Review the laboratories today: WBC 6.22, hemoglobin 10.2, hematocrit 32.7. Sodium 143, potassium 3.8, carbon dioxide 20.2, BUN 16.1, creatinine 0.8, GFR 85.4 returned to baseline. No history of diabetes, blood sugar 89 this morning. Hernandez catheter in place. Physical therapy orders. Patient in isolation. On exam: Temperature 98.4 F oral, ulcerate 61 regular, respiratory rate 16, blood pressure 100/59, and mean blood pressure 72, oxygen saturation on room air 97. Head was normocephalic and atraumatic Speech impairment with previous history of stroke. 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 Oropharynx natural teeth. Neck was supple no JVD no thyromegaly no lymphadenopathy trachea midline. Chest: Clear to auscultation and percussion normal breath sound. Heart: Regular sinus rhythm. Abdomen soft positive bowel sounds. Extremities no edema. Neurologically stable. Assessment: #1 acute kidney injury with renal failure probably secondary to retention of urine and dehydration. 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 #4 hypertension was controlled #5 coronavirus with positive Covid 19 received monoclonal in the ER IV. #6 generalized weakness with inability to walk or use his walker as it used to be. #7 anemia probably associated with hydration rule out anemia of chronic disease versus iron deficiency Plan We will continue IV fluid #2 consult infectious control. #3 obtain iron study and vitamin B12 slightly and folic acid No. 4 continue rehab. BMP in a.m., for for further evaluation of the renal function, tomorrow discontinuation of the Hernandez catheter if it's okay with the nephrology as well to see if the patient able to urinate on his own. Objective - Vital Signs Vital signs: Vital Signs Temp 98.4 F 02/21/22 10:00 Pulse 61 02/21/22 10:00 Resp 16 02/21/22 10:00 BP 100/59 02/21/22 10:00 Pulse Ox 97 02/21/22 10:00 FiO2 Intake & Output 02/20/22 02/21/22 02/21/22 18:59 06:59 18:59 Intake Total 600 Output Total 1650 800 Balance -1050 -800 Intake: Intake, IV Titration 600 Amount Sodium Chloride 0.9% 1, 600 000 ml @ 75 mls/hr IV . [id number] [facility] Rx#:[id number] Output: Urine 1650 800 Other: Voiding Method Indwelling Catheter - Labs CBC & Chem 7: 02/21/22 05:46 02/21/22 05:46 Labs: Abnormal Lab Results - Last 24 Hours (Table) 02/20/22 02/20/22 02/21/22 Range/Units 07:06 07:06 05:46 RBC 3.42 L (4.40-5.60) X 10*6/uL Hgb 10.2 L (13.0-17.0) g/dL Hct 32.7 L (39.6-50.0) % MCHC 31.2 L (32.0-37.0) g/dL Sodium 147 H (135-145) mmol/L Chloride 114 H (96-109) mmol/L BUN 42.2 H (9.0-27.0) mg/dL Creatinine 1.9 H (0.6-1.5) mg/dL Est GFR (CKD-EPI)AfAm 37.0 L (60.0-200.0) Est GFR (CKD-EPI)NonAf 32.0 L (60.0-200.0) BUN/Creatinine Ratio 21.87 H (12.00-20.00) Ratio Calcium (8.7-10.3) mg/dL AST 53 H (14-35) U/L Total Protein 5.5 L (6.2-8.2) g/dL Albumin 3.0 L (3.8-4.9) g/dL Albumin/Globulin Ratio 1.24 L (1.60-3.17) g/dL HDL Cholesterol 39.80 L (40.00-60.00) mg/dL 02/21/22 Range/Units 05:46 RBC (4.40-5.60) X 10*6/uL Hgb (13.0-17.0) g/dL Hct (39.6-50.0) % MCHC (32.0-37.0) g/dL Sodium (135-145) mmol/L Chloride 112 H (96-109) mmol/L BUN (9.0-27.0) mg/dL Creatinine (0.6-1.5) mg/dL Est GFR (CKD-EPI)AfAm (60.0-200.0) Est GFR (CKD-EPI)NonAf (60.0-200.0) BUN/Creatinine Ratio 20.72 H (12.00-20.00) Ratio Calcium 8.2 L (8.7-10.3) mg/dL AST (14-35) U/L Total Protein (6.2-8.2) g/dL Albumin (3.8-4.9) g/dL Albumin/Globulin Ratio (1.60-3.17) g/dL HDL Cholesterol (40.00-60.00) mg/dL
[2022-02-21 14:06] LABS: African American GFR (CKD) >90 (>60 ml/min/1.73 sqM); Anion Gap 8 mmol/L; Blood Urea Nitrogen 15 mg/dL (9-20); Calcium 8.6 mg/dL (8.4-10.2); Carbon Dioxide 20 mmol/L (22-30); Chloride 113 mmol/L (98-107); Glucose 114 mg/dL (74-99); Non-African American GFR(CKD) 88 (>60 ml/min/1.73 sqM); Sodium 141 mmol/L (137-145)
[2022-02-21 14:58] VITALS: BMI 25.0
--- NOTE | 2022-02-21 15:04 | P.PN ---
Subjective Patient is seen for follow-up for acute kidney injury. It is obstructive and currently significantly improved her creatinine of 0.7 from creatinine of 11 on initial admission. Patient has a Hernandez catheter. No significant complaints today Objective - Vital Signs Vital signs: Vital Signs Temp 98.4 F 02/21/22 10:00 Pulse 61 02/21/22 10:00 Resp 16 02/21/22 10:00 BP 100/59 02/21/22 10:00 Pulse Ox 97 02/21/22 10:00 FiO2 Intake & Output 02/20/22 02/21/22 02/21/22 18:59 06:59 18:59 Intake Total 600 Output Total 1650 800 Balance -1050 -800 Weight 72.575 kg Intake: Intake, IV Titration 600 Amount Sodium Chloride 0.9% 1, 600 000 ml @ 75 mls/hr IV . [id number] [facility] Rx#:[id number] Output: Urine 1650 800 Other: Voiding Method Indwelling Catheter - Exam Patient is awake, comfortable not in any acute distress Examination of legs shows no evidence of edema. Patient is moving all 4 extremities. - Labs CBC & Chem 7: 02/21/22 05:46 02/21/22 13:17 Labs: Abnormal Lab Results - Last 24 Hours (Table) 02/19/22 02/20/22 02/21/22 Range/Units 17:30 07:06 05:46 RBC 3.42 L (4.40-5.60) X 10*6/uL Hgb 10.2 L (13.0-17.0) g/dL Hct 32.7 L (39.6-50.0) % MCHC 31.2 L (32.0-37.0) g/dL Chloride (96-109) mmol/L Carbon Dioxide (22-30) mmol/L BUN/Creatinine Ratio (12.00-20.00) Ratio Glucose (74-99) mg/dL Calcium (8.7-10.3) mg/dL HDL Cholesterol 39.80 L (40.00-60.00) mg/dL Total PSA 13.1 H (<=4.0) ng/mL 02/21/22 02/21/22 Range/Units 05:46 13:17 RBC (4.40-5.60) X 10*6/uL Hgb (13.0-17.0) g/dL Hct (39.6-50.0) % MCHC (32.0-37.0) g/dL Chloride 112 H 113 H (96-109) mmol/L Carbon Dioxide 20 L (22-30) mmol/L BUN/Creatinine Ratio 20.72 H (12.00-20.00) Ratio Glucose 114 H (74-99) mg/dL Calcium 8.2 L (8.7-10.3) mg/dL HDL Cholesterol (40.00-60.00) mg/dL Total PSA (<=4.0) ng/mL Assessment and Plan Assessment: 1. Acute kidney injury secondary to urine retention currently resolved. Patient is maintained with a Hernandez catheter 2. Urine retention currently with Hernandez catheter no evidence of hydronephrosis noted on CAT scan 3. Metabolic acidosis associated with acute kidney injury maintained on oral sodium bicarb 4. Hypovolemia currently improved Plan: Continue with sodium bicarb Continue to encourage increase oral intake May continue with the IV fluids for now
--- NOTE | 2022-02-21 17:52 | CA ---
Transthoracic Echo Report Name: Yousuf Cisneros Age: 81 Gender: M : 1940 Exam Date: 02/21/2022 11:46 Exam Location: [facility] Ht (in): 67 Wt (lb): 160 Ordering Physician: Davon Rosario DO ([email or web address]) Attending/Referring Phys: Record Keeper Aspen Faith RDCS Procedure CPT: Indications: re: LV function, COVID Cardiac Hx: Covid positive Technical Quality: Good Contrast 1: Total Dose (mL): Contrast 2: Total Dose (mL): MEASUREMENTS (Male / Female) Normal Values 2D ECHO LV Diastolic Diameter PLAX 4.2 cm 4.2 - 5.9 / 3.9 - 5.3 cm LV Systolic Diameter PLAX 3.2 cm IVS Diastolic Thickness 0.9 cm 0.6 - 1.0 / 0.6 - 0.9 cm LVPW Diastolic Thickness 1.1 cm 0.6 - 1.0 / 0.6 - 0.9 cm LV Relative Wall Thickness 0.5 DOPPLER AI Peak Velocity 249.1 cm/s AI Peak Gradient 24.8 mmHg AI Pressure Half Time 1047.6 ms FINDINGS Left Ventricle Left ventricular ejection fraction is estimated at 55-60 %. Left ventricular cavity size normal. Left ventricular wall thickness normal. Right Ventricle Right Atrium Left Atrium Mitral Valve Mild mitral anulus calcification with mild regurgitation Aortic Valve Mild aortic regurgitation. Aortic sclerosis with no evidence stenosis Tricuspid Valve Pulmonic Valve Pericardium No pericardial effusion. Aorta CONCLUSIONS 1. Limited study 2. Normal size and systolic function 3. Mild mitral and aortic regurgitation 4. No pericardial effusion Previewed by: Dr. Belle Easley MD (Electronically Signed) Final Date: 21 February 2022 17:51
[2022-02-21 19:27] LABS: % Iron Saturation 19.52 (15.00-50.00); Iron 31 ug/dL (65-175); Total Iron Binding Capacity 157 ug/dL (228-460)
[2022-02-21] MEDS: bisacodyL 5 MG TABLET.DR PO PRN (20:11)
[2022-02-22] MEDS: SODIUM CHLORIDE 0.45% 1,000 ML IV SCH (08:03)
[2022-02-22] MEDS: HEPARIN SODIUM,PORCINE/PF 5,000 UNIT/0.5 ML SYRINGE SQ SCH ×2 (08:03→17:43)
[2022-02-22] MEDS: PANTOPRAZOLE 40 MG TABLET PO SCH (08:04)
[2022-02-22] MEDS: TAMSULOSIN 0.4 MG CAP.ER.24H PO SCH (08:04)
[2022-02-22] MEDS: ASPIRIN 81 MG PO SCH (08:04)
[2022-02-22] MEDS: CHOLECALCIFEROL 25 MCG (1000 IU) TABLET PO SCH (08:04)
[2022-02-22] MEDS: SODIUM BICARBONATE TAB 650 MG TAB PO SCH ×2 (08:04→21:04)
[2022-02-22] MEDS: DORZOLAMIDE HCL 2% DROPS 10 ML BTL BOTH EYES SCH ×2 (08:06→21:05)
[2022-02-22] MEDS: TIMOLOL 0.5% OPHTH DROPS 5 ML BTL BOTH EYES SCH ×2 (08:07→21:05)
[2022-02-22] MEDS: BRIMONIDINE TARTRATE 0.2% DROPS 5 ML BTL BOTH EYES SCH ×2 (08:07→21:05)
--- NOTE | 2022-02-22 10:41 | P.PN ---
Subjective HISTORY OF PRESENTING ILLNESS Patient is a pleasant 81-year-old male with history of stroke with residual deficits and somewhat slow to answer, chronic kidney disease, hyperlipidemia. 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 We are asked to see in consultation for Elevated troponin. He presented secondary to generalized weakness and unable to use his walker. He has been having some urinary retention and hasn't been able urinate and in the ER found to have a proximally 1700 mL urinary retention. Hernandez catheter was placed. He had acute kidney injury with initial creatinine 11.6 however improved to 1.9 from labs on 02/20. Troponins mildly elevated 0.043. D-dimer elevated greater than 34. EKG revealed sinus rhythm without significant ST or T wave abnormalities. Denies any previous cardiac workup, no history of CAD or stents. 02/22/2022 Patient seen and examined at bedside, no acute distress. He denies any chest pain or shortness of breath. Overall patient is feeling well. Cough has improved. Echocardiogram revealed EF 55-60%, mild aortic regurgitation and mild mitral regurgitation. Vital signs are stable. He does take Aspirin 81mg daily. Labs from yesterday, WBC 6.2, hemoglobin 10.2, platelets 167, sodium 141, potass ium 4.0, BUN 15, serum crit 0.7 PHYSICAL EXAMINATION Vital signs reviewed. CONSTITUTIONAL: No apparent distress, chronically ill-appearing, slow to respond, poor insight into medical problems HEENT: No JVD. CHEST EXAMINATION: Lungs are clear to auscultation. No chest wall tenderness is noted on palpation or with deep breathing. HEART EXAMINATION: Regular rate and rhythm. S1, S2 heard. No murmurs, gallops or rub. ABDOMEN: Soft, nontender. Positive bowel sounds. EXTREMITIES: 2+ peripheral pulses, no lower extremity edema and no calf tenderness. NEUROLOGIC EXAMINATION: Patient is awake, alert and oriented x3. ASSESSMENT Non-STEMI likely type II mechanism related to COVID, RAUL Acute kidney injury related to urinary retention Hyperlipidemia History of stroke and affecting speech PLAN Echocardiogram revealed EF 55-60%, mild aortic regurgitation and mild mitral regurgitation. Continue with aspirin. No further changes from a cardiology standpoint. We will follow the patient on an as needed basis. Please reach out with any further questions or concerns. Nurse practitioner note has been reviewed by physician. Signing provider agrees with the documented findings, assessment, and plan of care. Objective - Vital Signs Vital signs: Vital Signs Temp 98.5 F 02/22/22 10:00 Pulse 83 02/22/22 10:00 Resp 18 02/22/22 10:00 BP 115/61 02/22/22 10:00 Pulse Ox 94 L 02/22/22 10:00 FiO2 Intake & Output 02/21/22 02/22/22 02/22/22 18:59 06:59 18:59 Output Total 700 1100 Balance -700 -1100 Weight 72.575 kg Output: Urine 700 1100 Other: Voiding Method Indwelling Catheter Indwelling Catheter - Labs CBC & Chem 7: 02/21/22 05:46 02/21/22 13:17 Labs: Abnormal Lab Results - Last 24 Hours (Table) 02/19/22 02/20/22 02/21/22 Range/Units 17:30 07:06 13:17 Chloride 113 H (98-107) mmol/L Carbon Dioxide 20 L (22-30) mmol/L Glucose 114 H (74-99) mg/dL Iron 31 L (65-175) ug/dL TIBC 157 L (228-460) ug/dL Transferrin 112.0 L (204.0-354.0) mg/dL HDL Cholesterol 39.80 L (40.00-60.00) mg/dL Total PSA 13.1 H (<=4.0) ng/mL
--- NOTE | 2022-02-22 13:03 | P.PN ---
Subjective Progress Note Date: 02/22/22 (Acute kidney injury, PSA 13 with enlarged prostate, obstructive uropathy.) Progress note Date of service 02/22/[address] Lopez. Patient seen today [id number] The dictation from cardiology nurse practitioner Indicating that diagnosis of non-STEMI likely type II mechanism related to Covid, [place] I. With the ejection fraction 55-60% mild aortic regurgitation and mild mitral regurgitation. His laboratory today indicating that PSA 13 which is elevated could be contributed to enlarged prostate however urology associated Dr. Buitrago seen the patient. Will today discontinue the Hernandez catheter and repeat bladder scan to monitor if he had any far 30 retention again and identifying the urology if it is retention more than 250 and meanwhile replace again or reinsert the Hernandez catheter. Rehabilitation indicating that patient need for further inpatient rehab with inability to ambulate or be home alone. Also discussed with the geriatric social worker for the plan of discharge and he will be discussing it with his daughter. I did consult dietitian for modulating his diet. And that consult was yesterday on February 21 I did also consult infectious control because of underlying Covid which was treated with Monopril glomerular in the ER on 02/19/2022. And patient is nonsymptomatic and that will be impacted his presence in the hospital and in regard of 5 days or 10 days so far no response., I did consult infectious control on 02/21/2022. Lab: Sodium 141 potassium is 4 carbon dioxide is 20 but patient on sodium bicarb, BUN of 15 and creatinine 0.73 and estimated glomerular filtration rate for non- 88., His blood sugar is controlled 114 with normal hemoglobin A1c His iron profile indicating iron 31 TIBC 157 saturation 19.5 to and transferrin 112.0 his total PSA is elevated 13.1 and vitamin B12 542 and serum folic acid 9.3 Which suggestive of probable anemia of chronic disease and possible mild iron deficiency has mixed picture. Acute kidney injury resolved with the normal renal function. On exam Vital sign indicating temperature 98.5 oral, pulse 83 per minute, respiratory rate 18/m nonlabored, blood pressure 115/61 and a mean arterial pressure 79 All to saturation ranged from 97-94 on room air. Patient conscious alert oriented his speech improved but still impaired with a h istory of stroke in the past. The computed tomography scan on admission was negative for new or stroke. Head was normocephalic and atraumatic, pupil is Petrona Burt with the history of surgery and cataract. Oropharynx natural teeth Neck was supple no JVD no thyromegaly no lymphadenopathy and trachea midline. Chest was clear to auscultation percussion. Heart was regular sinus rhythm with the note from the cardiology. For the explanation of elevated troponin on admission. The abdomen is soft positive bowel sounds Hernandez catheter removed today and will monitor his urine output, if the patient retain again or not. Extremities no edema and positive pulses. Assessment and plan #1 acute kidney injury which kidney function recovered to normal. #2 retention of the urine more than later with the obstructive uropathy. #3 enlarged prostate with PSA similar 13. #4 positive coronavirus with positive test Covid19 patient has symptomatic and he was treated with monoclonal in the ER as mentioned above on 02/19/2022. #5 mild anemia and will start him on 1 pill of iron a day ferrous sulfate. #6 walking disability and the need of rehabilitation support as outpatient. #7 blood pressure is controlled. Decrease the IV fluid. Objective - Vital Signs Vital signs: Vital Signs Temp 98.5 F 02/22/22 10:00 Pulse 83 02/22/22 10:00 Resp 18 02/22/22 10:00 BP 115/61 02/22/22 10:00 Pulse Ox 94 L 02/22/22 10:00 FiO2 Intake & Output 02/21/22 02/22/22 02/22/22 18:59 06:59 18:59 Output Total 700 1100 Balance -700 -1100 Weight 72.575 kg Output: Urine 700 1100 Other: Voiding Method Indwelling Catheter Indwelling Catheter - Labs CBC & Chem 7: 02/21/22 05:46 02/21/22 13:17 Labs: Abnormal Lab Results - Last 24 Hours (Table) 02/19/22 02/21/22 Range/Units 17:30 13:17 Chloride 113 H (98-107) mmol/L Carbon Dioxide 20 L (22-30) mmol/L Glucose 114 H (74-99) mg/dL Iron 31 L (65-175) ug/dL TIBC 157 L (228-460) ug/dL Transferrin 112.0 L (204.0-354.0) mg/dL Total PSA 13.1 H (<=4.0) ng/mL
[2022-02-22] MEDS ORDERED: NA PHOS,M-B/NA PHOS,DI-BA 133 ML ENEMA RECTAL ONE (13:23)
[2022-02-22] MEDS: polyethylene glycoL 3350 17 GM POWD.PACK PO SCH (14:03)
--- NOTE | 2022-02-22 16:44 | XR ---
EXAMINATION TYPE: XR chest 1V portable DATE OF EXAM: 02/22/2022 COMPARISON: This x-ray 02/19/2022 HISTORY: Fever, Covid infection TECHNIQUE: Single frontal view of the chest is obtained. FINDINGS: There is no focal air space opacity, pleural effusion, or pneumothorax seen. The cardiac silhouette size is within normal limits. The osseous structures are intact, there is thoracic spond ylosis. IMPRESSION: No acute process.
[2022-02-22] MEDS: SENNOSIDES 8.6 MG TAB PO SCH (21:05)
[2022-02-22 22:23] LABS: Appearance,Urine Clear (Clear); Bilirubin,Urine Negative (Negative); Blood,Urine Moderate (Negative); Color,Urine Light Yellow; Glucose,Urine (UA) Negative (Negative); Ketones,Urine Negative (Negative); Leukocyte Esterase,Urine Negative (Negative); Mucus,Urine Rare /hpf; Nitrite,Urine Negative (Negative); PH, Urine 7.5 (5.0-8.0); Protein,Urine Negative (Negative); RBC,Urine 46 /hpf (0-5); Specific Gravity,Urine 1.008 (1.001-1.035); Urobilinogen,Urine <2.0 mg/dL (<2.0); WBC,Urine 6 /hpf (0-5)
[2022-02-23] MEDS: SODIUM CHLORIDE 0.45% 1,000 ML IV SCH ×2 (00:44→21:42)
[2022-02-23] MEDS: SODIUM BICARBONATE TAB 650 MG TAB PO SCH ×2 (07:47→21:43)
[2022-02-23] MEDS: ASPIRIN 81 MG PO SCH (07:47)
[2022-02-23] MEDS: CHOLECALCIFEROL 25 MCG (1000 IU) TABLET PO SCH (07:47)
[2022-02-23] MEDS: TAMSULOSIN 0.4 MG CAP.ER.24H PO SCH (07:47)
[2022-02-23] MEDS: HEPARIN SODIUM,PORCINE/PF 5,000 UNIT/0.5 ML SYRINGE SQ SCH ×2 (07:47→15:39)
[2022-02-23] MEDS: SENNOSIDES 8.6 MG TAB PO SCH ×2 (07:47→21:43)
[2022-02-23] MEDS: FERROUS SULFATE 325 MG TAB PO SCH (07:47)
[2022-02-23] MEDS: polyethylene glycoL 3350 17 GM POWD.PACK PO SCH (07:47)
[2022-02-23] MEDS: PANTOPRAZOLE 40 MG TABLET PO SCH (07:47)
[2022-02-23] MEDS: BRIMONIDINE TARTRATE 0.2% DROPS 5 ML BTL BOTH EYES SCH ×2 (07:48→21:43)
[2022-02-23] MEDS: DORZOLAMIDE HCL 2% DROPS 10 ML BTL BOTH EYES SCH ×2 (07:48→21:44)
[2022-02-23] MEDS: TIMOLOL 0.5% OPHTH DROPS 5 ML BTL BOTH EYES SCH ×2 (07:48→21:44)
[2022-02-23 11:20] LABS: Amorphous Sediment,Urine Rare /hpf; Appearance,Urine Clear (Clear); Bilirubin,Urine Negative (Negative); Blood,Urine Small (Negative); Color,Urine Yellow; Glucose,Urine (UA) Negative (Negative); Ketones,Urine Negative (Negative); Leukocyte Esterase,Urine Moderate (Negative); Mucus,Urine Rare /hpf; Nitrite,Urine Negative (Negative); PH, Urine 6.5 (5.0-8.0); Protein,Urine Trace (Negative); RBC,Urine 29 /hpf (0-5); Specific Gravity,Urine 1.009 (1.001-1.035); Urobilinogen,Urine <2.0 mg/dL (<2.0); WBC,Urine 10 /hpf (0-5)
--- NOTE | 2022-02-23 12:28 | P.CONS ---
History of Present Illness - Reason for Consult Consult date: 02/23/22 Fever Requesting physician: Agustin Lopez - Chief Complaint Fever 1 day - History of Present Illness Patient is a 81-year-old male presenting to the hospital 4 days ago on 02/19/2022 after apparently patient was complaining of weakness for the last 4 days before presentation to the hospital apparently was noticed to have some dilated pupil concerning for a CVA and the patient was brought into the hospital no history of any focal weakness no problem with the speech no vomiting no diarrhea on presentation to the hospital the patient was afebrile however he did spike a fever of 101.2 F yesterday afternoon and low-grade fever 100.5 F around 6 PM that has prompted this infectious disease consultation, patient did have a positive COVID test on admission for which the patient has received monoclonal antibodies in the ER no further treatment as the patient was not hypoxic or symptomatic as far as respiratory status is concerned patient did have a chest x-ray on admission shows chronic changes without any acute cardiopulmonary process and he did have a chest x-ray repeated yesterday afternoon which was negative for acute process patient also have a CT abdominal pelvis during this admission no renal stone hydronephrosis no bowel obstruction there was some colonic fecal stasis, patient did have mild elevation this morning is breathing comfortably on room air patient denies having any chest pain or shortness with occasional cough no abdominal pain no diarrhea patient has been self cath as he did have problem with retention however Hernandez cath was placed yesterday and UA obtained this morning significantly positive Review of Systems Positive point has been mentioned in the HPI rest of the systems are negative Past Medical History Past Medical History: Eye Disorder, Osteoarthritis (OA) Additional Past Medical History / Comment(s): glaucoma, History of Any Multi-Drug Resistant Organisms: C-DIFF Year Discovered:: 05/02/2021 MDRO Source:: Stool Past Surgical History: Cholecystectomy, Joint Replacement Additional Past Surgical History / Comment(s): right hip replaced, cataract surg. Past Anesthesia/Blood Transfusion Reactions: No Reported Reaction Past Psychological History: No Psychological Hx Reported Smoking Status: Never smoker Past Alcohol Use History: None Reported Past Drug Use History: None Reported - Past Family History Mother Family Medical History: No Reported History Father Family Medical History: No Reported History Medications and Allergies Home Medications Medication Instructions Recorded Confirmed Type Timolol/Brimonidin/Dorzolam/Pf 1 drop BOTH EYES BID 05/02/21 02/19/22 History [Timolol 0.5%/Brim 0.15%/Dorzolam 2% Ophth Soln] Aspirin 81 mg PO DAILY tab 05/06/21 02/19/22 Rx Pantoprazole [Protonix] 40 mg PO AC-BRKFST #60 tab 05/06/21 02/19/22 Rx Acetaminophen [Tylenol Arthritis] 650 mg PO Q12H PRN 02/19/22 02/19/22 History Carboxymethylcellulose Sodium 1 drop BOTH EYES Q4H PRN 02/19/22 02/19/22 History [Refresh Tears] Cholecalciferol [Vitamin D3 (25 25 mcg PO DAILY 02/19/22 02/19/22 History Mcg = 1000 Iu)] Potassium Gluconate [Potassium 99 mg PO DAILY 02/19/22 02/19/22 History Gluconate ER] Allergies Allergy/AdvReac Type Severity Reaction Status Date / Time No Known Allergies Allergy Verified 02/19/22 14:03 Physical Exam Vitals: Vital Signs Temp Pulse Resp BP Pulse Ox 02/23/22 05:50 98.1 F 79 16 113/67 100 02/23/22 02:00 98.6 F 81 16 114/66 91 L 02/22/22 21:10 98.9 F 94 16 128/67 98 02/22/22 20:40 94 16 02/22/22 18:00 100.5 F H 102 H 17 130/73 97 02/22/22 14:33 99.5 F 89 16 95 02/22/22 14:00 101.2 F H 103 H 17 126/67 94 L 02/22/22 10:00 98.5 F 83 18 115/61 94 L Intake and Output 02/22/22 02/23/22 02/23/22 22:59 06:59 14:59 Intake Total 740 Output Total 3100 1150 Balance -2360 -1150 Intake: Oral 740 Output: Urine 3100 1150 Uretheral (Hernandez) 950 Other: Voiding Method Indwelling Catheter GENERAL DESCRIPTION: Elderly male lying in bed, no distress. No tachypnea or accessory muscle of respiration use. HEENT: Shows Pallor , no scleral icterus. Oral mucous membrane is dry. No pharyngeal erythema or thrush NECK: Trachea central, no thyromegaly. LUNGS: Unlabored breathing. Decreased breath sound at the base. No wheeze or crackle. HEART: S1, S2, regular rate and rhythm. No loud murmur ABDOMEN: Soft, no tenderness , guarding or rigidity, no organomegaly EXTREMITIES: No edema of feet. SKIN: No rash, no masses palpable. NEUROLOGICAL: The patient is awake, alert, oriented x2, mood and affect normal. Results CBC & Chem 7: 02/21/22 05:46 02/21/22 13:17 Labs: Abnormal Lab Results - Last 24 Hours (Table) 02/22/22 Range/Units 20:40 Urine Blood Moderate H (Negative) Urine RBC 46 H (0-5) /hpf Urine WBC 6 H (0-5) /hpf Urine Mucus Rare H (None) /hpf Assessment and Plan (1) Fever Current Visit: Yes Status: Acute Code(s): R50.9 - FEVER, UNSPECIFIED SNOMED Code(s): 178996023 Plan: 1patient with an episode of fever on 02/22/2022 and this patient admitted to hospital on 02/19/2022 for weakness and has been diagnosed with a COVID received monoclonal antibodies patient also have urine retention requiring intermittent catheterization however a Hernandez catheter has been placed yesterday patient did have normal urine admission however repeat UA significantly positive and could be likely the source of his fever likely from enteric gram-negative pathogen, as no evidence of any pneumonia and his abdominal soft on clinical examination. 2we will start the patient Rocephin 2 g daily while waiting for the culture to finalize. We will follow on clinical condition and cultures to further adjust medication if needed Thank you for this consultation will follow this patient along with you Time with Patient: Greater than 30
--- NOTE | 2022-02-23 14:15 | P.PN ---
Subjective Progress Note Date: 02/23/22 (Episodic fever, history of positive coronavirus, obstructive uropathy with a PSA 13) Progress note dictation Date of service 02/23/2022. Patient seen [id number] examined. Patient able to communicate with the slurred speech stated the food is lousy. His vital sign indicating temperature 98.2 F oral, pulse rate 83 per minute regular, respiratory rate 16 nonlabored, blood pressure 119/66, mean blood pre ssure 83, oxygen saturation 99% on room air. His Hernandez catheter has been removed yesterday and found with the bladder scan dictating thinning the urine was more than [address] Sin and he reinserted the Hernandez catheter again, patient also had enlarged prostate and the PSA is 13. Repeat urine analysis indicating moderate leukocytosis RBC 29 and WBC 10 and urine culture is pending. Seen by Dr. Daniel infectious disease, he started him on Rocephin, pending the culture results. The neurologist Dr. Sin aware about his PSA and the obstructive uropathy with the ordered that he placed again the Hernandez catheter because of that retention of the urine. Patient presented with acute kidney injury secondary to retention of the urine and inability to urinate. Chest x-ray was negative reported. Blood culture obtained with the temperature elevation 101. Result is pending In regard of chronic constipation patient placed on medication and stool soft nontender and polyethylene glycol daily. And no report on the computer of any bowel movement in the day yesterday or today. His vital sign currently stable On exam: Head was normocephalic atraumatic pupil is equal reactive oropharynx natural disease able to eat and swallow he had a speech impaired with the previous CVA Neck was supple no JVD no thyromegaly no lymphadenopathy and trachea midline. Chest clear to auscultation and percussion and patient has go expected any cough or phlegm and a chest x-ray today was negative results. Heart: Regular sinus rhythm and no arrhythmias Abdomen: Soft positive bowel sounds but no bowel movement yet. Extremities: No edema. Pulses and he still in the rehab with inability to ambulate. Neurologically: Debility and gait and need for further rehabilitation. Assessment: #1 presented through the emergency room with the elevated BUN and creatinine with the acute kidney injury #2 obstructive uropathy number #3 enlarged prostate with elevated PSA 13 #4 constipation, chronic #5 severe dehydration #6 gait disturbance he was using walker at home, and he use to be a long, physical therapy recommended against that and need for 30 have a dictation. #7 underlying elevated troponin on admission, secondary to acute kidney injury. #8 urinary tract infection. With hematuria. Mentation and plan: #1 patient currently with Hernandez catheter with the failure of urinate after removal of the Hernandez catheter, and reinserted by the order of Dr. howard urology. #2 continue rehabilitation inpatient. #3 waiting for the urine culture. #4 patient in isolation for Covid 19 and he was treated with the monoclonal in the ER. #5 future plan to [facility] or other entity for rehabilitation with generaliz ed weakness. Objective - Vital Signs Vital signs: Vital Signs Temp 98.2 F 02/23/22 10:00 Pulse 83 02/23/22 10:00 Resp 16 02/23/22 10:00 BP 119/66 02/23/22 10:00 Pulse Ox 99 02/23/22 10:00 FiO2 Intake & Output 02/22/22 02/23/22 02/23/22 18:59 06:59 18:59 Intake Total 740 400 Output Total 1200 3050 Balance -460 -3050 400 Intake: Intake, IV Titration 400 Amount Sodium Chloride 0.45% 1, 400 000 ml @ 50 mls/hr IV . Q20H [facility] Rx#:[id number] Oral 740 Output: Urine 1200 3050 Uretheral (Hernandez) 950 Other: Voiding Method Indwelling Catheter Indwelling Catheter Indwelling Catheter - Labs CBC & Chem 7: 02/21/22 05:46 02/21/22 13:17 Labs: Abnormal Lab Results - Last 24 Hours (Table) 02/22/22 02/23/22 02/23/22 Range/Units 20:40 08:35 10:41 D-Dimer 5.51 H (<0.60) mg/L FEU Urine Protein Trace H (Negative) Urine Blood Moderate H Small H (Negative) Ur Leukocyte Esterase Moderate H (Negative) Urine RBC 46 H 29 H (0-5) /hpf Urine WBC 6 H 10 H (0-5) /hpf Amorphous Sediment Rare H (None) /hpf Urine Mucus Rare H Rare H (None) /hpf
[2022-02-23] MEDS: ACETAMINOPHEN TAB 325 MG TAB PO PRN (21:43)
[2022-02-24] MEDS: ASPIRIN 81 MG PO SCH (07:17)
[2022-02-24] MEDS: polyethylene glycoL 3350 17 GM POWD.PACK PO SCH (07:17)
[2022-02-24] MEDS: SENNOSIDES 8.6 MG TAB PO SCH ×2 (07:17→20:09)
[2022-02-24] MEDS: CHOLECALCIFEROL 25 MCG (1000 IU) TABLET PO SCH (07:17)
[2022-02-24] MEDS: FERROUS SULFATE 325 MG TAB PO SCH (07:17)
[2022-02-24] MEDS: SODIUM BICARBONATE TAB 650 MG TAB PO SCH (07:17)
[2022-02-24] MEDS: PANTOPRAZOLE 40 MG TABLET PO SCH (07:17)
[2022-02-24] MEDS: HEPARIN SODIUM,PORCINE/PF 5,000 UNIT/0.5 ML SYRINGE SQ SCH ×2 (07:17→16:47)
[2022-02-24] MEDS: TAMSULOSIN 0.4 MG CAP.ER.24H PO SCH (07:17)
[2022-02-24] MEDS: DORZOLAMIDE HCL 2% DROPS 10 ML BTL BOTH EYES SCH ×2 (07:18→20:08)
[2022-02-24] MEDS: TIMOLOL 0.5% OPHTH DROPS 5 ML BTL BOTH EYES SCH ×2 (07:18→20:08)
[2022-02-24] MEDS: BRIMONIDINE TARTRATE 0.2% DROPS 5 ML BTL BOTH EYES SCH ×2 (07:18→20:08)
[2022-02-24 10:40] LABS: Basophils # (A) 0.03 X 10*3/uL (0.00-0.10); Basophils % (A) 0.5 %; Eosinophils # (A) 0.15 X 10*3/uL (0.04-0.35); Eosinophils % (A) 2.3 %; HCT 36.1 % (39.6-50.0); HGB 11.3 g/dL (13.0-17.0); Immature Grans, Automated 0.5 %; Lymphocytes # (A) 0.95 X 10*3/uL (0.90-5.00); Lymphocytes % (A) 14.3 %; MCH 29.7 pg (27.0-32.0); MCHC 31.3 g/dL (32.0-37.0); MCV 94.8 fL (80.0-97.0); Mean Platelet Volume 10.4 fL (9.5-12.2); Monocytes # (A) 0.81 X 10*3/uL (0.20-1.00); Monocytes % (A) 12.2 %; NRBC Per 100 WBC 0 /100 WBCS (0.0-0.0); Neutrophils # (A) 4.68 X 10*3/uL (1.80-7.70); Neutrophils % (A) 70.2 %; Platelet Count 216 X 10*3/uL (140-440); RBC 3.81 X 10*6/uL (4.40-5.60); RDW 12.5 % (11.5-14.5); WBC 6.65 X 10*3/uL (4.50-10.00)
[2022-02-24 11:08] LABS: African American GFR (CKD) 103.3 (60.0-200.0); Albumin 2.9 g/dL (3.8-4.9); Albumin/Globulin Ratio 1.04 (1.60-3.17); Anion Gap 9.8 mmol/L (10.00-18.00); BUN/Creat Ratio 11.43 Ratio (12.00-20.00); Calcium 8.5 mg/dL (8.7-10.3); Carbon Dioxide 23.2 mmol/L (20.0-27.5); Globulin 2.8 g/dL (1.6-3.3); Non-African American GFR(CKD) 89.1 (60.0-200.0); Potassium 4.3 mmol/L (3.5-5.5); Total Bilirubin 0.8 mg/dL (0.30-1.20); Total Protein 5.7 g/dL (6.2-8.2)
--- NOTE | 2022-02-24 13:27 | P.PN ---
Subjective Progress Note Date: 02/24/22 Progress note date of service 02/24/[address] Naranjo Patient seen [id number] and discussed with with the patient as well as his daughter and I called her on the phone her #[phone] and her name Yolis Patient is conscious alert oriented he was complaining that he is weak he could not use a walker, and he does not like to be in the chair for a few hours, I did explain to him that part of his physical therapy. Patient had obstructive uropathy with enlarged prostate and his PSA 13 After trial of removal of the Hernandez catheter he retained more than a liter of urine symptomatic, nursing staff did call the urology on-call doctor buttress we'll reinsert the catheter and they are aware of PSA is elevated. No for further follow-up from urology however patient will continue for the Hernandez catheter until the see the urology probably as outpatient or if the see him again they will decided what other treatment needed patient placed on Flomax. Currently patient on antibiotic after consultation with Dr. Daniel, Blood culture was negative so far Urine culture in progress. Chest x-ray was negative. Today vital sign indicating that temperature 97.8 F oral and pulse rate 78 bpm, respiratory rate 18, blood pressure 108/54. His oxygen saturation on room air 98%. He had positive Magan and positive walker for for rotavirus. He had elevated troponin on admission cardiology did see the patient and indicating is secondary to the acute kidney injury. Patient had metabolic acidosis and corrected currently will discontinue the sodium bicarb. HEENT he had flattening of the right facial and speech impairment with the previous stroke He doesn't really feel the food that the hospital is good "he said lousy " Oropharynx normal natural teas able to eat and swallow without choking Neck was supple no JVD no thyromegaly no lymphadenopathy trachea midline. Chest was clear to auscultation percussion. Heart was regular sinus rhythm. No chest pain. Abdomen soft positive bowel sounds Extremities no edema. And positive pulses Physical therapy to continue. Assessment: #1 UTI urine culture is pending #2 acute kidney injury with metabolic acidosis result. #3 obstructive uropathy with the enlarged prostate, elevated PSA 13. #4 previous history of the stroke affecting his right facial and the speech. And walking disability. #5 coronavirus positive Covid 19 and a marker as well. #6 normal vitamin B12 level and folic acid level. #7 severe dehydration. #8 disability and gait disturbance and generalized weakness needs for 30 rehabilitation. Laboratory today 02/24/2022 White count 6.65, his hemoglobin 13.3 hematocrit 36.1. culture was negative. 2 of the blood CRP still elevated 10.30 and decreased albumin, globulin and total protein. Plan: #1 week checked with infectious control in regard of Covid isolation and stated he'll need 10 days. #2 patient with a urinary tract infection as well and he is on antibiotic and will see what Dr. Daniel recommended as infectious disease #3 monitor the bowel movement #4 discharge planning after the isolation, no recurrent fever or temperature. I did discuss it with his daughter and extensive the time with the goal and obtain patient need [facility] for continued rehabilitation. Objective - Vital Signs Vital signs: Vital Signs Temp 97.8 F 02/24/22 10:00 Pulse 78 02/24/22 10:00 Resp 18 02/24/22 10:00 BP 108/54 02/24/22 10:00 Pulse Ox 98 02/24/22 10:00 FiO2 Intake & Output 02/23/22 02/24/22 02/24/22 18:59 06:59 18:59 Intake Total 400 Output Total 1600 Balance 400 -1600 Intake: Intake, IV Titration 400 Amount Sodium Chloride 0.45% 1, 400 000 ml @ 50 mls/hr IV . Q20H [facility] Rx#:[id number] Output: Urine 1600 Uretheral (Hernandez) 200 Other: Voiding Method Indwelling Catheter - Labs CBC & Chem 7: 02/24/22 07:24 02/24/22 07:24 Labs: Abnormal Lab Results - Last 24 Hours (Table) 02/23/22 02/24/22 02/24/22 Range/Units 08:35 07:24 07:24 RBC 3.81 L (4.40-5.60) X 10*6/uL Hgb 11.3 L (13.0-17.0) g/dL Hct 36.1 L (39.6-50.0) % MCHC 31.3 L (32.0-37.0) g/dL Anion Gap 9.80 L (10.00-18.00) mmol/L BUN 8.0 L (9.0-27.0) mg/dL BUN/Creatinine Ratio 11.43 L (12.00-20.00) Ratio Calcium 8.5 L (8.7-10.3) mg/dL C-Reactive Protein 10.30 H (0.00-0.80) mg/dL Total Protein 5.7 L (6.2-8.2) g/dL Albumin 2.9 L (3.8-4.9) g/dL Albumin/Globulin Ratio 1.04 L (1.60-3.17) g/dL Microbiology - Last 24 Hours (Table) 02/22/22 16:01 Blood Culture - Preliminary Blood No Growth after 24 hours 02/22/22 16:10 Blood Culture - Preliminary Blood No Growth after 24 hours
[2022-02-24] MEDS: SODIUM CHLORIDE 0.45% 1,000 ML IV SCH (16:45)
[2022-02-24] MEDS: ACETAMINOPHEN TAB 325 MG TAB PO PRN (20:06)
[2022-02-25] MEDS: ASPIRIN 81 MG PO SCH (08:45)
[2022-02-25] MEDS: TAMSULOSIN 0.4 MG CAP.ER.24H PO SCH (08:45)
[2022-02-25] MEDS: CHOLECALCIFEROL 25 MCG (1000 IU) TABLET PO SCH (08:45)
[2022-02-25] MEDS: polyethylene glycoL 3350 17 GM POWD.PACK PO SCH (08:45)
[2022-02-25] MEDS: HEPARIN SODIUM,PORCINE/PF 5,000 UNIT/0.5 ML SYRINGE SQ SCH ×2 (08:45→18:29)
[2022-02-25] MEDS: SENNOSIDES 8.6 MG TAB PO SCH (08:45)
[2022-02-25] MEDS: PANTOPRAZOLE 40 MG TABLET PO SCH (08:45)
[2022-02-25] MEDS: DORZOLAMIDE HCL 2% DROPS 10 ML BTL BOTH EYES SCH (08:45)
[2022-02-25] MEDS: BRIMONIDINE TARTRATE 0.2% DROPS 5 ML BTL BOTH EYES SCH (08:46)
[2022-02-25] MEDS: TIMOLOL 0.5% OPHTH DROPS 5 ML BTL BOTH EYES SCH (08:47)
[2022-02-25] MEDS ORDERED: MAGNESIUM HYDROXIDE 2,400 MG/10 ML CUP PO PRN (11:23)
[2022-02-25] MEDS ORDERED: NA PHOS,M-B/NA PHOS,DI-BA 133 ML ENEMA RECTAL ONE (11:24)
--- NOTE | 2022-02-25 12:24 | P.PN ---
Subjective Progress Note Date: 02/25/22 Progress note dictation by Dr. Naranjo date of service 02/25/2022 Patient seen and evaluated [id number] and examined Patient stated that he did not have no bowel movement, and there is no clear documentation on the computer for the BM's We started him on milk of magnesia twice a day to be held once he had DM. Patient had underlying urinary tract infection and we were waiting for the culture of the urine, however there is no results and patient already has been on antibiotic I did call the laboratories and they stated that the culture was not done because his white count was 10 and the criteria for them is 11, patient at that time when we did the urine culture and a urine analysis he had fever 101 and the urine appeared to be infected and he was was selected and 18 more than 1000 urine and the reinserts the catheter after the cold DrLona buttalexandria the urology. Patient also had a prostate enlargement and the PSA was 13. Patient is conscious alert oriented and on the exam he is slow speech with a h istory of CVA in the past mild patient acetaminophen 3 was flattening of the right side of the face, he has ambulation difficulties with gait disturbance and generalized weakness and we were week waiting for also for [facility] or assisted living placement for now with the rehabilitation. We consulted Dr. Mays and will recheck with him with the underlying positive Covid19 for coronavirus on admission on 02/19/2022 and at that time he treated with monoclonal IV. He feeling that difficulties of the taste and the boost and ensure and a chocolate taste does not taste good for him and we requested milkshakes with the underlying low protein and albumin and globulin. On exam head was normocephalic and atraumatic and pupil is on a 12 with a history of surgery for the cataract Oropharynx natural teeth Neck was supple no JVD no thyromegaly no lymphadenopathy Chest was clear to auscultation percussion no wheezes no rhonchi's Heart regular sinus rhythm no chest pain Abdomen soft positive bowel sounds Extremities no edema and positive pulses Neurologically no progression and no change from his status except to that is still weak and he need for further rehabilitation could not go home actually as he 11 alone. Assessment: #1 history of Covid19 isolation #2 acute kidney injury secondary to retention of the urine #3 obstructive uropathy with enlargement prostate and elevated PSA. #4 history of CVA in the past with the slurred speech #5 walking disability with the generalized weakness. #6 UTI with episode of fever 101 and blood culture was negative and chest x-ray was negative and the urine was. To be infected however the laboratory did not do the cultures. Plan #1 #1 consult the discharge planning and social media editor #[address] Daniel infectious disease for clarification on his discharge time , I did spoke with Dr. Daniel and I did the scope with the social media editor and the and will check the the [facility] status and if there is a trace to carry him with a history of Covid which he acquired on the date of admission [id number]. #2 Dr. Daniel also advised with Ceftin 500 mg twice a day when he discharge for 7 days #3 with a plan for transfer to [facility] for continuing care when available bed. #3 his vital signs stable. Objective - Vital Signs Vital signs: Vital Signs Temp 98.5 F 02/25/22 10:00 Pulse 82 02/25/22 10:00 Resp 17 02/25/22 10:00 BP 114/56 02/25/22 10:00 Pulse Ox 98 02/25/22 10:00 FiO2 Intake & Output 02/24/22 02/25/22 02/25/22 18:59 06:59 18:59 Intake Total 650 600 240 Output Total 2200 Balance 650 -1600 240 Intake: Intake, IV Titration 650 Amount Sodium Chloride 0.45% 1, 600 000 ml @ 50 mls/hr IV . Q20H [facility] Rx#:[id number] cefTRIAXone 2 gm In 50 Sodium Chloride 0.9% 50 ml @ 100 mls/hr IVPB Q24HR [facility] Rx#:[id number] Oral 600 240 Output: Urine 2200 Uretheral (Hernandez) 2200 Other: Voiding Method Indwelling Catheter - Labs CBC & Chem 7: 02/24/22 07:24 02/24/22 07:24 Labs: Microbiology - Last 24 Hours (Table) 02/22/22 16:01 Blood Culture - Preliminary Blood No Growth after 48 hours 02/22/22 16:10 Blood Culture - Preliminary Blood No Growth after 48 hours
[2022-02-25] MEDS ORDERED: MAGNESIUM HYDROXIDE 2,400 MG/10 ML CUP PO SCH (12:45)
[2022-02-25] MEDS: FERROUS SULFATE 325 MG TAB PO SCH (13:02)
--- NOTE | 2022-02-25 13:15 | P.DS ---
Providers Date of admission: 02/19/22 14:44 Expected date of discharge: 02/25/22 Attending physician: Agustin Lopez Consults: 02/19/22 14:42 Consult Physician Routine Consulting Provider: Han Sun Consult Reason/Comments: ARF, urinary retention Do you want consulting provider notified?: Yes, Notify in am Consult Physician Routine Consulting Provider: Juan Mehta Consult Reason/Comments: acute renal failure Do you want consulting provider notified?: Yes, Notify in am 02/20/22 06:00 Consult Physician Urgent Consulting Provider: Shine Alvarado Consult Reason/Comments: Elevated DD Do you want consulting provider notified?: Yes, Notify in am 02/22/22 15:39 Consult Physician Routine Consulting Provider: Lissa Daniel Consult Reason/Comments: fever Do you want consulting provider notified?: Yes Primary care physician: Agustin Lopez Discharge summary Dictation by Dr. Lopez Date of discharge 02/25/2022 Date of admission 02/19/2022 Final diagnoses: #1 acute kidney injury secondary to urinary retention #2 obstructive uropathy with the enlarged prostate and elevated PSA 13 #3 chronic constipation #4 anemia with iron deficiency #5 urinary tract infection with continuation of antibiotic at the nursing facility Ceftin 500 mg twice a day. 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 #8 walking disability need for further inpatient rehabilitation #9 Covid19 positive for coronavirus with marker diagnosed on 02/19/2022 on admission to the ER. #9 renal function recovered completely #10 Hernandez catheter for obstructive uropathy to follow with the urology Dr. Sun after finishing the isolation and rehabilitation. #11 severe dehydration ER presentation: Severe debility inability to ambulate found to be with urine retention, acute kidney injury with elevated creatinine to 11.6 and bili BUN more than 100. And positive coronavirus COVID-19 test. Also he had old history of stroke and he used to be walking with walker and he had speech impairment however it is worsened with the reason to come to the ER. Hospital course: Patient admitted to the floor and monitored with the reason mild elevation of troponin consultation with cardiology was obtained. Consultation with infectious disease also obtained, patient already had monoclonal infusion in the emergency room at the time of admission was positive coronavirus test Nephrology consultation was obtained. Chest x-ray was negative IV hydration aggressively with the severe dehydration, however consultation with urology was obtained with the underlying obstructive uropathy and subsequently his PSA was 13. And trial of discontinuation of the Hernandez catheter was done and failed and patient retained more than a liter at that time they called Dr. Walker urology and he ordered to be reinserted again. And to continue until patient seen by the urology [facility] group. Patient had episode of fever 101 at that time the infectious disease Dr. Mays called and meanwhile we obtained blood culture which was negative and repeat chest x-ray which was negative and the urine analysis was indicating UTI however culture was ordered but was not done in the laboratory because of the criteria the applied was WBC in the urine should be 11 and patient his WBC was 10 however patient clinically responded very well to the antibiotic that he currently received and Dr. Daniel today the infectious disease did see the patient and the advised to replace the IV antibiotic with Ceftin 500 mg twice a day for total of 7 days. 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 [id number] exam: Head was normocephalic and atraumatic pupils unequal with Petrona Sapna due to the surgery for cataract bilateral. Mild hearing deficit left patient has symmetric and speech impairment Oropharynx natural teas and able to eat and swallow no choking. Neck was supple no JVD no thyromegaly no lymphadenopathy trachea midline. Chest clear to auscultation and percussion Heart regular sinus rhythm no chest pain no arrhythmias. Abdomen soft positive bowel sounds no organ enlargement. Extremities no edema and positive pulses. Neuro: History of stroke in the past with this patient impairment and right facial, exacerbation of weakness in both upper and lower extremities and inability to use a walker need further rehabilitation. Patient also had some protein calorie deficiency and need supplementation however he unable to taste the food in the hospital wasn't palatable to him. Assessment: Patient stable general condition, vital sign stable, he had also physical therapy in the hospital however it is limited and need more therapy. Patient with history of the Covid19 for coronavirus he never been vaccinated in the past as his family again and stated and the patient and with his positive testing he needs isolation as in the protocol. He had chronic constipation and he is currently needs follow-up however we started him on milk of magnesia and other modality. And need to be monitored. Patient after finishing his isolation and rehabilitation he may need to be followed and seen by urology Dr. Sun for his obstructive uropathy. With the elevated PSA 13. Patient with a history of UTI and need to continue with Ceftin 500 mg twice a day for one week duration. At the [facility] Plan: #1 DC the IV fluid and the Hep-Lock. #2 DC antibiotic IV and continue with the oral at the [facility] facility. #3 continue rehabilitation #4 isolation with the history of cough at 410 days however he received monoclonal in the emergency room at [facility]. Patient Condition at Discharge: Stable Plan - Discharge Summary New Discharge Prescriptions: New Tamsulosin [Flomax] 0.4 mg PO PC-BRKFST #30 cap Magnesium Hydroxide [Milk of Magnesia Concentrate] 2,400 mg PO BID PRN ml PRN Reason: Constipation Ferrous Sulfate [Iron (65 MG Elemental)] 325 mg PO 1200 #30 tab polyethylene glycoL 3350 [Miralax] 17 gm PO DAILY packet Sennosides [Senokot] 8.6 mg PO BID tab Continue Timolol/Brimonidin/Dorzolam/Pf [Timolol 0.5%/Brim 0.15%/Dorzolam 2% Ophth Soln] 1 drop BOTH EYES BID Aspirin 81 mg PO DAILY tab Pantoprazole [Protonix] 40 mg PO AC-BRKFST #60 tab Cholecalciferol [Vitamin D3 (25 Mcg = 1000 Iu)] 25 mcg PO DAILY Acetaminophen [Tylenol Arthritis] 650 mg PO Q12H PRN PRN Reason: Pain Carboxymethylcellulose Sodium [Refresh Tears] 1 drop BOTH EYES Q4H PRN PRN Reason: dry eyes Discontinued Potassium Gluconate [Potassium Gluconate ER] 99 mg PO DAILY Discharge Medication List Timolol/Brimonidin/Dorzolam/Pf [Timolol 0.5%/Brim 0.15%/Dorzolam 2% Ophth Soln] 1 drop BOTH EYES BID 05/02/21 [History] Aspirin 81 mg PO DAILY tab 05/06/21 [Rx] Pantoprazole [Protonix] 40 mg PO AC-BRKFST #60 tab 05/06/21 [Rx] Acetaminophen [Tylenol Arthritis] 650 mg PO Q12H PRN 02/19/22 [History] Carboxymethylcellulose Sodium [Refresh Tears] 1 drop BOTH EYES Q4H PRN 02/19/22 [History] Cholecalciferol [Vitamin D3 (25 Mcg = 1000 Iu)] 25 mcg PO DAILY 02/19/22 [History] Ferrous Sulfate [Iron (65 MG Elemental)] 325 mg PO 1200 #30 tab 02/25/22 [Rx] Magnesium Hydroxide [Milk of Magnesia Concentrate] 2,400 mg PO BID PRN ml 02/25/22 [Rx] Sennosides [Senokot] 8.6 mg PO BID tab 02/25/22 [Rx] Tamsulosin [Flomax] 0.4 mg PO PC-BRKFST #30 cap 02/25/22 [Rx] polyethylene glycoL 3350 [Miralax] 17 gm PO DAILY packet 02/25/22 [Rx] Follow up Appointment(s)/Referral(s): Agustin Lopez MD [Primary Care Provider] - 1-2 days Patient Instructions/Handouts: Acute Kidney Injury (DC), COVID-19 (Coronavirus Disease 2019) (DC) Discharge Disposition: TRANSFER TO SNF/ECF
[2022-02-25] MEDS: SODIUM CHLORIDE 0.45% 1,000 ML IV SCH (14:00)
--- NOTE | 2022-02-25 15:25 | P.PN ---
Subjective Progress Note Date: 02/24/22 Principal diagnosis: Fever and likely urinary tract infection Patient is 81-year-old male presenting to the hospital for evaluation of weakness patient on admission Hospital have a fever and he tested positive for Covid 19, patient did receive monoclonal antibodies in the emergency room and no further treatment, as the patient's chest x-ray was negative also have a problem with urinary retention requiring intermittent catheterization followed by Hernandez catheter placement with a new fever concerning for UTI on today's evaluation that is 02/24/2022, the patient is afebrile, patient is currently breathing comfortably on room air, patient denies having any chest andreea n or shortness of breath or cough no abdominal pain or diarrhea Objective - Vital Signs Vital signs: Vital Signs Temp 97.8 F 02/24/22 10:00 Pulse 78 02/24/22 10:00 Resp 18 02/24/22 10:00 BP 108/54 02/24/22 10:00 Pulse Ox 98 02/24/22 10:00 FiO2 Intake & Output 02/23/22 02/24/22 02/24/22 18:59 06:59 18:59 Intake Total 400 Output Total 1600 Balance 400 -1600 Intake: Intake, IV Titration 400 Amount Sodium Chloride 0.45% 1, 400 000 ml @ 50 mls/hr IV . Q20H [facility] Rx#:[id number] Output: Urine 1600 Uretheral (Hernandez) 200 Other: Voiding Method Indwelling Catheter - Exam GENERAL DESCRIPTION: An elderly male lying in bed in no distress RESPIRATORY SYSTEM: Unlabored breathing , decreased breath sounds at bases HEART: S1 S2 regular rate and rhythm , ABDOMEN: Soft , no tenderness EXTREMITIES: No edema feet - Labs CBC & Chem 7: 02/24/22 07:24 02/24/22 07:24 Labs: Abnormal Lab Results - Last 24 Hours (Table) 02/23/22 02/24/22 02/24/22 Range/Units 08:35 07:24 07:24 RBC 3.81 L (4.40-5.60) X 10*6/uL Hgb 11.3 L (13.0-17.0) g/dL Hct 36.1 L (39.6-50.0) % MCHC 31.3 L (32.0-37.0) g/dL Anion Gap 9.80 L (10.00-18.00) mmol/L BUN 8.0 L (9.0-27.0) mg/dL BUN/Creatinine Ratio 11.43 L (12.00-20.00) Ratio Calcium 8.5 L (8.7-10.3) mg/dL C-Reactive Protein 10.30 H (0.00-0.80) mg/dL Total Protein 5.7 L (6.2-8.2) g/dL Albumin 2.9 L (3.8-4.9) g/dL Albumin/Globulin Ratio 1.04 L (1.60-3.17) g/dL Microbiology - Last 24 Hours (Table) 02/22/22 16:01 Blood Culture - Preliminary Blood No Growth after 24 hours 02/22/22 16:10 Blood Culture - Preliminary Blood No Growth after 24 hours Assessment and Plan (1) Fever Current Visit: Yes Status: Acute Code(s): R50.9 - FEVER, UNSPECIFIED SNOMED Code(s): 999641649 Plan: 1patient with an episode of fever on 02/22/2022 and this patient admitted to hospital on 02/19/2022 for weakness and has been diagnosed with a COVID received monoclonal antibodies patient also have urine retention requiring intermittent catheterization however a Hernandez catheter has been placed yesterday patient did have normal urine admission however repeat UA significantly positive and could be likely the source of his fever likely from enteric gram-negative pathogen, as no evidence of any pneumonia and his abdominal soft on clinical examination. 2patient fever has resolved and will continue with Rocephin 2 g daily while waiting for the culture to finalize. Time with Patient: Less than 30
--- NOTE | 2022-02-25 15:27 | P.PN ---
Subjective Progress Note Date: 02/25/22 Principal diagnosis: Fever and likely urinary tract infection Patient is 81-year-old male presenting to the hospital for evaluation of weakness patient on admission Hospital have a fever and he tested positive for Covid 19, patient did receive monoclonal antibodies in the emergency room and no further treatment, as the patient's chest x-ray was negative also have a problem with urinary retention requiring intermittent catheterization followed by Hernandez catheter placement with a new fever concerning for UTI on today's evaluation that is 02/25/2022, the patient remains to be afebrile, patient is breathing comfortably on room air, patient denies any chest pain or s hortness of breath or cough , the patient has abdominal pain and no diarrhea reported Objective - Vital Signs Vital signs: Vital Signs Temp 98.5 F 02/25/22 10:00 Pulse 82 02/25/22 10:00 Resp 17 02/25/22 10:00 BP 114/56 02/25/22 10:00 Pulse Ox 98 02/25/22 10:00 FiO2 Intake & Output 02/24/22 02/25/22 02/25/22 18:59 06:59 18:59 Intake Total 650 600 240 Output Total 2200 Balance 650 -1600 240 Intake: Intake, IV Titration 650 Amount Sodium Chloride 0.45% 1, 600 000 ml @ 50 mls/hr IV . Q20H [facility] Rx#:[id number] cefTRIAXone 2 gm In 50 Sodium Chloride 0.9% 50 ml @ 100 mls/hr IVPB Q24HR [facility] Rx#:[id number] Oral 600 240 Output: Urine 2200 Uretheral (Hernandez) 2200 Other: Voiding Method Indwelling Catheter - Exam GENERAL DESCRIPTION: An elderly male lying in bed in no distress RESPIRATORY SYSTEM: Unlabored breathing , clear to auscultation HEART: S1 S2 regular rate and rhythm , ABDOMEN: Soft , no tenderness EXTREMITIES: No edema feet - Labs CBC & Chem 7: 02/24/22 07:24 02/24/22 07:24 Labs: Microbiology - Last 24 Hours (Table) 02/22/22 16:01 Blood Culture - Preliminary Blood No Growth after 48 hours 02/22/22 16:10 Blood Culture - Preliminary Blood No Growth after 48 hours Assessment and Plan (1) Fever Current Visit: Yes Status: Acute Code(s): R50.9 - FEVER, UNSPECIFIED SNOMED Code(s): 552501151 Plan: 1patient with an episode of fever on 02/22/2022 and this patient admitted to hospital on 02/19/2022 for weakness and has been diagnosed with a COVID received monoclonal antibodies patient also have urine retention requiring intermittent catheterization however a Hernandez catheter has been placed yesterday patient did have normal urine admission however repeat UA significantly positive and could be likely the source of his fever likely from enteric gram-negative pathogen, as no evidence of any pneumonia and his abdominal soft on clinical examination. 2patient has shown clinical improvement blood culture has been negative antibiotic will be switched over to oral Ceftin 7 days on discharge discussed with the admitting physician Time with Patient: Less than 30
--- NOTE | 2022-02-25 16:26 | CDI ---
Documentation Clarification Form Date: 02/25/2022 03:56:37 PM From: Linette Knott RN, CCDS Admit Date: 02/19/2022 02:44:00 PM Patient Name: Yousuf Cisneros Visit Number: [id number] Discharge Date: ATTENTION: The Clinical Documentation Specialists (CDI) and [facility] Coding Staff appreciate your assistance in clarifying documentation. Please respond to the clarification below the line at the bottom and electronically sign. The CDI & [facility] Coding staff will review the response and follow-up if needed. Please note: Queries are made part of the Legal Health Record. If you have any questions, please contact the author of this message via ITS. Dr. Lissa Daniel UTI is documented in the consult and progress notes starting on 02/23/22 and patient has intermittent t catheterization and Hernandez catheter insertion starting on 02/20/22. Additional clarification regarding the etiology of the UTI is requested. History/Risk Factors: Enlarged prostate, Obstructive uropathy, Constipation, chronic Clinical Indicators: 81-year-old male present to ED with weakness, fever and tested positive for Covid 19. He had urine retention, acute renal failure. CT scan was negative for hydronephrosis, required intermittent urinary catheterization, failed trial void and Hernandez catheter placed 02/22 Vital signs: 126/67 103 101.2, 130/73 102 100.5 97 % RA 02/19 Urinalysis: trace blood, Ur Leukocytes Esterase Negative, Urine WBC 3, Urine Bacteria Rare 02/22 Urinalysis: Urine blood Moderate, Ur Leukocyte Esterase Negative, Urine WBC 6 02/23 Urinalysis: Urine blood Small, Ur Leukocyte Esterase moderate, Ur WBC 10 Urine culture: None 02/19 Lab results: WBC 11.6 02/23 C - reactive protein 10.30, PSA 13 02/24 Labs results: WBC 6.65 Treatment: Rocephin 2 GM Daily [phone] Flomax 0.4 MG PO PC BRKFAST Please clarify the etiology of the UTI, if known: [ ] Hernandez catheter [ ] UTI not related to catheter [ x] Other condition, please specify __uti related to intermittent catherization [ ] Unable to determine (Template Last Revised: October 2020) MTDD
[2022-02-25 18:07] VITALS: BP 119/69; PULSE 76; RESP 16; TEMP 98.1
--- NOTE | 2022-03-01 10:09 | CDI ---
Documentation Clarification Form Date: 03/01/2022 09:36:57 AM From: Linette Knott RN, CCDS Admit Date: 02/19/2022 02:44:00 PM Patient Name: Yousuf Cisneros Visit Number: [id number] Discharge Date: 02/25/2022 06:32:00 PM ATTENTION: The Clinical Documentation Specialists (CDI) and [facility] Coding Staff appreciate your assistance in clarifying documentation. Please respond to the clarification below the line at the bottom and electronically sign. The CDI & [facility] Coding staff will review the response and follow-up if needed. Please note: Queries are made part of the Legal Health Record. If you have any questions, please contact the author of this message via ITS. Dr. Agustin Lopez Conflicting documentation has been found in the medical record. As attending physician, please provide clarification. 02/23-02/25 Attending: Urinary tract infection 02/25 Query response ID: UTI related to intermittent Catherization History/Risk Factors: Enlarged prostate, Obstructive uropathy, Constipation, chronic Clinical Indicators: 81-year-old male present to ED with weakness, fever and tested positive for Covid 19. He had urine retention, acute renal failure. CT scan was negative for hydronephrosis. He was noted to have obstructive uropathy and enlarged prostate with elevated PSA 13. He required intermittent urinary catheterization, failed trial void and Funez catheter placed. 02/22 Vital signs: 126/67 103 101.2, 130/73 102 100.5 97 % RA 02/19 Urinalysis: trace blood, Ur Leukocytes Esterase Negative, Urine WBC 3, Urine Bacteria Rare 02/22 Urinalysis: Urine blood Moderate, Ur Leukocyte Esterase Negative, Urine WBC 6 02/23 Urinalysis: Urine blood Small, Ur Leukocyte Esterase moderate, Ur WBC 10 Urine culture: None 02/19 Lab results: WBC 11.6 02/23 C - reactive protein 10.30, PSA 13 02/24 Labs results: WBC 6.65 Treatment: Rocephin 2 GM Daily [phone] Flomax 0.4 MG PO PC BRKFAST Ceftin 500 MG PO BID 02/25 Please clarify which diagnosis is most appropriate: [ ] UTI [ x ] UTI related to intermittent catherization [ ] Other (please specify) [ ] Unable to determine (Template Last Revised: October 2020) patient has obestructive uropathy and urinary retension >more than litre ,PSA 13 funez cath reinserted per Urollogy Dr. Asha george fever u/A with C/s lab did not do cultur&senstivity pt respond clinicalywell to tx MTDD
== END 2022-02-25 18:32 | DRG 682 ==
LOC: EC 11:50 → 4SSUR 14:44
PROVIDERS: ADMIT Internal Medicine; ATTEND Internal Medicine
PROC: XW033H6 Introduction of Other New Technology Monoclonal Antibody into Peripheral Vein, Percutaneous Approach, New Technology Group 6 (ICD-10-PCS; principal; 2022-02-19)
PROC: 8E0ZXY6 Isolation (ICD-10-PCS; 2022-02-19)
DX: N17.9 Acute kidney failure, unspecified (principal); I21.A1 Myocardial infarction type 2; N39.0 Urinary tract infection, site not specified; T83.518A Infection and inflammatory reaction due to other urinary catheter, initial encounter; U07.1 COVID-19; N13.8 Other obstructive and reflux uropathy; E87.2 Acidosis; R47.01 Aphasia; E46 Unspecified protein-calorie malnutrition; D50.9 Iron deficiency anemia, unspecified; N18.9 Chronic kidney disease, unspecified; D63.1 Anemia in chronic kidney disease; E78.5 Hyperlipidemia, unspecified; E86.0 Dehydration; E86.1 Hypovolemia; E87.5 Hyperkalemia; I69.392 Facial weakness following cerebral infarction; I69.328 Other speech and language deficits following cerebral infarction; I12.9 Hypertensive chronic kidney disease with stage 1 through stage 4 chronic kidney disease, or unspecified chronic kidney disease; N40.1 Benign prostatic hyperplasia with lower urinary tract symptoms; H57.02 Anisocoria; R53.81 Other malaise; Z98.42 Cataract extraction status, left eye; Z98.41 Cataract extraction status, right eye; H91.92 Unspecified hearing loss, left ear; K21.9 Gastro-esophageal reflux disease without esophagitis; R26.2 Difficulty in walking, not elsewhere classified; K59.09 Other constipation; R33.8 Other retention of urine; Z78.9 Other specified health status; Z79.82 Long term (current) use of aspirin; Z87.440 Personal history of urinary (tract) infections; Z68.25 Body mass index [BMI] 25.0-25.9, adult
CPT/HCPCS: 36415; 36600; 51702; 51798; 70450; 71045; 71046; 74019; 74176; 76770; 80048; 80053; 80061; 81001; 82306; 82607; 82746; 82805; 83036; 83540; 83550; 83605; 83615; 83735; 84100; 84145; 84153; 84443; 84484; 85025; 85379; 85610; 85652; 85730; 86140; 87040; 87502; 87635; 93005; 93308; 96361; 99291